=== PATIENT | male | born 1970 | race Caucasian/White ===

== ENCOUNTER 2019-03-04 00:25 | Inpatient (IN) | payer OTHER ==
[2019-03-04 00:57] LABS: Basophils % (Auto) 0.7 % (0.0-1.8); Eosinophils # (Auto) 0.1 K/mm3 (0.0-0.4); Eosinophils % (Auto) 2.4 % (0.0-4.3); Hematocrit 27.4 % (35.5-45.6); Hemoglobin 9.4 gm/dl (11.8-15.2); Lymphocytes # (Auto) 1.8 K/mm3 (1.2-5.4); Mean Corpuscular HGB Conc 34 % (32-34); Mean Corpuscular Volume 84 fl (84-94); Monocytes # (Auto) 0.5 K/mm3 (0.0-0.8); Red Blood Count 3.25 M/mm3 (3.65-5.03); Red Cell Distribution Width 15.3 % (13.2-15.2)
[2019-03-04 01:01] LABS: Platelet Count 83 K/mm3 (140-440)
[2019-03-04 01:18] LABS: Alanine Aminotransferase 34 units/L (7-56); Albumin 2.9 g/dL (3.9-5); BUN/Creatinine Ratio 58; Blood Urea Nitrogen 29 mg/dL (9-20); Calcium 8.4 mg/dL (8.4-10.2); Hemolysis Index 9
[2019-03-04] MEDS ORDERED: NACL 0.9% 1000 ML IV ONE (03:18)
[2019-03-04] MEDS ORDERED: LEVAQUIN 750MG/150ML 750 MG/150 ML BAG IV ONE (03:18)
[2019-03-04] MEDS ORDERED: TORADOL IV ONE (03:19)
[2019-03-04] MEDS ORDERED: ZOFRAN IV ONE (03:19)
[2019-03-04] MEDS ORDERED: BENTYL IM ONE (03:19)
--- NOTE | 2019-03-04 05:02 | Cat Scan Report ---
PROCEDURE: CT ABDOMEN PELVIS W CON TECHNIQUE: Computerized axial tomography of the abdomen and pelvis was performed in arterial and del ayed phases after the IV injection of iodinated nonionic contrast. HISTORY: left sided abd pain with hematochezia COMPARISONS: None . FINDINGS: Partially visualized intrathoracic contents are unremarkable. Cirrhotic morphology of the liver. Splenomegaly. Numerous varices including gastroesophageal varices. Cholelithiasis. Nondistended gallbladder. Trace ascites appears most closely associated with the sma ll bowel and colon. The pancreas and adrenal glands are unremarkable. Kidneys show no worrisome lesions, hydronephrosis, or calculi. Urinary bladder is unremarkable. Fluid-filled duodenum and jejunum with wall thickening and adjacent stranding and edema. Moderate sto ol burden. Colonic wall thickening is overall mild and most significant in the ascending colon. The a ppendix is predominantly air-filled and normal in caliber. No periappendiceal stranding. No pneumoper itoneum. No focal fluid collection to suggest abscess. Aorta is normal in course and caliber. Superficial soft tissues are unremarkable. No acute or aggressive appearing skeletal findings. IMPRESSION: Areas of wall thickening in the small bowel and colon with adjacent edema are suggestive of enterocol itis. No pneumoperitoneum or abscess formation. Cirrhotic morphology of the liver with sequela of portal hypertension including gastroesophageal vari kenny. This document is electronically signed by Daryl Roth MD., March 04 2019 05:00:13 AM ET
[2019-03-04] MEDS ORDERED: FLAGYL 500 MG/100 ML 500 MG/100 ML BAG IV ONE (05:06)
--- NOTE | 2019-03-04 05:16 | Emergency Department Report ---
ED Abdominal Pain HPI - General Chief Complaint: Dizziness Stated Complaint: DIZZINESS AND PAIN ABD PAIN LEFT SIDE Time Seen by Provider: 03/04/19 03:13 Source: police Mode of arrival: Wheelchair Limitations: No Limitations, Language Barrier - History of Present Illness Initial Comments: Patient is a 48-year-old male with past medical history of diabetes and liver cirrhosis who is presenting with nausea vomiting and abdominal pain. Patient states pain is left-sided predominantly started this morning. Pain is 10 out of 10 in severity. Patient has had several episodes of nausea vomiting. Patient alsoblood in his stool as well. Patient's dizziness when he stands and is having a difficult time walking secondary to dizziness. Patient has some throbbing sensation in his lower back as well. Patient denies any cough cold or congestion. Patient denies fever Severity scale (0 -10): 9 - Related Data Allergies Allergy/AdvReac Type Severity Reaction Status Date / Time No Known Allergies Allergy Unverified 03/04/19 00:39 ED Review of Systems ROS: Stated complaint: DIZZINESS AND PAIN ABD PAIN LEFT SIDE Other details as noted in HPI Comment: All other systems reviewed and negative ED Past Medical Hx - Past Medical History Previous Medical History?: Yes Hx Diabetes: Yes Hx Renal Disease: Yes Additional medical history: Cirrhosis of Liver, - Surgical History Past Surgical History?: Yes Additional Surgical History: stomach SX, - Social History Smoking Status: Current Every Day Smoker Substance Use Type: None ED Physical Exam - General Limitations: No Limitations, Language Barrier General appearance: alert, in no apparent distress - Head Head exam: Present: atraumatic, normocephalic - Eye Eye exam: Present: normal appearance, PERRL, EOMI - ENT ENT exam: Present: mucous membranes moist - Neck Neck exam: Present: normal inspection - Respiratory Respiratory exam: Present: normal lung sounds bilaterally. Absent: respiratory distress, wheezes, rales, rhonchi - Cardiovascular Cardiovascular Exam: Present: normal rhythm, tachycardia, normal heart sounds. Absent: systolic murmur, diastolic murmur, rubs, gallop - GI/Abdominal GI/Abdominal exam: Present: soft, tenderness (left sided), normal bowel sounds. Absent: distended, guarding, rebound, rigid - Rectal Rectal exam: Present: deferred - Extremities Exam Extremities exam: Present: normal inspection - Back Exam Back exam: Present: normal inspection - Neurological Exam Neurological exam: Present: alert, oriented X3 - Psychiatric Psychiatric exam: Present: normal affect, normal mood - Skin Skin exam: Present: warm, dry, intact, normal color. Absent: rash ED Course Vital Signs 03/04/19 03/04/19 03/04/19 00:30 00:36 03:10 Temperature 98.1 F 98.1 F Pulse Rate 112 H 113 H 102 H Respiratory 22 18 15 Rate Blood Pressure 97/60 97/60 O2 Sat by Pulse 100 100 100 Oximetry 03/04/19 03/04/19 03/04/19 03:15 03:31 03:40 Temperature Pulse Rate 100 H 100 H Respiratory 18 16 20 Rate Blood Pressure 115/63 115/63 O2 Sat by Pulse 100 100 Oximetry 03/04/19 03/04/19 03/04/19 04:21 04:30 04:43 Temperature Pulse Rate 102 H 92 H Respiratory 13 18 Rate Blood Pressure 115/63 106/42 O2 Sat by Pulse 98 Oximetry ED Medical Decision Making - Lab Data Result diagrams: 03/04/19 00:43 03/04/19 00:43 Lab Results 03/04/19 03/04/19 03/04/19 Range/Units 00:43 00:43 03:29 WBC 4.7 (4.5-11.0) K/mm3 RBC 3.25 L (3.65-5.03) M/mm3 Hgb 9.4 L (11.8-15.2) gm/dl Hct 27.4 L (35.5-45.6) % MCV 84 (84-94) fl MCH 29 (28-32) pg MCHC 34 (32-34) % RDW 15.3 H (13.2-15.2) % Plt Count 83 L (140-440) K/mm3 Lymph % (Auto) 38.0 H (13.4-35.0) % [place] % (Auto) 10.0 H (0.0-7.3) % Eos % (Auto) 2.4 (0.0-4.3) % Baso % (Auto) 0.7 (0.0-1.8) % Lymph # 1.8 (1.2-5.4) K/mm3 [place] # 0.5 (0.0-0.8) K/mm3 Eos # 0.1 (0.0-0.4) K/mm3 Baso # 0.0 (0.0-0.1) K/mm3 Seg Neutrophils % 48.9 (40.0-70.0) % Seg Neutrophils # 2.3 (1.8-7.7) K/mm3 APTT 30.9 (24.2-36.6) Sec. Sodium 138 (137-145) mmol/L Potassium 4.0 (3.6-5.0) mmol/L Chloride 103.5 (98-107) mmol/L Carbon Dioxide 26 (22-30) mmol/L Anion Gap 13 mmol/L BUN 29 H (9-20) mg/dL Creatinine 0.5 L (0.8-1.5) mg/dL Estimated GFR > 60 ml/min BUN/Creatinine Ratio 58 % Glucose 327 H (75-100) mg/dL Lactic Acid (0.7-2.0) mmol/L Calcium 8.4 (8.4-10.2) mg/dL Total Bilirubin 1.40 H (0.1-1.2) mg/dL AST 31 (5-40) units/L ALT 34 (7-56) units/L Alkaline Phosphatase 136 H (35-129) units/L Total Protein 5.3 L (6.3-8.2) g/dL Albumin 2.9 L (3.9-5) g/dL Albumin/Globulin Ratio 1.2 % Lipase 22 (13-60) units/L /14/19 Range/Units 03:29 WBC (4.5-11.0) K/mm3 RBC (3.65-5.03) M/mm3 Hgb (11.8-15.2) gm/dl Hct (35.5-45.6) % MCV (84-94) fl MCH (28-32) pg MCHC (32-34) % RDW (13.2-15.2) % Plt Count (140-440) K/mm3 Lymph % (Auto) (13.4-35.0) % [place] % (Auto) (0.0-7.3) % Eos % (Auto) (0.0-4.3) % Baso % (Auto) (0.0-1.8) % Lymph # (1.2-5.4) K/mm3 [place] # (0.0-0.8) K/mm3 Eos # (0.0-0.4) K/mm3 Baso # (0.0-0.1) K/mm3 Seg Neutrophils % (40.0-70.0) % Seg Neutrophils # (1.8-7.7) K/mm3 APTT (24.2-36.6) Sec. Sodium (137-145) mmol/L Potassium (3.6-5.0) mmol/L Chloride (98-107) mmol/L Carbon Dioxide (22-30) mmol/L Anion Gap mmol/L BUN (9-20) mg/dL Creatinine (0.8-1.5) mg/dL Estimated GFR ml/min BUN/Creatinine Ratio % Glucose (75-100) mg/dL Lactic Acid 2.50 H* (0.7-2.0) mmol/L Calcium (8.4-10.2) mg/dL Total Bilirubin (0.1-1.2) mg/dL AST (5-40) units/L ALT (7-56) units/L Alkaline Phosphatase (35-129) units/L Total Protein (6.3-8.2) g/dL Albumin (3.9-5) g/dL Albumin/Globulin Ratio % Lipase (13-60) units/L - Radiology Data Ordering Physician: RANJAN ADAN MD Date of Service: 03/04/19 Procedure(s): CT abdomen pelvis w con Accession Number(s): [id number] cc: RANJAN ADAN MD PROCEDURE: CT ABDOMEN PELVIS W CON TECHNIQUE: Computerized axial tomography of the abdomen and pelvis was performed in arterial and delayed phases after the IV injection of iodinated nonionic contrast. HISTORY: left sided abd pain with hematochezia COMPARISONS: None . FINDINGS: Partially visualized intrathoracic contents are unremarkable. Cirrhotic morphology of the liver. Splenomegaly. Numerous varices including gastroesophageal varices. Cholelithiasis. Nondistended gallbladder. Trace ascites appears most closely associated with the small bowel and colon. The pancreas and adrenal glands are unremarkable. Kidneys show no worrisome lesions, hydronephrosis, or calculi. Urinary bladder is unremarkable. Fluid-filled duodenum and jejunum with wall thickening and adjacent stranding and edema. Moderate stool burden. Colonic wall thickening is overall mild and most significant in the ascending colon. The appendix is predominantly air-filled and normal in caliber. No periappendiceal stranding. No pneumoperitoneum. No focal fluid collection to suggest abscess. Aorta is normal in course and caliber. Superficial soft tissues are unremarkable. No acute or aggressive appearing skeletal findings. IMPRESSION: Areas of wall thickening in the small bowel and colon with adjacent edema are suggestive of enterocolitis. No pneumoperitoneum or abscess formation. Cirrhotic morphology of the liver with sequela of portal hypertension including gastroesophageal varices. This document is electronically signed by Osiris Patel MD., March 04 2019 05:00:13 AM ET Transcribed By: KALYN Dictated By: OSIRIS PATEL MD Electronically Authenticated By: OSIRIS PATEL MD Signed Date/Time: 03/04/19501 DD/ 7 TD/TT: 03/04/19317 - Medical Decision Making Patient is a 48-year-old male presenting with left-sided abdominal discomfort. Patient's had nausea and vomiting as well as hematochezia. Patient is guaiac positive at this time. Patient's CT shows that he has acute enterocolitis. Patient started on Levaquin and Flagyl. Patient given IV hydration. His blood pressure responded well to fluid bolus. She is admitted to the hospitalist service at this time. Critical care attestation.: If time is entered above; I have spent that time in minutes in the direct care of this critically ill patient, excluding procedure time. ED Disposition Clinical Impression: Acute hemorrhagic colitis, Hyperglycemia Sepsis Qualifiers: Sepsis type: sepsis due to unspecified organism Qualified Code(s): A41.9 - Sepsis, unspecified organism Disposition: OP ADMIT IP TO THIS HOSP Is pt being admited?: Yes Does the pt Need Aspirin: No Condition: Stable Time of Disposition: 05:16
[2019-03-04] MEDS ORDERED: SODIUM CHLORIDE FLUSH SYRINGE 10 ML IV PRN (05:48)
[2019-03-04] MEDS ORDERED: ZOFRAN IV PRN (05:48)
[2019-03-04] MEDS ORDERED: PROTONIX IV NR (05:52)
--- NOTE | 2019-03-04 05:53 | History and Physical Report ---
History of Present Illness Date of examination: 03/04/19 History of present illness: 48-year-old man with a history of cirrhosis, diabetes comes emergency room with complaints of left lower quadrant that started 2 days ago. Pain is sharp, constant, intensity is 7/10, no radiation, cannot identify exacerbating factor. Complaining of diarrhea, 2-4 episodes a day, black stool small amounts for her here in the emergency room he had a large amount of melena. He has been feeling dizzy when changing position. From his description, he has a history of varices, status post banding. He is been taking Advil 2-41 month Review of systems Constitutional: no weight loss, chills, fever Ears, eyes, nose, mouth and throat: no nasal congestion, no nasal discharge, no sinus pressure, no vision change, no red eye. Neck: No neck pain or rigidity. Cardiovascular: no palpitations, chest pain Respiratory: no cough, shortness of breath Gastrointestinal: no hematochezia Genitourinary : no frequency , no hematuria Musculoskeletal: no joint swelling or muscle ache Integumentary: no rash, no pruritis Neurological: no parathesias, no focal weakness Endocrine: no cold or heat intolerance, no polyuria or polydipsia Hematologic/Lymphatic: no easy bruising, no easy bleeding, no gland swelling Allergic/Immunologic: no urticaria, no angioedema. PAST MEDICAL HISTORY:cirrhosis, diabetes PAST SURGICAL HISTORY: Surgery and stomach SOCIAL HISTORY: Denies alcohol, drugs, tobacco FAMILY HISTORY: Hypertension Medications and Allergies Allergies Allergy/AdvReac Type Severity Reaction Status Date / Time No Known Allergies Allergy Unverified 03/04/19 00:39 Active Meds: Active Medications Sodium Chloride (Nacl 0.9% 1000 Ml) 1,000 mls @ 150 mls/hr IV DIRECT HENRY Ondansetron HCl (Zofran) 4 mg IV Q8H PRN PRN Reason: Nausea And Vomiting Sodium Chloride (Sodium Chloride Flush Syringe 10 Ml) 10 ml IV BID HENRY Sodium Chloride (Sodium Chloride Flush Syringe 10 Ml) 10 ml IV PRN PRN PRN Reason: LINE FLUSH Exam - Physical Exam Narrative exam: General Apperance: The patient lying in bed, breathing comfortable HEENT: Normocephalic, atraumatic. Pupils equally round and reactive to light, EOMI, no sclericterus or JVD or thyromegaly or nodule. , no carotid bruit, mucous membranes moist, no exudate or erythema Heart: S1-S2, regular is rhythm Lungs: Clear to auscultation bilaterally, breathing comfortable Abdomen: Positive bowel sounds, soft, tender in left lower quadrant, nondistended, no organomegaly Extremities: No edema cyanosis clubbing Skin: no rash, nodule, warm and dry Neuro: cranial nerves 2-12 intact, speech is fluent, motor/sensory intact - Constitutional Vitals: Temp Pulse Resp BP Pulse Ox 98.1 F 92 H 18 106/42 98 03/04/19 00:36 03/04/19 04:30 03/04/19 04:43 03/04/19 04:30 03/04/19 04:43 Results - Labs CBC & Chem 7: 03/04/19 16:44 03/04/19 00:43 Labs: Abnormal lab results 03/04/19 03/04/19 03/04/19 Range/Units 00:43 00:43 03:29 RBC 3.25 L (3.65-5.03) M/mm3 Hgb 9.4 L (11.8-15.2) gm/dl Hct 27.4 L (35.5-45.6) % RDW 15.3 H (13.2-15.2) % Plt Count 83 L (140-440) K/mm3 Lymph % (Auto) 38.0 H (13.4-35.0) % [place] % (Auto) 10.0 H (0.0-7.3) % BUN 29 H (9-20) mg/dL Creatinine 0.5 L (0.8-1.5) mg/dL Glucose 327 H (75-100) mg/dL Lactic Acid 2.50 H* (0.7-2.0) mmol/L Total Bilirubin 1.40 H (0.1-1.2) mg/dL Alkaline Phosphatase 136 H (35-129) units/L Total Protein 5.3 L (6.3-8.2) g/dL Albumin 2.9 L (3.9-5) g/dL - Imaging and Cardiology CT scan - abdomen: report reviewed CT scan - pelvis: report reviewed Assessment and Plan Assessment GI bleed secondary to NSAID use Enterocolitis Cirrhosis Diabetes Plan Admit to medicine Start Protonix, octreotide drips, continue IV fluids Monitors serial hemoglobin, consult GI, critical care Case discussed with Dr. Lester Check stool studies, start Flagyl, Levaquin Check fingersticks and initiate insulin sliding scale DVT prophylaxis
[2019-03-04] MEDS ORDERED: D50W (25GM) Syringe IV PRN (05:54)
[2019-03-04] MEDS ORDERED: NACL 0.9% 1000 ML 1,000 ML IV SCH ×2 (06:00→13:00)
[2019-03-04 06:26] LABS: Hematocrit 22.3 % (35.5-45.6); Hemoglobin 7.7 gm/dl (11.8-15.2)
[2019-03-04] MEDS: PROTONIX 80 MG in NACL 0.9% 100 ML IV SCH ×2 (06:50→17:46)
[2019-03-04] MEDS ORDERED: PROTONIX IV ONE ×2 (06:52→07:31)
[2019-03-04] MEDS: SandoSTATIN 500 MCG in NACL 0.9% 100 ML IV SCH (07:00)
[2019-03-04] MEDS ORDERED: FLAGYL 500 MG/100 ML 500 MG/100 ML BAG IV SCH (07:00)
[2019-03-04] MEDS ORDERED: NACL 0.9% 1000 ML 1,000 ML ONE ×2 (07:41→14:46)
[2019-03-04] MEDS: HumuLIN R SUB-Q SCH ×4 (09:20→19:00)
[2019-03-04] MEDS ORDERED: NACL 0.9% 500 ML 500 ML IV ONE ×2 (10:08→21:03)
[2019-03-04 10:22] LABS: Hematocrit 21.5 % (35.5-45.6); Hemoglobin 7.2 gm/dl (11.8-15.2)
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
[2019-03-04] MEDS ORDERED: NACL 0.9% 1000 ML 2,000 ML ONE (11:07)
[2019-03-04] MEDS ORDERED: NACL 0.9% 1000 ML 2,000 ML IV ONE (11:09)
[2019-03-04 11:29] LABS: INR 1.37 (0.87-1.13)
[2019-03-04] MEDS ORDERED: HumuLIN R SUB-Q SCH (11:30)
[2019-03-04] MEDS ORDERED: NACL 0.9% 500 ML 500 ML ONE ×2 (11:33→14:35)
--- NOTE | 2019-03-04 11:55 | Consultation ---
History of Present Illness - Reason for Consult Consult date: 03/04/19 GI bleed - History of Present Illness Patient with a history of cirrhosis, portal hypertension and gastric and esophageal varices demonstrated on CT scan of the abdomen presents with bleeding and melena over the past 3 days. The patient is previously undergone variceal banding at [facility]. Past History Past Medical History: liver disease, other (as per HPI) Past Surgical History: Other (EGD with esophageal banding) Social history: no significant social history. denies: alcohol abuse (Quit drinking last year) Family history: hypertension Medications and Allergies Allergies Allergy/AdvReac Type Severity Reaction Status Date / Time No Known Allergies Allergy Unverified 03/04/19 00:39 Active Meds: Active Medications Dextrose (D50w (25gm) Syringe) 50 ml IV PRN PRN PRN Reason: Hypoglycemia Sodium Chloride (Nacl 0.9% 1000 Ml) 1,000 mls @ 150 mls/hr IV DIRECT HENRY Last Admin: 03/04/19 08:04 Dose: 150 mls/hr Documented by: Pantoprazole Sodium 80 mg/ (Sodium Chloride) 100 mls @ 10 mls/hr IV DIRECT S CH Last Admin: 03/04/19 06:50 Dose: 8 mg/hr, 10 mls/hr Documented by: Octreotide Acetate 500 mcg/ (Sodium Chloride) 101 mls @ 5.05 mls/hr IV TITR HENRY; Protocol Last Admin: 03/04/19 07:00 Dose: 25 mcg/hr, 5.05 mls/hr Documented by: Levofloxacin/Dextrose (Levaquin 750mg/150ml) 750 mg in 150 mls @ 100 mls/hr IV Q24HR HENRY; Protocol Metronidazole (Flagyl 500 Mg/100 Ml) 500 mg in 100 mls @ 100 mls/hr IV Q8HR HENRY; Protocol Sodium Chloride (Nacl 0.9% 1000 Ml) 2,000 mls @ 999 mls/hr IV BOLUS ONE Stop: 03/04/19 13:09 Insulin Human Regular (Humulin R) 0 units SUB-Q Q6HR HENRY; Protocol Last Admin: 03/04/19 09:20 Dose: 6 units Documented by: Ondansetron HCl (Zofran) 4 mg IV Q8H PRN PRN Reason: Nausea And Vomiting Sodium Chloride (Sodium Chloride Flush Syringe 10 Ml) 10 ml IV BID HENRY Sodium Chloride (Sodium Chloride Flush Syringe 10 Ml) 10 ml IV PRN PRN PRN Reason: LINE FLUSH Review of Systems All systems: negative Exam - Constitutional Vitals: Temp Pulse Resp BP Pulse Ox 98.2 F 89 16 99/54 96 03/04/19 08:05 03/04/19 10:48 03/04/19 10:48 03/04/19 10:48 03/04/19 10:48 General appearance: Present: no acute distress - EENT Eyes: Present: EOM intact ENT: hearing intact - Neck Neck: Present: supple - Respiratory Respiratory effort: normal - Cardiovascular Rhythm: regular - Abdominal General gastrointestinal: Present: soft Male genitourinary: Present: deferred - Rectal Rectal Exam: deferred - Psychiatric Psychiatric: appropriate mood/affect, cooperative Results - Labs CBC & Chem 7: 03/04/19 10:10 03/04/19 00:43 Labs: Abnormal lab results 03/04/19 03/04/19 03/04/19 Range/Units 00:43 00:43 03:29 RBC 3.25 L (3.65-5.03) M/mm3 Hgb 9.4 L (11.8-15.2) gm/dl Hct 27.4 L (35.5-45.6) % RDW 15.3 H (13.2-15.2) % Plt Count 83 L (140-440) K/mm3 Lymph % (Auto) 38.0 H (13.4-35.0) % [place] % (Auto) 10.0 H (0.0-7.3) % PT (12.2-14.9) Sec. INR (0.87-1.13) BUN 29 H (9-20) mg/dL Creatinine 0.5 L (0.8-1.5) mg/dL Glucose 327 H (75-100) mg/dL POC Glucose (70-105) Lactic Acid 2.50 H* (0.7-2.0) mmol/L Total Bilirubin 1.40 H (0.1-1.2) mg/dL Alkaline Phosphatase 136 H (35-129) units/L Total Protein 5.3 L (6.3-8.2) g/dL Albumin 2.9 L (3.9-5) g/dL Crossmatch 03/04/19 03/04/19 03/04/19 Range/Units 06:06 08:21 10:10 RBC (3.65-5.03) M/mm3 Hgb 7.7 L 7.2 L (11.8-15.2) gm/dl Hct 22.3 L 21.5 L (35.5-45.6) % RDW (13.2-15.2) % Plt Count (140-440) K/mm3 Lymph % (Auto) (13.4-35.0) % [place] % (Auto) (0.0-7.3) % PT (12.2-14.9) Sec. INR (0.87-1.13) BUN (9-20) mg/dL Creatinine (0.8-1.5) mg/dL Glucose (75-100) mg/dL POC Glucose 320 H (70-105) Lactic Acid (0.7-2.0) mmol/L Total Bilirubin (0.1-1.2) mg/dL Alkaline Phosphatase (35-129) units/L Total Protein (6.3-8.2) g/dL Albumin (3.9-5) g/dL Crossmatch 03/04/19 03/04/19 Range/Units 10:10 10:10 RBC (3.65-5.03) M/mm3 Hgb (11.8-15.2) gm/dl Hct (35.5-45.6) % RDW (13.2-15.2) % Plt Count (140-440) K/mm3 Lymph % (Auto) (13.4-35.0) % [place] % (Auto) (0.0-7.3) % PT 17.8 H (12.2-14.9) Sec. INR 1.37 H (0.87-1.13) BUN (9-20) mg/dL Creatinine (0.8-1.5) mg/dL Glucose (75-100) mg/dL POC Glucose (70-105) Lactic Acid (0.7-2.0) mmol/L Total Bilirubin (0.1-1.2) mg/dL Alkaline Phosphatase (35-129) units/L Total Protein (6.3-8.2) g/dL Albumin (3.9-5) g/dL Crossmatch See Detail - Imaging and Cardiology CT scan - abdomen: image reviewed Assessment and Plan Patient with recurrent bleeding with melena and a history of portal hypertension and gastric and esophageal varices. Patient will need to be op timized medically including transfusion of blood and blood products with correction of coagulopathy. Patient is scheduled to undergo endoscopy. Ultimately, the patient may require transjugular intrahepatic portosystemic shunt placement. If this need arises, would recommend the patient be transferred to either [place] or [facility] given a lack of resources.
[2019-03-04 12:57] LABS: Bacteria,Urine 1+ /HPF (Negative); Bilirubin,Urine NEG (Negative); Blood,Urine NEG (Negative); Color,Urine Yellow (Yellow); Protein,Urine <15 mg/dL mg/dL (Negative)
--- NOTE | 2019-03-04 13:10 | Anesthesia Consultation ---
Anesthesia Consult and Med Hx Date of service: 03/04/19 - Airway Anesthetic Teeth Evaluation: Poor ROM Head & Neck: Adequate Mental/Hyoid Distance: Adequate Mallampati Class: Class III Intubation Access Assessment: Possibly Difficult - Pulmonary Exam CTA: Yes - Cardiac Exam Cardiac Exam: RRR - Pre-Operative Health Status ASA Pre-Surgery Classification: ASA4 Proposed Anesthetic Plan: MAC - Pulmonary Hx Respiratory Symptoms: No - Cardiovascular System Hx Hypertension: No Hx Heart Attack/AMI: No Hx Percutaneous Transluminal Coronary Angioplasty (PTCA): No Hx Cardia Arrhythmia: No - Central Nervous System CVA: No Hx Psychiatric Problems: No - Gastrointestinal Hx Ulcer: Yes Hx Gastroesophageal Reflux Disease: Yes - Endocrine Hx Renal Disease: Yes Hx Cirrhosis: Yes (complicated by portal HTN, hx bleeding varices) Hx Insulin Dependent Diabetes: Yes Hx Thyroid Disease: No - Hematic Hx Anemia: Yes - Additional Comments Anesthesia Medical History Comments: PMH EtOH cirrhosis complicated by hx bleeding esophageal varices s/p banding, renal disease, DM, GERD presenting with bloody stools concerning for recurrent variceal bleed. Hyptoensive in ED with acute drop in Hb, now s/p 1 unit pRBCs. Glucose elevated. Plan EGD with possible banding.
--- NOTE | 2019-03-04 13:11 | Anesthesia Day of Surgery ---
Anesthesia Day of Surgery - Day of Surgery Patient Examined: Yes Patient H&P Reviewed: Yes Patient is NPO: Yes
[2019-03-04] MEDS ORDERED: HumuLIN R IV ONE (13:30)
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
[2019-03-04] MEDS ORDERED: XYLOCAINE 2% INFILTRATI ONE (13:56)
[2019-03-04] MEDS ORDERED: VERSED IV ONE (13:57)
[2019-03-04] MEDS ORDERED: DIPRIVAN 10 MG/ML IV ONE ×2 (13:57→15:14)
[2019-03-04] MEDS ORDERED: AMIDATE IV ONE (13:57)
--- NOTE | 2019-03-04 14:27 | Consultation ---
History of Present Illness Consult date: 03/04/19 Requesting physician: HAI SOSA Reason for consult: other (Acute G.I. Bleed) History of present illness: PULMONARY/CCM CONSULT NOTE (Full dictation # [id number]) Please see dictated notes for full details Past History Past Medical History: liver disease, other (as per HPI) Past Surgical History: Other (EGD with esophageal banding) Social history: no significant social history. denies: alcohol abuse (Quit drinking last year) Family history: hypertension Medications and Allergies Allergies Allergy/AdvReac Type Severity Reaction Status Date / Time No Known Allergies Allergy Unverified 03/04/19 00:39 Active Meds: Active Medications Dextrose (D50w (25gm) Syringe) 50 ml IV PRN PRN PRN Reason: Hypoglycemia Sodium Chloride (Nacl 0.9% 1000 Ml) 1,000 mls @ 150 mls/hr IV DIRECT HENRY Last Admin: 03/04/19 08:04 Dose: 150 mls/hr Documented by: Pantoprazole Sodium 80 mg/ (Sodium Chloride) 100 mls @ 10 mls/hr IV DIRECT HENRY Last Admin: 03/04/19 06:50 Dose: 8 mg/hr, 10 mls/hr Documented by: Octreotide Acetate 500 mcg/ (Sodium Chloride) 101 mls @ 5.05 mls/hr IV TITR HENRY; Protocol Last Admin: 03/04/19 07:00 Dose: 25 mcg/hr, 5.05 mls/hr Documented by: Levofloxacin/Dextrose (Levaquin 750mg/150ml) 750 mg in 150 mls @ 100 mls/hr IV Q24HR HENRY; Protocol Metronidazole (Flagyl 500 Mg/100 Ml) 500 mg in 100 mls @ 100 mls/hr IV Q8HR HENRY; Protocol Sodium Chloride (Nacl 0.9% 1000 Ml) 1,000 mls @ 50 mls/hr IV DIRECT HENRY Last Admin: 03/04/19 13:05 Dose: 50 mls/hr Documented by: Insulin Human Regular (Humulin R) 0 units SUB-Q Q6HR HENRY; Protocol Last Admin: 03/04/19 09:20 Dose: 6 units Documented by: Ondansetron HCl (Zofran) 4 mg IV Q8H PRN PRN Reason: Nausea And Vomiting Sodium Chloride (Sodium Chloride Flush Syringe 10 Ml) 10 ml IV BID HENRY Sodium Chloride (Sodium Chloride Flush Syringe 10 Ml) 10 ml IV PRN PRN PRN Reason: LINE FLUSH Physical Examination Vital signs: Vital Signs Temp Pulse Resp BP Pulse Ox 98.1 F 112 H 22 97/60 100 03/04/19 00:30 03/04/19 00:30 03/04/19 00:30 03/04/19 00:30 03/04/19 00:30 Results - Laboratory Findings CBC and BMP: 03/04/19 10:10 03/04/19 00:43 PT/INR, D-dimer PT 17.8 Sec. (12.2-14.9) H 03/04/19 10:10 INR 1.37 (0.87-1.13) H 03/04/19 10:10 Abnormal lab findings: Abnormal Labs 03/04/19 03/04/19 03/04/19 00:43 00:43 03:29 RBC 3.25 L Hgb 9.4 L Hct 27.4 L RDW 15.3 H Plt Count 83 L Lymph % (Auto) 38.0 H [place] % (Auto) 10.0 H PT INR BUN 29 H Creatinine 0.5 L Glucose 327 H POC Glucose Lactic Acid 2.50 H* Total Bilirubin 1.40 H Alkaline Phosphatase 136 H Total Protein 5.3 L Albumin 2.9 L Ur Specific [place] Urine WBC (Auto) Crossmatch 03/04/19 03/04/19 03/04/19 06:06 08:21 10:10 RBC Hgb 7.7 L 7.2 L Hct 22.3 L 21.5 L RDW Plt Count Lymph % (Auto) [place] % (Auto) PT INR BUN Creatinine Glucose POC Glucose 320 H Lactic Acid Total Bilirubin Alkaline Phosphatase Total Protein Albumin Ur Specific [place] Urine WBC (Auto) Crossmatch 03/04/19 03/04/19 03/04/19 10:10 10:10 12:44 RBC Hgb Hct RDW Plt Count Lymph % (Auto) [place] % (Auto) PT 17.8 H INR 1.37 H BUN Creatinine Glucose POC Glucose Lactic Acid Total Bilirubin Alkaline Phosphatase Total Protein Albumin Ur Specific [place] 1.043 H Urine WBC (Auto) 12.0 H Crossmatch See Detail 03/04/19 03/04/19 13:07 13:59 RBC Hgb Hct RDW Plt Count Lymph % (Auto) [place] % (Auto) PT INR BUN Creatinine Glucose POC Glucose 306 H 257 H Lactic Acid Total Bilirubin Alkaline Phosphatase Total Protein Albumin Ur Specific [place] Urine WBC (Auto) Crossmatch
[2019-03-04] MEDS ORDERED: NACL 0.9% 100 ML ONE (14:35)
--- NOTE | 2019-03-04 14:38 | Post Operative Note ---
Pre-op diagnosis: Melena Post-op diagnosis: other (Active esophageal variceal bleed, and gastric varices noted) Findings: 1. Distal esophageal varices, one with fibrin plug near Z-line, which subsequently actively bled. Total of 7 bands placed, 3 of which dislodged, possibly with retching. 2. Gastric varices. Procedure: EGD with variceal banding Anesthesia: GETA (After MAC, and decompensation due to bleeding), MAC Surgeon: MOI SCHMIDT Estimated blood loss: 50-100ml Pathology: none Condition: critical Disposition: ICU (Continue octreotide drip, IV bid PPI. Transfuse as needed.)
[2019-03-04] MEDS ORDERED: ZEMURON IV ONE (14:40)
[2019-03-04] MEDS ORDERED: VERSED ONE (14:42)
--- NOTE | 2019-03-04 15:06 | Operative Report ---
PROCEDURE: Upper endoscopy with variceal banding. HISTORY: The patient is a 48-year-old man with a known history of cirrhosis due to alcohol and type 1 diabetes. He has a history of a variceal bleed with banding last year. He presented with melena starting yesterday. No hematemesis. Procedure, Indications, risks, and benefits were explained and consent was obtained. The patient was placed in left lateral decubitus position and sedated. Video upper endoscope was passed through the mouth and oropharynx into the descending duodenum. Scope was then gradually withdrawn with close inspection of mucosa. FINDINGS: 1. Grade 2 distal esophageal varices noted initially. There was no active bleeding initially. After scope passage into the descending duodenum and coming back, decision was made that this was the likely source of bleeding. Inside [employer] Account Manager was attached to the scope and the scope was reintroduced. On reintroduction of the scope, fibrin plug was noted in the distal esophageal varix and this was suctioned in and a rubber band placed. Subsequently, 3 more rubber bands were placed and then the patient was noted to retch and then start actively bleeding. The distal esophageal varix variceal band was noted to have dislodged and 2 attempts were made to re-suction and replace it, which were unsuccessful. At this time, the patient started to decompensate and become hypoxic. Scope was therefore withdrawn, and the patient was intubated emergently. Afterwards, scope was reintroduced and 2 more bands were placed in good position with 1 capturing the area that had previously bled just near the Z-line. There was no active bleeding noted at the end of the procedure. A total of 7 bands had been deployed, though it appeared that 3 had dislodged. 2. Retroflex examination revealed grape cluster like gastric varices with no stigmata of bleeding. 3. Remainder stomach was normal except for patchy erythema consistent with portal hypertension. There was some fresh residual blood and clot noted in the proximal stomach. 4. Normal appearing duodenal bulb and duodenum. The patient tolerated the procedure, though he did become hypoxic requiring intubation during the procedure. At the end of it, he was hemodynamically stable. Pulse was 97. Systolic blood pressure was 115. IMPRESSION: 1. Esophageal varices -- with active bleeding noted during the procedure from a distal aspect. This was banded twice with the first band becoming dislodged probably during retching. Hemostasis was achieved. 2. Gastric varices noted in cardia. 3. Portal gastropathy. PLAN: 1. Monitor closely in ICU on octreotide drip. 2. Supportive care as needed with transfusions, etc. 3. Ultimately, may benefit from TIPS procedure, but this would need to be done at a transplant center. If he remains stable, we will try and determine whether he is appropriate to transfer to a liver transplant center for TIPS procedure. [facility]# [id number] HRC/NTS
[2019-03-04] MEDS ORDERED: DIPRIVAN 10 MG/ML 1,000 MG/100 ML BOTTLE IV ONE (15:19)
--- NOTE | 2019-03-04 15:20 | Event Note ---
Date: 03/04/19 Pt with Active esophageal variceal bleed, and gastric varices Gi completed EGD with findings 1. Distal esophageal varices, one with fibrin plug near Z-line, which subsequently actively bled. Total of 7 bands placed, 3 of which dislodged, possibly with retching. 2. Gastric varices. Pt with variceal banding but developed decompensation due to bleeding and had to be intubated and now needs sedation with Diprivan. PRBCs ordered and pressors as needed I d/w GI and Anesthesia The high probability of a clinically significant, sudden or life threatening deterioration of the [Hemodynamic and GI] system(s) required my full and direct attention, intervention and personal management. The aggregate critical care time was [31] minutes. This time is in addition to time spent performing reported procedures but includes the following: [x] Data Review and interpretation [x] Patient assessment and monitoring of vital signs [x] Documentation [x] Medication orders and management
[2019-03-04] MEDS: DIPRIVAN 10 MG/ML 1,000 MG/100 ML BOTTLE IV SCH ×2 (15:30→22:07)
--- NOTE | 2019-03-04 15:36 | Post Anesthesia Evaluation ---
- Post Anesthesia Evaluation Patient Participated: No Airway Patent: Yes Stable Respiratory Function: Yes Nausea/Vomiting: No Temp > 96.8F: Yes Pain Manageable: Yes Adequeate Hydration: Yes Anesthesia Complications: No Block Receding Appropriately: Not Applicable Patient on Ventilator: Yes (FiO2 100%, Peep 6) Other Comments: During procedure, patient experienced significant desaturation. Simultaneously, bleeding was noted from esophageal varices. Scope was withdrawn and patient was initially ventilated with BVM and then intubated (see anesthesia record for details). No significant aspiration noted during intubation. SpO2 improved quickly to 100% and procedure continued. 1 unit pRBCs was hung. At conclusion of procedure, patient transported to ICU with monitors, intubated, ventilated with AMBU, VSS throughout. On arrival to ICU, handoff given to RT and RN, patient placed on ventilator and sedation started per ICU orders.
[2019-03-04] MEDS ORDERED: ARTIFICIAL TEARS OPHTH OINT OU PRN (15:49)
[2019-03-04] MEDS ORDERED: SUBLIMAZE IV PRN (15:49)
[2019-03-04] MEDS ORDERED: VASELINE LIP THERAPY TP PRN (15:49)
[2019-03-04] MEDS: fentaNYL DRIP Premix 2,000 MCG/100 ML BAG IV SCH (16:30)
[2019-03-04] MEDS: SODIUM CHLORIDE FLUSH SYRINGE 10 ML IV SCH ×2 (17:05→22:13)
--- NOTE | 2019-03-04 17:35 | XRay Report ---
PROCEDURE: XR CHEST 1V AP TECHNIQUE: Chest radiograph single view. HISTORY: ETT placement COMPARISONS: None . FINDINGS: Heart: Normal. Mediastinum/Vessels: Normal. Lungs/Pleural space: Linear atelectasis noted at the left base Bony thorax: No acute osseous abnormality. Life support devices: ET tube present. Tip is between thoracic inlet and the linda IMPRESSION: Left basilar atelectasis ET in satisfactory position This document is electronically signed by Britton Resendiz MD., March 04 2019 05:33:06 PM ET
[2019-03-04 18:22] LABS: Hematocrit 23.7 % (35.5-45.6)
[2019-03-04] MEDS ORDERED: LEVOPHED DRIP 4 MG/NS 250 ML 4 MG/250 ML BAG IV SCH (19:00)
[2019-03-04] MEDS ORDERED: Vasostrict 20 UNIT in NACL 0.9% 100 ML IV SCH (19:00)
--- NOTE | 2019-03-04 22:02 | Consultation ---
CONSULTING PHYSICIAN: Dr. Parker. REASON FOR CONSULTATION: Acute GI bleed and now acute hypoxemic respiratory failure, on mechanical ventilator support. CHIEF COMPLAINT AND HISTORY OF PRESENT ILLNESS: The patient is a 48-year-old male with past medical history significant amongst other things for a diagnosis of liver cirrhosis, liver disease and a prior history of alcohol abuse, reportedly quit drinking about a year ago, came in complaining of left lower quadrant pain started 2 days before he came in, pain was sharp, constant 7/10 without radiation. He denied any relieving or exacerbating factors. He had complained of about diarrhea, melena type stools and on the day of presentation in the Emergency Room, he had a large amount of melena. He began feeling dizzy. His history suggested variceal disease and he had been banded in the past. He was evaluated in the Emergency Room, stabilized and he was taken to the endoscopy suite. It seems like while at the endoscopy suite, he required intubation for the EGD procedure. They reported that he had variceal banding done in the ED suite, brought into the ICU post-endoscopy, where I stopped by to see him. When I stopped by to see him, he was on the mechanical ventilator. He was on a propofol drip that had just been started. With regards to the patient's tobacco use/abuse history, the records indicate that he is not a smoker. The above is an unfortunately as much of the history of presentation as I have. PAST MEDICAL HISTORY: History of liver cirrhosis, history of diabetes. He is obese, history of alcohol abuse. PAST SURGICAL HISTORY: He has had stomach surgery. Nature of which I do not know. MEDICATIONS: He was on at the time I stopped by to see him were reviewed, pertinent medications include the following: Levaquin 750 mg IV daily, Flagyl 500 mg IV q. 8 hours. Octreotide drip was going at 25 mcg per hour, Zofran 4 mg IV q. 8 hours p.r.n. nausea and vomiting, Protonix drip was going at 8 mg per hour and the propofol drip had just been started. ALLERGIES: No known drug allergies. DIET: Obese gentleman, acute weight loss or gain history is unknown. FAMILY AND SOCIAL HISTORY: According to the records, lives in the community. He has a history of alcohol abuse, but none in the past year plus. They denied tobacco or illicit drug use or abuse. There is a family history of hypertension. REVIEW OF SYSTEMS: Unobtainable secondary to patient's medical and mental condition. Since he has been here, he had the melena in the ER. No witnessed seizures. No hematochezia, no hematemesis otherwise. Review of systems is otherwise unobtainable. PHYSICAL EXAMINATION: VITAL SIGNS: At presentation in the Emergency Room, review of the vital signs, he was afebrile, temperature 98.1 degrees Fahrenheit with a pulse of 112, respiratory rate of 22, blood pressure 97/60, oxygen sats 100%, inspired oxygen concentration at that time was not recorded. When I stopped by to see him, he was on the mechanical ventilator, actually PRVC AC rate of 14, tidal volume 500, PEEP of 6, 100% FiO2 and 99% sats. GENERAL: He is a middle-aged male: Normocephalic, atraumatic, riding the mechanical ventilator without significant patient ventilator dyssynchrony. HEAD, EYES, EARS, NOSE AND THROAT: He is anicteric. No conjunctival erythema. Oropharynx is moist. He has ET tube at 23-24 cm at the lips. Large neck circumference. No gross jugular venous distention, no thyromegaly. Grossly, no palpable lymph nodes in the supraclavicular or submandibular lymph node chains. LUNGS: Auscultation of both lung akins unremarkable, essentially lungs are clear bilaterally. HEART: Heart sounds 1 and 2 are heard, regular rate and rhythm at the time of my evaluation, without rubs or murmurs. ABDOMEN: Soft, full, bowel sounds are positive, but hypoactive. No palpable hepatosplenomegaly. Nontender. EXTREMITIES: Without overt digital clubbing or cyanosis. No pedal edema. Pedal pulses were palpable and strong bilaterally. NEUROLOGIC: Pupils were equal, round, about 3 cm reactive to light. Extraocular muscle movements could not be assessed. He had spontaneous movements to all extremities. No fasciculations. No spasticity. The skin was of normal turgor without overt cellulitis or rash. LABORATORY DATA: From my review are as follows: Admission white cell count 4700 with a hemoglobin of 9.4, hematocrit of 27.4 and platelet count of 83. No manual differential. INR was 1.37. Serum sodium 138, potassium 4.0, chloride 104, bicarbonate 26, BUN 29, creatinine 0.5, glucose was 327. Lactic acid level was 2.5 at presentation, is now down to 1.60. Total bilirubin was 1.4, albumin 2.9. Otherwise, liver function tests within normal limits. Lipase is within normal limits. Urinalysis was negative for nitrites. He did have trace leukocyte esterase. He had moderate leukocyte esterase, 12 white cells per high power field. Two sets of blood cultures, no growth to date. He had a CT scan of the abdomen and pelvis that reports areas of wall thickening in the small bowel and colon suggestive of enterocolitis, cirrhotic liver and gastroesophageal varices. Lung windows were essentially unremarkable. ASSESSMENT: 1. Acute gastrointestinal bleed secondary to esophageal varices. 2. Esophageal varices. 3. History of liver cirrhosis. 4. Acute blood loss anemia. 5. Abdominal pain. 6. Obesity. 7. Diabetes. 8. Thrombocytopenia. 9. Lactic acidosis. 10. Acute kidney injury. PLAN: Keep him on full mechanical ventilator support overnight. Continue to watch him hemodynamically. Serial H and H to evaluate for blood loss. Continue the octreotide drip. Continue the Protonix drip. He is now status post banding. Oxygen will be weaned to keep sats greater than or equal to over 90%. Aspiration precautions will be maintained. Ventilator-associated pneumonia bundle has been instituted. We will keep him intubated to protect his airway for now. He is getting a little hypotensive. We will back down on this propofol sedation, use fentanyl. Vasopressors will be started as necessary to keep mean arterial pressures greater than or equal to over 65 mmHg. A PICC line consult will be placed in case he does decompensate, stable at this point. We will continue empiric antibiotic therapy for the variceal bleed and the possible enterocolitis. Blood cultures will be followed. Anti-infectives will be deescalated based on results of clinical and microbiologic data. He may also have a urinary tract infection. A CRP level will be ordered and trended as necessary to treating engineer helper clinical decision making. I will defer to the GI team for further management of the variceal bleeds. Flu and pneumonia vaccination will be addressed per protocol. Thank you very much for the consult, Dr. Parker, Dr. Hart. We will follow along and make further recommendations as picture progresses/becomes clearer. He is critically ill on life-sustaining interventions including mechanical ventilatory support at high risk of from decompensation of the gastrointestinal, cardiac and pulmonary systems. At this point, I have spent about 35-40 minutes of critical care time without overlap and excluding any procedural time that may be necessary. JOB# [id number] KENDRA/COLEMAN DUNHAM
[2019-03-04] MEDS: FLAGYL 500 MG/100 ML 500 MG/100 ML BAG IV SCH ×2 (22:08→22:09)
[2019-03-05] MEDS ORDERED: LEVAQUIN 750MG/150ML 750 MG/150 ML BAG IV SCH (03:00)
--- NOTE | 2019-03-05 03:38 | XRay Report ---
PROCEDURE: XR CHEST 1V AP TECHNIQUE: Chest radiograph single view. HISTORY: follow up respiratory failure COMPARISONS: None . FINDINGS: Heart: Normal. Mediastinum/Vessels: Normal. Lungs/Pleural space: Lungs are expanded. There is atelectasis at the left lung base. There are no ac paola infiltrates, effusions or pneumothoraces.. Bony thorax: No acute osseous abnormality. Life support devices: The endotracheal tube is approximately 4 cm above the linda.. IMPRESSION: The heart size is normal.. Lungs are expanded. There is atelectasis at the left lung base. There are no acute infiltrates, effus ions or pneumothoraces.. The endotracheal tube is approximately 4 cm above the linda.. This document is electronically signed by Nikhil Mantilla MD., March 05 2019 03:36:16 AM ET
[2019-03-05] MEDS: PROTONIX 80 MG in NACL 0.9% 100 ML IV SCH (03:56)
[2019-03-05] MEDS: SandoSTATIN 500 MCG in NACL 0.9% 100 ML IV SCH (03:56)
[2019-03-05] MEDS: fentaNYL DRIP Premix 2,000 MCG/100 ML BAG IV SCH ×4 (03:57→22:30)
[2019-03-05] MEDS: DIPRIVAN 10 MG/ML 1,000 MG/100 ML BOTTLE IV SCH ×3 (04:49→16:52)
[2019-03-05 05:15] LABS: Basophils % (Auto) 0.6 % (0.0-1.8); Eosinophils # (Auto) 0.1 K/mm3 (0.0-0.4); Eosinophils % (Auto) 2.3 % (0.0-4.3); Hematocrit 27.5 % (35.5-45.6); Hemoglobin 9.6 gm/dl (11.8-15.2); Lymphocytes # (Auto) 1.2 K/mm3 (1.2-5.4); Lymphocytes % (Auto) 21.3 % (13.4-35.0); Mean Corpuscular HGB Conc 35 % (32-34); Mean Corpuscular Volume 87 fl (84-94); Monocytes # (Auto) 0.5 K/mm3 (0.0-0.8); Monocytes % (Auto) 9.4 % (0.0-7.3); Red Blood Count 3.15 M/mm3 (3.65-5.03); Red Cell Distribution Width 16.4 % (13.2-15.2)
[2019-03-05 05:38] LABS: BUN/Creatinine Ratio 40; Blood Urea Nitrogen 28 mg/dL (9-20); Calcium 7.3 mg/dL (8.4-10.2); Hemolysis Index 16
[2019-03-05] MEDS: HumuLIN R SUB-Q SCH ×2 (05:47)
[2019-03-05] MEDS: FLAGYL 500 MG/100 ML 500 MG/100 ML BAG IV SCH ×3 (05:48→22:47)
[2019-03-05 07:13] LABS: Platelet Count 47 K/mm3 (140-440)
--- NOTE | 2019-03-05 07:49 | Progress Note ---
Assessment and Plan -Acute hypoxemic respiratory failure on MVS -Hypovolemic shock. -GI bleed. -Enterocolitis. -Cirrhosis -Coagulopathy -Diabetes mellitus type II. -Active esophageal variceal bleed, and gastric varices GI completed EGD with findings 1. Distal esophageal varices, one with fibrin plug near Z-line, which subseque ntly actively bled. Total of 7 bands placed, 3 of which dislodged, possibly with retching. 2. Gastric varices. -Continue with MVS support -VAP bundle addressed -SATs and SBTs as tolerated, no further interventions planned by GI. If he bleeds, then plan is to transfer to tertiary center with capabilities for TIPS -Vasopressor support keep MAP>65 -Continue bronchodilators with pulmonary hygiene per RT - On Octreotide and pantoprazole -Supportive transfusions as indicated, keep Hgb>7g/dL -Aspiration precautions with HOB >40 -VTE prophylaxis( SCDs for now, in view of thrombocytopenia and GIB) - Supplemental oxygen as needed to keep O2 sat's > 90% -Lung protective strategies - CXR and ABG in am -Accuchecks with glycemic control per SSI for target blood glucose <180mg/dL - Titrate sedation to RASS 0 to -1 - Prevention of delirium, maintenance of sleep-wake cycle - Avoid nephrotoxic agents, adjust all antibiotics and medications for CrCL and GFR -Empiric antibiotics for enterocolitis, de-escalate and monitor clinically -Aspiration precautions -If no enteral feeding int eh next 72 hours will need to address alternate sources of nutrition _Substance abuse counselling once he is liberated from MVS and is able to actively participate in the discussions -Discussed with ICU team during ICU-IDT rounds CONDITION: CRITICAL PROGNOSIS: GUARDED CODE STATUS: FULL CODE The high probability of a clinically significant, sudden or life threatening deterioration of the [Respiratory, hemodynamic and GI] system(s) required my full and direct attention, intervention and personal management. The aggregate critical care time was [31] minutes. This time is in addition to time spent performing reported procedures but includes the following: [x] Data Review and interpretation [x] Patient assessment and monitoring of vital signs [x] Documentation [x] Medication orders and management Subjective Date of service: 03/05/19 Interval history: Patient is seen today for: Acute GI bleed; Esophageal varices s/p banding; Acute hypoxemic respiratory failure on MVS; Hemorrhagic Shock; liver cirrhosis; Acute blood loss anemia; Abdominal pain; Obesity; Diabetes; Thrombocytopenia; Lactic acidosis; Acute kidney injury. Seen and examined at bedside; 24hour events reviewed; vitals, labs, medications, chart reviewed; nursing and respiratory care staff consulted; no adverse overnight events reported to me; resting peacefully in bed; on mechanical ventilatory support, remains agitated on and off requiring fentanyl and propofol ;no fevers, no vomiting, no diarrhea, galicia in place Objective - Exam Narrative Exam: General appearance: Present: other (Intubated, sedated) - EENT Eyes: Present: PERRL, EOM intact ENT: Orally intubated, ETT at 23cm , size 7.5 No patient-ventilator dys-synchrony - Neck Neck: Present: supple, normal ROM - Respiratory Respiratory effort: normal Respiratory: bilateral: Decreased AE bilaterally with occasional rhonchi - Cardiovascular Rhythm: regular Heart Sounds: Present: S1 & S2. Absent: gallop, rub - Extremities Extremities: no ischemia, No edema, Full ROM - Abdominal General gastrointestinal: soft, non-tender, non-distended, hypoactive bowel sounds - Integumentary Integumentary: Present: clear, warm, dry - Neurologic Neurologic: Sedated Vital Signs - 12hr 03/04/19 03/04/19 03/04/19 19:49 19:51 20:00 Temperature 98.3 F 98.2 F Pulse Rate 82 82 82 Respiratory 18 18 18 Rate Respiratory Rate [Abdomen] Blood Pressure 82/53 82/53 83/54 O2 Sat by Pulse 100 100 Oximetry 03/04/19 03/04/19 03/04/19 20:04 20:11 20:21 Temperature 98.2 F Pulse Rate 86 83 83 Respiratory 18 18 18 Rate Respiratory Rate [Abdomen] Blood Pressure 83/54 82/53 84/55 O2 Sat by Pulse 100 100 100 Oximetry 03/04/19 03/04/19 03/04/19 20:30 20:34 20:41 Temperature 98.2 F Pulse Rate 82 86 84 Respiratory 18 18 18 Rate Respiratory Rate [Abdomen] Blood Pressure 83/55 83/55 83/54 O2 Sat by Pulse 100 100 100 Oximetry 03/04/19 03/04/19 03/04/19 20:51 21:00 21:04 Temperature 98.2 F Pulse Rate 84 84 86 Respiratory 18 19 18 Rate Respiratory Rate [Abdomen] Blood Pressure 89/55 88/56 89/55 O2 Sat by Pulse 100 100 100 Oximetry 03/04/19 03/04/19 03/04/19 21:05 21:11 21:21 Temperature Pulse Rate 83 85 86 Respiratory 18 18 Rate Respiratory Rate [Abdomen] Blood Pressure 88/56 83/55 86/61 O2 Sat by Pulse 100 100 100 Oximetry 03/04/19 03/04/19 03/04/19 21:30 21:31 21:41 Temperature 98.2 F 98.2 F Pulse Rate 86 83 87 Respiratory 18 18 18 Rate Respiratory Rate [Abdomen] Blood Pressure 89/57 86/54 88/56 O2 Sat by Pulse 100 99 99 Oximetry 03/04/19 03/04/19 03/04/19 21:51 22:00 22:11 Temperature Pulse Rate 87 88 89 Respiratory 18 18 18 Rate Respiratory 18 Rate [Abdomen] Blood Pressure 94/60 87/59 89/57 O2 Sat by Pulse 99 99 100 Oximetry 03/04/19 03/04/19 03/04/19 22:21 22:30 22:41 Temperature Pulse Rate 88 87 88 Respiratory 18 18 18 Rate Respiratory Rate [Abdomen] Blood Pressure 90/58 85/57 85/57 O2 Sat by Pulse 99 99 99 Oximetry 03/04/19 03/04/19 03/04/19 22:51 23:00 23:07 Temperature Pulse Rate 88 88 Respiratory 18 18 18 Rate Respiratory Rate [Abdomen] Blood Pressure 88/55 94/57 O2 Sat by Pulse 99 99 Oximetry 03/04/19 03/04/19 03/04/19 23:11 23:21 23:30 Temperature Pulse Rate 87 86 85 Respiratory 18 18 18 Rate Respiratory Rate [Abdomen] Blood Pressure 94/57 87/55 87/55 O2 Sat by Pulse 99 99 99 Oximetry 03/04/19 03/04/19 03/04/19 23:41 23:42 23:51 Temperature Pulse Rate 84 84 84 Respiratory 18 18 18 Rate Respiratory Rate [Abdomen] Blood Pressure 87/55 87/55 86/55 O2 Sat by Pulse 99 99 99 Oximetry 03/05/19 03/05/19 03/05/19 00:00 00:07 00:09 Temperature 98.6 F 98.6 F Pulse Rate 82 82 82 Respiratory 14 18 18 Rate Respiratory Rate [Abdomen] Blood Pressure 86/54 87/55 88/55 O2 Sat by Pulse 100 99 Oximetry 03/05/19 03/05/19 03/05/19 00:11 00:21 00:24 Temperature 98.6 F Pulse Rate 82 82 81 Respiratory 18 18 14 Rate Respiratory Rate [Abdomen] Blood Pressure 87/55 88/55 91/59 O2 Sat by Pulse 99 99 100 Oximetry 03/05/19 03/05/19 03/05/19 00:30 00:41 00:51 Temperature Pulse Rate 83 80 81 Respiratory 18 18 18 Rate Respiratory Rate [Abdomen] Blood Pressure 90/57 88/55 88/57 O2 Sat by Pulse 99 99 99 Oximetry 03/05/19 03/05/19 03/05/19 00:54 01:00 01:11 Temperature 98.6 F Pulse Rate 81 80 80 Respiratory 14 18 18 Rate Respiratory Rate [Abdomen] Blood Pressure 90/57 93/59 93/59 O2 Sat by Pulse 100 99 99 Oximetry 03/05/19 03/05/19 03/05/19 01:21 01:24 01:30 Temperature 98.6 F Pulse Rate 81 81 81 Respiratory 18 14 18 Rate Respiratory Rate [Abdomen] Blood Pressure 90/58 88/57 91/59 O2 Sat by Pulse 100 100 99 Oximetry 03/05/19 03/05/19 03/05/19 01:41 01:51 01:54 Temperature 98.6 F Pulse Rate 81 81 81 Respiratory 18 18 14 Rate Respiratory Rate [Abdomen] Blood Pressure 90/58 89/62 80/62 O2 Sat by Pulse 99 99 100 Oximetry 03/05/19 03/05/19 03/05/19 01:57 02:00 02:11 Temperature Pulse Rate 82 96 H Respiratory 14 16 14 Rate Respiratory 18 Rate [Abdomen] Blood Pressure 89/56 91/59 O2 Sat by Pulse 100 99 98 Oximetry 03/05/19 03/05/19 03/05/19 02:20 02:24 02:31 Temperature 98.6 F Pulse Rate 98 H 81 101 H Respiratory 20 14 13 Rate Respiratory Rate [Abdomen] Blood Pressure 83/62 85/48 87/54 O2 Sat by Pulse 98 100 99 Oximetry 03/05/19 03/05/19 03/05/19 02:37 02:38 02:41 Temperature 98.6 F 98.6 F Pulse Rate 81 97 H 106 H Respiratory 14 13 19 Rate Respiratory Rate [Abdomen] Blood Pressure 87/54 104/59 89/56 O2 Sat by Pulse 100 100 98 Oximetry 03/05/19 03/05/19 03/05/19 02:46 02:51 03:00 Temperature 98.6 F Pulse Rate 87 100 H 99 H Respiratory 18 13 11 L Rate Respiratory Rate [Abdomen] Blood Pressure 89/44 103/58 93/53 O2 Sat by Pulse 98 99 99 Oximetry 03/05/19 03/05/19 03/05/19 03:01 03:11 03:15 Temperature 98.6 F Pulse Rate 87 99 H 96 H Respiratory 18 13 Rate Respiratory Rate [Abdomen] Blood Pressure 89/44 93/53 104/59 O2 Sat by Pulse 98 100 100 Oximetry 03/05/19 03/05/19 03/05/19 03:21 03:30 03:31 Temperature 98.6 F Pulse Rate 97 H 96 H 87 Respiratory 13 17 18 Rate Respiratory Rate [Abdomen] Blood Pressure 104/59 108/52 89/44 O2 Sat by Pulse 100 99 98 Oximetry 03/05/19 03/05/19 03/05/19 03:41 03:51 03:57 Temperature Pulse Rate 107 H 97 H 97 H Respiratory 18 14 18 Rate Respiratory Rate [Abdomen] Blood Pressure 108/52 107/56 O2 Sat by Pulse 94 98 100 Oximetry 03/05/19 03/05/19 03/05/19 04:00 04:01 04:11 Temperature 99.2 F 98.6 F Pulse Rate 98 H 87 96 H Respiratory 14 18 17 Rate Respiratory Rate [Abdomen] Blood Pressure 105/56 89/44 105/56 O2 Sat by Pulse 98 98 96 Oximetry 03/05/19 03/05/19 03/05/19 04:21 04:30 04:41 Temperature Pulse Rate 96 H 95 H 99 H Respiratory 13 18 15 Rate Respiratory Rate [Abdomen] Blood Pressure 95/53 98/51 98/51 O2 Sat by Pulse 98 99 100 Oximetry 03/05/19 03/05/19 03/05/19 04:51 04:53 05:00 Temperature Pulse Rate 95 H 97 H 93 H Respiratory 12 18 18 Rate Respiratory Rate [Abdomen] Blood Pressure 98/51 96/51 O2 Sat by Pulse 97 100 98 Oximetry 03/05/19 03/05/19 03/05/19 05:11 05:21 05:30 Temperature Pulse Rate 93 H 93 H 91 H Respiratory 17 14 17 Rate Respiratory Rate [Abdomen] Blood Pressure 96/51 98/57 94/52 O2 Sat by Pulse 98 98 98 Oximetry 03/05/19 03/05/19 03/05/19 05:32 05:41 05:51 Temperature Pulse Rate 88 88 Respiratory 18 18 18 Rate Respiratory Rate [Abdomen] Blood Pressure 94/52 83/47 O2 Sat by Pulse 100 98 97 Oximetry 03/05/19 03/05/19 03/05/19 06:00 06:11 06:21 Temperature Pulse Rate 87 87 87 Respiratory 18 18 18 Rate Respiratory Rate [Abdomen] Blood Pressure 85/44 85/44 89/44 O2 Sat by Pulse 97 97 98 Oximetry CBC and BMP: 03/11/19 09:09 03/11/19 09:09 ABG, PT/INR, D-dimer: ABG POC ABG pH 7.340 (7.35-7.45) L 03/05/19 04:42 POC ABG pCO2 35.9 (35-45) 03/05/19 04:42 POC ABG pO2 86 (80-105) 03/05/19 04:42 POC ABG HCO3 19.4 (22-26 mml/L) 03/05/19 04:42 POC ABG Total CO2 20 (23-27mmol/L) 03/05/19 04:42 POC ABG O2 Sat 96 03/05/19 04:42 PT/INR, D-dimer PT 17.8 Sec. (12.2-14.9) H 03/04/19 10:10 INR 1.37 (0.87-1.13) H 03/04/19 10:10 Abnormal lab findings: Abnormal Labs 03/04/19 03/04/19 03/04/19 00:43 00:43 03:29 RBC 3.25 L Hgb 9.4 L Hct 27.4 L MCHC RDW 15.3 H Plt Count 83 L Lymph % (Auto) 38.0 H [place] % (Auto) 10.0 H PT INR POC ABG pH POC ABG pCO2 POC ABG pO2 Chloride Carbon Dioxide BUN 29 H Creatinine 0.5 L Glucose 327 H POC Glucose Lactic Acid 2.50 H* Calcium Total Bilirubin 1.40 H Alkaline Phosphatase 136 H Total Protein 5.3 L Albumin 2.9 L Ur Specific [place] Urine WBC (Auto) Crossmatch 03/04/19 03/04/19 03/04/19 06:06 08:21 10:10 RBC Hgb 7.7 L 7.2 L Hct 22.3 L 21.5 L MCHC RDW Plt Count Lymph % (Auto) [place] % (Auto) PT INR POC ABG pH POC ABG pCO2 POC ABG pO2 Chloride Carbon Dioxide BUN Creatinine Glucose POC Glucose 320 H Lactic Acid Calcium Total Bilirubin Alkaline Phosphatase Total Protein Albumin Ur Specific [place] Urine WBC (Auto) Crossmatch 03/04/19 03/04/19 03/04/19 10:10 10:10 12:44 RBC Hgb Hct MCHC RDW Plt Count Lymph % (Auto) [place] % (Auto) PT 17.8 H INR 1.37 H POC ABG pH POC ABG pCO2 POC ABG pO2 Chloride Carbon Dioxide BUN Creatinine Glucose POC Glucose Lactic Acid Calcium Total Bilirubin Alkaline Phosphatase Total Protein Albumin Ur Specific [place] 1.043 H Urine WBC (Auto) 12.0 H Crossmatch See Detail 03/04/19 03/04/19 03/04/19 13:07 13:59 16:44 RBC Hgb 8.0 L Hct 23.7 L MCHC RDW Plt Count Lymph % (Auto) [place] % (Auto) PT INR POC ABG pH POC ABG pCO2 POC ABG pO2 Chloride Carbon Dioxide BUN Creatinine Glucose POC Glucose 306 H 257 H Lactic Acid Calcium Total Bilirubin Alkaline Phosphatase Total Protein Albumin Ur Specific [place] Urine WBC (Auto) Crossmatch 03/04/19 03/04/19 03/04/19 16:46 18:51 21:22 RBC Hgb Hct MCHC RDW Plt Count Lymph % (Auto) [place] % (Auto) PT INR POC ABG pH 7.281 L POC ABG pCO2 47.1 H POC ABG pO2 367 H Chloride Carbon Dioxide BUN Creatinine Glucose POC Glucose 183 H 175 H Lactic Acid Calcium Total Bilirubin Alkaline Phosphatase Total Protein Albumin Ur Specific [place] Urine WBC (Auto) Crossmatch 03/05/19 03/05/19 03/05/19 02:15 04:42 04:49 RBC 3.15 L Hgb 9.6 L Hct 27.5 L MCHC 35 H RDW 16.4 H Plt Count 47 L Lymph % (Auto) [place] % (Auto) 9.4 H PT INR POC ABG pH 7.340 L POC ABG pCO2 POC ABG pO2 Chloride Carbon Dioxide BUN Creatinine Glucose POC Glucose 179 H Lactic Acid Calcium Total Bilirubin Alkaline Phosphatase Total Protein Albumin Ur Specific [place] Urine WBC (Auto) Crossmatch 03/05/19 03/05/19 04:49 05:41 RBC Hgb Hct MCHC RDW Plt Count Lymph % (Auto) [place] % (Auto) PT INR POC ABG pH POC ABG pCO2 POC ABG pO2 Chloride 113.7 H Carbon Dioxide 20 L BUN 28 H Creatinine 0.7 L Glucose 176 H POC Glucose 209 H Lactic Acid Calcium 7.3 L Total Bilirubin Alkaline Phosphatase Total Protein Albumin Ur Specific [place] Urine WBC (Auto) Crossmatch
[2019-03-05] MEDS: LEVAQUIN 750MG/150ML 750 MG/150 ML BAG IV SCH (10:58)
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
--- NOTE | 2019-03-05 13:22 | Progress Note ---
Assessment and Plan 1. Variceal bleed - s/p banding. Has esophageal and gastric varices, but bled from esophagus. On octreotide drip. - can stop PPI drip and do it q 12hrs - monitor H/H and support as needed. Monitor plt count to keep >50K - if rebleeds, will need to try and arrange for transfer for [facility] if possible 2. Cirrhosis - due to prior hx of EtOH, and possibly fatty liver, based on history. Subjective Date of service: 03/05/19 Interval history: Pt intubated and sedated. No further bleeding noted. Objective - Constitutional Vitals: Vital Signs - 12hr 03/05/19 03/05/19 03/05/19 01:21 01:24 01:30 Temperature 98.6 F Pulse Rate 81 81 81 Respiratory 18 14 18 Rate Respiratory Rate [Abdomen] Blood Pressure 90/58 88/57 91/59 O2 Sat by Pulse 100 100 99 Oximetry 03/05/19 03/05/19 03/05/19 01:41 01:51 01:54 Temperature 98.6 F Pulse Rate 81 81 81 Respiratory 18 18 14 Rate Respiratory Rate [Abdomen] Blood Pressure 90/58 89/62 80/62 O2 Sat by Pulse 99 99 100 Oximetry 03/05/19 03/05/19 03/05/19 01:57 02:00 02:11 Temperature Pulse Rate 82 96 H Respiratory 14 16 14 Rate Respiratory 18 Rate [Abdomen] Blood Pressure 89/56 91/59 O2 Sat by Pulse 100 99 98 Oximetry 03/05/19 03/05/19 03/05/19 02:20 02:24 02:31 Temperature 98.6 F Pulse Rate 98 H 81 101 H Respiratory 20 14 13 Rate Respiratory Rate [Abdomen] Blood Pressure 83/62 85/48 87/54 O2 Sat by Pulse 98 100 99 Oximetry 03/05/19 03/05/19 03/05/19 02:37 02:38 02:41 Temperature 98.6 F 98.6 F Pulse Rate 81 97 H 106 H Respiratory 14 13 19 Rate Respiratory Rate [Abdomen] Blood Pressure 87/54 104/59 89/56 O2 Sat by Pulse 100 100 98 Oximetry 03/05/19 03/05/19 03/05/19 02:46 02:51 03:00 Temperature 98.6 F Pulse Rate 87 100 H 99 H Respiratory 18 13 11 L Rate Respiratory Rate [Abdomen] Blood Pressure 89/44 103/58 93/53 O2 Sat by Pulse 98 99 99 Oximetry 03/05/19 03/05/19 03/05/19 03:01 03:11 03:15 Temperature 98.6 F Pulse Rate 87 99 H 96 H Respiratory 18 13 Rate Respiratory Rate [Abdomen] Blood Pressure 89/44 93/53 104/59 O2 Sat by Pulse 98 100 100 Oximetry 03/05/19 03/05/19 03/05/19 03:21 03:30 03:31 Temperature 98.6 F Pulse Rate 97 H 96 H 87 Respiratory 13 17 18 Rate Respiratory Rate [Abdomen] Blood Pressure 104/59 108/52 89/44 O2 Sat by Pulse 100 99 98 Oximetry 03/05/19 03/05/19 03/05/19 03:41 03:51 03:57 Temperature Pulse Rate 107 H 97 H 97 H Respiratory 18 14 18 Rate Respiratory Rate [Abdomen] Blood Pressure 108/52 107/56 O2 Sat by Pulse 94 98 100 Oximetry 03/05/19 03/05/19 03/05/19 04:00 04:01 04:11 Temperature 99.2 F 98.6 F Pulse Rate 98 H 87 96 H Respiratory 14 18 17 Rate Respiratory Rate [Abdomen] Blood Pressure 105/56 89/44 105/56 O2 Sat by Pulse 98 98 96 Oximetry 03/05/19 03/05/19 03/05/19 04:21 04:30 04:41 Temperature Pulse Rate 96 H 95 H 99 H Respiratory 13 18 15 Rate Respiratory Rate [Abdomen] Blood Pressure 95/53 98/51 98/51 O2 Sat by Pulse 98 99 100 Oximetry 03/05/19 03/05/19 03/05/19 04:51 04:53 05:00 Temperature Pulse Rate 95 H 97 H 93 H Respiratory 12 18 18 Rate Respiratory Rate [Abdomen] Blood Pressure 98/51 96/51 O2 Sat by Pulse 97 100 98 Oximetry 03/05/19 03/05/19 03/05/19 05:11 05:21 05:30 Temperature Pulse Rate 93 H 93 H 91 H Respiratory 17 14 17 Rate Respiratory Rate [Abdomen] Blood Pressure 96/51 98/57 94/52 O2 Sat by Pulse 98 98 98 Oximetry 03/05/19 03/05/19 03/05/19 05:32 05:41 05:51 Temperature Pulse Rate 88 88 Respiratory 18 18 18 Rate Respiratory Rate [Abdomen] Blood Pressure 94/52 83/47 O2 Sat by Pulse 100 98 97 Oximetry 03/05/19 03/05/19 03/05/19 06:00 06:11 06:21 Temperature Pulse Rate 87 87 87 Respiratory 18 18 18 Rate Respiratory Rate [Abdomen] Blood Pressure 85/44 85/44 89/44 O2 Sat by Pulse 97 97 98 Oximetry 03/05/19 03/05/19 03/05/19 06:30 06:41 06:51 Temperature Pulse Rate 86 86 85 Respiratory 18 18 18 Rate Respiratory Rate [Abdomen] Blood Pressure 89/44 89/44 88/45 O2 Sat by Pulse 98 98 98 Oximetry 03/05/19 03/05/19 03/05/19 07:00 07:11 07:21 Temperature Pulse Rate 85 85 85 Respiratory 18 18 17 Rate Respiratory Rate [Abdomen] Blood Pressure 89/48 89/48 93/49 O2 Sat by Pulse 99 99 99 Oximetry 03/05/19 03/05/19 03/05/19 07:30 07:41 07:51 Temperature Pulse Rate 85 85 85 Respiratory 18 18 17 Rate Respiratory Rate [Abdomen] Blood Pressure 92/49 92/49 95/47 O2 Sat by Pulse 98 98 98 Oximetry 03/05/19 03/05/19 08:00 08:50 Temperature 99.0 F Pulse Rate 86 84 Respiratory 18 Rate Respiratory Rate [Abdomen] Blood Pressure 97/49 91/46 O2 Sat by Pulse 98 99 Oximetry General appearance: Present: other (Intubated, sedated) - Respiratory Respiratory: bilateral: CTA (anteriorly) - Cardiovascular Rhythm: regular Heart Sounds: Present: S1 & S2 - Gastrointestinal General gastrointestinal: Present: soft, non-tender - Labs CBC & Chem 7: 03/05/19 04:49 03/05/19 04:49 Labs: Abnormal lab results 03/04/19 03/04/19 03/04/19 Range/Units 10:10 13:59 16:44 RBC (3.65-5.03) M/mm3 Hgb 8.0 L (11.8-15.2) gm/dl Hct 23.7 L (35.5-45.6) % MCHC (32-34) % RDW (13.2-15.2) % Plt Count (140-440) K/mm3 [place] % (Auto) (0.0-7.3) % POC ABG pH (7.35-7.45) POC ABG pCO2 (35-45) POC ABG pO2 (80-105) Chloride (98-107) mmol/L Carbon Dioxide (22-30) mmol/L BUN (9-20) mg/dL Creatinine (0.8-1.5) mg/dL Glucose (75-100) mg/dL POC Glucose 257 H (70-105) Calcium (8.4-10.2) mg/dL Crossmatch See Detail 03/04/19 03/04/19 03/04/19 Range/Units 16:46 18:51 21:22 RBC (3.65-5.03) M/mm3 Hgb (11.8-15.2) gm/dl Hct (35.5-45.6) % MCHC (32-34) % RDW (13.2-15.2) % Plt Count (140-440) K/mm3 [place] % (Auto) (0.0-7.3) % POC ABG pH 7.281 L (7.35-7.45) POC ABG pCO2 47.1 H (35-45) POC ABG pO2 367 H (80-105) Chloride (98-107) mmol/L Carbon Dioxide (22-30) mmol/L BUN (9-20) mg/dL Creatinine (0.8-1.5) mg/dL Glucose (75-100) mg/dL POC Glucose 183 H 175 H (70-105) Calcium (8.4-10.2) mg/dL Crossmatch 03/05/19 03/05/19 03/05/19 Range/Units 02:15 04:42 04:49 RBC 3.15 L (3.65-5.03) M/mm3 Hgb 9.6 L (11.8-15.2) gm/dl Hct 27.5 L (35.5-45.6) % MCHC 35 H (32-34) % RDW 16.4 H (13.2-15.2) % Plt Count 47 L (140-440) K/mm3 [place] % (Auto) 9.4 H (0.0-7.3) % POC ABG pH 7.340 L (7.35-7.45) POC ABG pCO2 (35-45) POC ABG pO2 (80-105) Chloride (98-107) mmol/L Carbon Dioxide (22-30) mmol/L BUN (9-20) mg/dL Creatinine (0.8-1.5) mg/dL Glucose (75-100) mg/dL POC Glucose 179 H (70-105) Calcium (8.4-10.2) mg/dL Crossmatch 03/05/19 03/05/19 03/05/19 Range/Units 04:49 05:41 11:57 RBC (3.65-5.03) M/mm3 Hgb (11.8-15.2) gm/dl Hct (35.5-45.6) % MCHC (32-34) % RDW (13.2-15.2) % Plt Count (140-440) K/mm3 [place] % (Auto) (0.0-7.3) % POC ABG pH (7.35-7.45) POC ABG pCO2 (35-45) POC ABG pO2 (80-105) Chloride 113.7 H (98-107) mmol/L Carbon Dioxide 20 L (22-30) mmol/L BUN 28 H (9-20) mg/dL Creatinine 0.7 L (0.8-1.5) mg/dL Glucose 176 H (75-100) mg/dL POC Glucose 209 H 193 H (70-105) Calcium 7.3 L (8.4-10.2) mg/dL Crossmatch Medications & Allergies - Medications Allergies/Adverse Reactions: Allergies No Known Allergies Allergy (Unverified 03/04/19 00:39) Active Medications: Generic Name Dose Route Start Last Admin Trade Name Freq PRN Reason Stop Dose Admin Dextrose 50 ml 03/04/19 05:54 D50w (25gm) Syringe IV PRN PRN Hypoglycemia Fentanyl 50 mcg 03/04/19 15:49 Sublimaze IV Q10MIN PRN ANALGESIA Hydrophilic Ointment 1 applic 03/04/19 15:49 Vaseline Lip Therapy TP Q2HR PRN Dry Lips Octreotide Acetate 500 mcg/ 101 mls @ 5.05 mls/hr 03/04/19 06:00 03/05/19 03:56 Sodium Chloride IV 25 mcg/hr TITR HENRY 5.05 mls/hr Administration Protocol 25 MCG/HR Levofloxacin/Dextrose 750 mg in 150 mls @ 100 mls/hr 03/05/19 10:00 03/05/19 10:58 Levaquin 750mg/150ml IV 100 mls/hr Q24HR HENRY Administration Protocol Metronidazole 500 mg in 100 mls @ 100 mls/hr 03/04/19 14:00 03/05/19 05:48 Flagyl 500 Mg/100 Ml IV 100 mls/hr Q8HR HENRY Administration Protocol Sodium Chloride 1,000 mls @ 50 mls/hr 03/04/19 13:00 03/04/19 13:05 Nacl 0.9% 1000 Ml IV 50 mls/hr DIRECT HENRY Administration Fentanyl Citrate 2,000 mcg in 100 mls @ 4.717 mls/hr 03/04/19 16:00 03/05/19 10:57 Fentanyl Drip Premix IV 3 mcg/kg/hr TITR HENRY 14.152 mls/hr Administration Protocol 1 MCG/KG/HR Propofol 1,000 mg in 100 mls @ 2.83 mls/hr 03/04/19 17:00 03/05/19 10:57 Diprivan 10 Mg/Ml IV 20 mcg/kg/min TITR HENRY 11.322 mls/hr Administration Protocol 5 MCG/KG/MIN Norepinephrine 4 mg in 250 mls @ 7.5 mls/hr 03/04/19 19:00 Levophed Drip 4 Mg/Ns 250 Ml IV TITR HENRY Protocol 2 MCG/MIN Vasopressin 20 unit/ Sodium 101 mls @ 12.12 mls/hr 03/04/19 19:00 Chloride IV TITR HENRY Protocol 0.04 UNITS/MIN Sodium Chloride 1,000 mls @ 150 mls/hr 03/04/19 22:00 Nacl 0.9% 1000 Ml IV DIRECT HENRY Insulin Human Regular 0 units 03/04/19 12:00 03/05/19 05:47 Humulin R SUB-Q 3 units Q6HR HENRY Administration Protocol Multi-Ingred Cream/Lotion/Oil/Oint 1 applic 03/04/19 15:49 Artificial Tears Ophth Oint OU Q4HR PRN Dry Eye(s) Ondansetron HCl 4 mg 03/04/19 05:48 Zofran IV Q8H PRN Nausea And Vomiting Pantoprazole Sodium 40 mg 03/05/19 16:00 Protonix IV BID HENRY Sodium Chloride 10 ml 03/04/19 10:00 03/04/19 22:13 Sodium Chloride Flush Syringe 10 Ml IV 10 ml BID HENRY Administration Sodium Chloride 10 ml 03/04/19 05:48 Sodium Chloride Flush Syringe 10 Ml IV PRN PRN LINE FLUSH
[2019-03-05 16:19] LABS: INR 1.37 (0.87-1.13)
[2019-03-05] MEDS: PROTONIX IV SCH ×2 (18:25→22:47)
[2019-03-05] MEDS: SODIUM CHLORIDE FLUSH SYRINGE 10 ML IV SCH (22:47)
[2019-03-06] MEDS: DIPRIVAN 10 MG/ML 1,000 MG/100 ML BOTTLE IV SCH ×4 (00:26→20:05)
[2019-03-06] MEDS: HumuLIN R SUB-Q SCH ×2 (00:28→06:27)
[2019-03-06] MEDS: SandoSTATIN 500 MCG in NACL 0.9% 100 ML IV SCH ×2 (01:59→23:06)
--- NOTE | 2019-03-06 03:32 | Progress Note ---
Assessment and Plan -Acute hypoxemic respiratory failure on MVS -Hypovolemic shock. -GI bleed. -Enterocolitis. -Cirrhosis -Coagulopathy -Diabetes mellitus type II. -Active esophageal variceal bleed, and gastric varices GI completed EGD with findings 1. Distal esophageal varices, one with fibrin plug near Z-line, which subseque ntly actively bled. Total of 7 bands placed, 3 of which dislodged, possibly with retching. 2. Gastric varices. -Continue with MVS support -VAP bundle addressed -Vasopressor support keep MAP>65 -Continue bronchodilators with pulmonary hygiene per RT - On Octreotide and pantoprazole -Supportive transfusions as indicated, keep Hgb>7g/dL -Aspiration precautions with HOB >40 -VTE prophylaxis( SCDs for now, in view of thrombocytopenia and GIB) - Supplemental oxygen as needed to keep O2 sat's > 90% -Lung protective strategies - CXR and ABG in am -Accuchecks with glycemic control per SSI for target blood glucose <180mg/dL - Titrate sedation to RASS 0 to -1 - Prevention of delirium, maintenance of sleep-wake cycle - Avoid nephrotoxic agents, adjust all antibiotics and medications for CrCL and GFR -Empiric antibiotics for enterocolitis, de-escalate and monitor clinically -Aspiration precautions -If no enteral feeding int eh next 72 hours will need to address alternate sources of nutrition _Substance abuse counselling once he is liberated from MVS and is able to actively participate in the discussions -Discussed with ICU team during ICU-IDT rounds CONDITION: CRITICAL PROGNOSIS: GUARDED CODE STATUS: FULL CODE The high probability of a clinically significant, sudden or life threatening deterioration of the [Respiratory, hemodynamic and GI] system(s) required my full and direct attention, intervention and personal management. The aggregate critical care time was [31] minutes. This time is in addition to time spent performing reported procedures but includes the following: [x] Data Review and interpretation [x] Patient assessment and monitoring of vital signs [x] Documentation [x] Medication orders and management Subjective Date of service: 03/06/19 Interval history: Patient is seen today for: Acute GI bleed; Esophageal varices s/p banding; Acute hypoxemic respiratory failure on MVS; Hemorrhagic Shock; liver cirrhosis; Acute blood loss anemia; Abdominal pain; Obesity; Diabetes; Thrombocytopenia; Lactic acidosis; Acute kidney injury. Seen and examined at bedside; 24hour events reviewed; vitals, labs, medications, chart reviewed; nursing and respiratory care staff consulted; no adverse overnight events reported to me; resting peacefully in bed; on mechanical ventilatory support, remains agitated requiring ; remains on CIWA protocol; no recurrent GI bleeding and H&H remains stable Objective Vital Signs - 12hr 03/05/19 03/05/19 03/05/19 15:40 15:50 16:00 Temperature 99.3 F Pulse Rate 87 88 88 Pulse Rate [ From Monitor] Pulse Rate [ Right Radial] Respiratory 17 18 18 Rate Blood Pressure 105/61 107/60 103/63 O2 Sat by Pulse 95 95 96 Oximetry 03/05/19 03/05/19 03/05/19 16:10 16:20 16:30 Temperature Pulse Rate 88 88 88 Pulse Rate [ From Monitor] Pulse Rate [ Right Radial] Respiratory 17 18 18 Rate Blood Pressure 107/60 101/61 108/63 O2 Sat by Pulse 95 95 96 Oximetry 03/05/19 03/05/19 03/05/19 16:38 16:40 16:50 Temperature Pulse Rate 80 88 89 Pulse Rate [ From Monitor] Pulse Rate [ Right Radial] Respiratory 17 18 Rate Blood Pressure 101/61 108/63 108/55 O2 Sat by Pulse 95 96 95 Oximetry 03/05/19 03/05/19 03/05/19 17:00 17:10 17:20 Temperature Pulse Rate 89 89 89 Pulse Rate [ From Monitor] Pulse Rate [ 89 Right Radial] Respiratory 18 18 19 Rate Blood Pressure 109/59 109/59 103/62 O2 Sat by Pulse 95 96 95 Oximetry 03/05/19 03/05/19 03/05/19 17:30 17:40 17:50 Temperature Pulse Rate 90 90 89 Pulse Rate [ From Monitor] Pulse Rate [ Right Radial] Respiratory 18 18 18 Rate Blood Pressure 102/65 102/65 106/61 O2 Sat by Pulse 95 95 95 Oximetry 03/05/19 03/05/19 03/05/19 18:00 18:10 18:20 Temperature Pulse Rate 90 91 H 91 H Pulse Rate [ From Monitor] Pulse Rate [ Right Radial] Respiratory 19 18 18 Rate Blood Pressure 105/60 105/60 97/63 O2 Sat by Pulse 95 96 95 Oximetry 03/05/19 03/05/19 03/05/19 18:30 18:40 19:00 Temperature Pulse Rate 91 H 92 H 92 H Pulse Rate [ From Monitor] Pulse Rate [ Right Radial] Respiratory 19 18 18 Rate Blood Pressure 107/58 107/58 108/56 O2 Sat by Pulse 95 95 95 Oximetry 03/05/19 03/05/19 03/05/19 19:49 20:00 20:10 Temperature 99.5 F Pulse Rate 94 H 94 H 94 H Pulse Rate [ 93 H From Monitor] Pulse Rate [ Right Radial] Respiratory 18 18 18 Rate Blood Pressure 102/59 109/60 109/60 O2 Sat by Pulse 92 95 93 Oximetry 03/05/19 03/05/19 03/05/19 21:00 21:32 22:00 Temperature Pulse Rate 97 H 98 H 95 H Pulse Rate [ From Monitor] Pulse Rate [ Right Radial] Respiratory 18 18 Rate Blood Pressure 106/67 112/65 109/56 O2 Sat by Pulse 95 95 95 Oximetry 03/05/19 03/06/19 03/06/19 23:00 00:00 00:25 Temperature 98.5 F Pulse Rate 93 H 97 H 93 H Pulse Rate [ 95 H From Monitor] Pulse Rate [ Right Radial] Respiratory 18 14 Rate Blood Pressure 100/58 99/50 97/54 O2 Sat by Pulse 96 92 95 Oximetry 03/06/19 03/06/19 03/06/19 01:00 02:00 03:00 Temperature Pulse Rate 94 H 93 H 88 Pulse Rate [ From Monitor] Pulse Rate [ Right Radial] Respiratory 18 18 18 Rate Blood Pressure 96/56 101/58 96/51 O2 Sat by Pulse 95 96 96 Oximetry General appearance: Present: other (Intubated, sedated) - EENT Eyes: Present: PERRL, EOM intact ENT: Orally intubated, ETT at 23cm , size 7.5 No patient-ventilator dys-synchrony - Neck Neck: Present: supple, normal ROM - Respiratory Respiratory effort: normal Respiratory: bilateral: Decreased AE bilaterally with occasional rhonchi - Cardiovascular Rhythm: regular Heart Sounds: Present: S1 & S2. Absent: gallop, rub - Extremities Extremities: no ischemia, No edema, Full ROM - Abdominal General gastrointestinal: soft, non-tender, non-distended, hypoactive bowel sounds - Integumentary Integumentary: Present: clear, warm, dry - Neurologic Neurologic: Sedated CBC and BMP: 03/11/19 09:09 03/11/19 09:09 ABG, PT/INR, D-dimer: ABG POC ABG pH 7.340 (7.35-7.45) L 03/05/19 04:42 POC ABG pCO2 35.9 (35-45) 03/05/19 04:42 POC ABG pO2 86 (80-105) 03/05/19 04:42 POC ABG HCO3 19.4 (22-26 mml/L) 03/05/19 04:42 POC ABG Total CO2 20 (23-27mmol/L) 03/05/19 04:42 POC ABG O2 Sat 96 03/05/19 04:42 PT/INR, D-dimer PT 16.5 Sec. (12.2-14.9) H 03/05/19 15:38 INR 1.37 (0.87-1.13) H 03/05/19 15:38 Abnormal lab findings: Abnormal Labs 03/04/19 03/04/19 03/04/19 00:43 00:43 03:29 RBC 3.25 L Hgb 9.4 L Hct 27.4 L MCHC RDW 15.3 H Plt Count 83 L Lymph % (Auto) 38.0 H [place] % (Auto) 10.0 H PT INR POC ABG pH POC ABG pCO2 POC ABG pO2 Chloride Carbon Dioxide BUN 29 H Creatinine 0.5 L Glucose 327 H POC Glucose Lactic Acid 2.50 H* Calcium Total Bilirubin 1.40 H Alkaline Phosphatase 136 H Total Protein 5.3 L Albumin 2.9 L Ur Specific [place] Urine WBC (Auto) Crossmatch 03/04/19 03/04/19 03/04/19 06:06 08:21 10:10 RBC Hgb 7.7 L 7.2 L Hct 22.3 L 21.5 L MCHC RDW Plt Count Lymph % (Auto) [place] % (Auto) PT INR POC ABG pH POC ABG pCO2 POC ABG pO2 Chloride Carbon Dioxide BUN Creatinine Glucose POC Glucose 320 H Lactic Acid Calcium Total Bilirubin Alkaline Phosphatase Total Protein Albumin Ur Specific [place] Urine WBC (Auto) Crossmatch 03/04/19 03/04/19 03/04/19 10:10 10:10 12:44 RBC Hgb Hct MCHC RDW Plt Count Lymph % (Auto) [place] % (Auto) PT 17.8 H INR 1.37 H POC ABG pH POC ABG pCO2 POC ABG pO2 Chloride Carbon Dioxide BUN Creatinine Glucose POC Glucose Lactic Acid Calcium Total Bilirubin Alkaline Phosphatase Total Protein Albumin Ur Specific [place] 1.043 H Urine WBC (Auto) 12.0 H Crossmatch See Detail 03/04/19 03/04/19 03/04/19 13:07 13:59 16:44 RBC Hgb 8.0 L Hct 23.7 L MCHC RDW Plt Count Lymph % (Auto) [place] % (Auto) PT INR POC ABG pH POC ABG pCO2 POC ABG pO2 Chloride Carbon Dioxide BUN Creatinine Glucose POC Glucose 306 H 257 H Lactic Acid Calcium Total Bilirubin Alkaline Phosphatase Total Protein Albumin Ur Specific [place] Urine WBC (Auto) Crossmatch 03/04/19 03/04/19 03/04/19 16:46 18:51 21:22 RBC Hgb Hct MCHC RDW Plt Count Lymph % (Auto) [place] % (Auto) PT INR POC ABG pH 7.281 L POC ABG pCO2 47.1 H POC ABG pO2 367 H Chloride Carbon Dioxide BUN Creatinine Glucose POC Glucose 183 H 175 H Lactic Acid Calcium Total Bilirubin Alkaline Phosphatase Total Protein Albumin Ur Specific [place] Urine WBC (Auto) Crossmatch 03/05/19 03/05/19 03/05/19 02:15 04:42 04:49 RBC 3.15 L Hgb 9.6 L Hct 27.5 L MCHC 35 H RDW 16.4 H Plt Count 47 L Lymph % (Auto) [place] % (Auto) 9.4 H PT INR POC ABG pH 7.340 L POC ABG pCO2 POC ABG pO2 Chloride Carbon Dioxide BUN Creatinine Glucose POC Glucose 179 H Lactic Acid Calcium Total Bilirubin Alkaline Phosphatase Total Protein Albumin Ur Specific [place] Urine WBC (Auto) Crossmatch 03/05/19 03/05/19 03/05/19 04:49 05:41 11:57 RBC Hgb Hct MCHC RDW Plt Count Lymph % (Auto) [place] % (Auto) PT INR POC ABG pH POC ABG pCO2 POC ABG pO2 Chloride 113.7 H Carbon Dioxide 20 L BUN 28 H Creatinine 0.7 L Glucose 176 H POC Glucose 209 H 193 H Lactic Acid Calcium 7.3 L Total Bilirubin Alkaline Phosphatase Total Protein Albumin Ur Specific [place] Urine WBC (Auto) Crossmatch 06/15/19 06/15/19 06/15/19 15:32 15:38 18:21 RBC Hgb Hct MCHC RDW Plt Count Lymph % (Auto) [place] % (Auto) PT 16.5 H INR 1.37 H POC ABG pH POC ABG pCO2 POC ABG pO2 Chloride Carbon Dioxide BUN Creatinine Glucose POC Glucose 175 H 184 H Lactic Acid Calcium Total Bilirubin Alkaline Phosphatase Total Protein Albumin Ur Specific [place] Urine WBC (Auto) Crossmatch 03/05/19 22:06 RBC Hgb Hct MCHC RDW Plt Count Lymph % (Auto) [place] % (Auto) PT INR POC ABG pH POC ABG pCO2 POC ABG pO2 Chloride Carbon Dioxide BUN Creatinine Glucose POC Glucose 186 H Lactic Acid Calcium Total Bilirubin Alkaline Phosphatase Total Protein Albumin Ur Specific [place] Urine WBC (Auto) Crossmatch Chest x-ray: image reviewed (Right upper lobe atelectasis)
[2019-03-06] MEDS: fentaNYL DRIP Premix 2,000 MCG/100 ML BAG IV SCH ×3 (04:33→21:05)
[2019-03-06] MEDS: FLAGYL 500 MG/100 ML 500 MG/100 ML BAG IV SCH ×3 (06:27→21:07)
[2019-03-06] MEDS: NACL 0.9% 1000 ML 1,000 ML IV SCH (06:28)
[2019-03-06 09:20] LABS: Basophils % (Auto) 0.6 % (0.0-1.8); Eosinophils # (Auto) 0.1 K/mm3 (0.0-0.4); Eosinophils % (Auto) 2.3 % (0.0-4.3); Hematocrit 29.4 % (35.5-45.6); Hemoglobin 9.9 gm/dl (11.8-15.2); Lymphocytes # (Auto) 1.3 K/mm3 (1.2-5.4); Lymphocytes % (Auto) 22.1 % (13.4-35.0); Mean Corpuscular HGB Conc 34 % (32-34); Mean Corpuscular Volume 89 fl (84-94); Monocytes # (Auto) 0.9 K/mm3 (0.0-0.8); Monocytes % (Auto) 15.6 % (0.0-7.3); Red Blood Count 3.33 M/mm3 (3.65-5.03); Red Cell Distribution Width 16.8 % (13.2-15.2)
[2019-03-06 09:29] LABS: INR 1.36 (0.87-1.13)
[2019-03-06 09:39] LABS: Alanine Aminotransferase 38 units/L (7-56); Albumin 2.5 g/dL (3.9-5); BUN/Creatinine Ratio 31; Bilirubin,Direct 0.4 mg/dL (0-0.2); Blood Urea Nitrogen 34 mg/dL (9-20); Calcium 7.7 mg/dL (8.4-10.2); Hemolysis Index 10
[2019-03-06] MEDS: MUCOMYST INHALATION INHALATION SCH ×2 (09:42→21:07)
[2019-03-06] MEDS: PROVENTIL IH SCH ×3 (09:42→21:07)
--- NOTE | 2019-03-06 10:05 | XRay Report ---
PROCEDURE: XR CHEST 1V AP TECHNIQUE: Chest radiograph single view. HISTORY: follow up respiratory failure FINDINGS: Single frontal view of the chest was acquired and compared to the prior examination of March 05. The endotracheal tube lies in appropriate position. There is a new right superior hilar infiltrate wh ich could represent pneumonia or atelectasis. There is left basilar consolidation, slightly worse, al so likely atelectasis. The endotracheal tube lies in appropriate position. IMPRESSION: New right upper lobe infiltrate This document is electronically signed by Willis Smith MD., March 06 2019 10:03:22 AM ET
[2019-03-06 10:20] LABS: Platelet Count 70 K/mm3 (140-440)
[2019-03-06] MEDS: LEVAQUIN 750MG/150ML 750 MG/150 ML BAG IV SCH (11:01)
[2019-03-06] MEDS: PROTONIX IV SCH ×2 (11:02→21:07)
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
--- NOTE | 2019-03-06 13:24 | Gastroenterology Progress Note ---
Assessment and Plan Variceal bleed s/p banding, complete 72 hours of octreotide drip then may stop; continue antibiotics for 7 days for SBP prophylaxis. Very reassuring that patient's hgb is stable Cirrhosis - due to prior hx of EtOH, and possibly fatty liver, based on history. Will continue to support as above, patient will need to follow up closely as an outpatient - Patient Problems (1) Hyperglycemia Current Visit: Yes Status: Acute (2) Sepsis Current Visit: Yes Status: Acute Qualifiers: Sepsis type: sepsis due to unspecified organism Qualified Code(s): A41.9 - Sepsis, unspecified organism (3) Esophageal varices with bleeding Current Visit: Yes Status: Acute (4) Gastric varices without bleeding Current Visit: Yes Status: Acute (5) Alcoholic cirrhosis of liver without ascites Current Visit: Yes Status: Acute Subjective Date of service: 03/06/19 Principal diagnosis: Cirrhosis, GI bleed Interval history: Patient remains intubated, no active bleeding currently Objective - Constitutional Vitals: Temp Pulse Resp BP Pulse Ox 99.7 F H 81 18 91/47 98 03/06/19 04:00 03/06/19 12:00 03/06/19 12:00 03/06/19 12:00 03/06/19 12:00 General appearance: other (intubated) - Gastrointestinal General gastrointestinal: Present: soft - Labs CBC & Chem 7: 03/06/19 09:08 03/06/19 09:08 Labs: Laboratory Results - last 24 hr 03/04/19 03/05/19 03/05/19 10:10 15:32 15:38 WBC RBC Hgb Hct MCV MCH MCHC RDW Plt Count Lymph % (Auto) [place] % (Auto) Eos % (Auto) Baso % (Auto) Lymph # [place] # Eos # Baso # Seg Neutrophils % Seg Neutrophils # PT 16.5 H INR 1.37 H POC ABG pH POC ABG pCO2 POC ABG pO2 POC ABG HCO3 POC ABG Total CO2 POC ABG O2 Sat POC ABG Base Excess FiO2 Sodium Potassium Chloride Carbon Dioxide Anion Gap BUN Creatinine Estimated GFR BUN/Creatinine Ratio Glucose POC Glucose 175 H Calcium Total Bilirubin Direct Bilirubin Indirect Bilirubin AST ALT Alkaline Phosphatase Total Protein Albumin Albumin/Globulin Ratio Blood Type A POSITIVE Antibody Screen Negative Crossmatch See Detail 03/05/19 03/05/19 03/06/19 18:21 22:06 02:18 WBC RBC Hgb Hct MCV MCH MCHC RDW Plt Count Lymph % (Auto) [place] % (Auto) Eos % (Auto) Baso % (Auto) Lymph # [place] # Eos # Baso # Seg Neutrophils % Seg Neutrophils # PT INR POC ABG pH POC ABG pCO2 POC ABG pO2 POC ABG HCO3 POC ABG Total CO2 POC ABG O2 Sat POC ABG Base Excess FiO2 Sodium Potassium Chloride Carbon Dioxide Anion Gap BUN Creatinine Estimated GFR BUN/Creatinine Ratio Glucose POC Glucose 184 H 186 H 184 H Calcium Total Bilirubin Direct Bilirubin Indirect Bilirubin AST ALT Alkaline Phosphatase Total Protein Albumin Albumin/Globulin Ratio Blood Type Antibody Screen Crossmatch 03/06/19 03/06/19 03/06/19 04:45 05:59 09:08 WBC 5.9 RBC 3.33 L Hgb 9.9 L Hct 29.4 L MCV 89 MCH 30 MCHC 34 RDW 16.8 H Plt Count 70 L Lymph % (Auto) 22.1 [place] % (Auto) 15.6 H Eos % (Auto) 2.3 Baso % (Auto) 0.6 Lymph # 1.3 [place] # 0.9 H Eos # 0.1 Baso # 0.0 Seg Neutrophils % 59.4 Seg Neutrophils # 3.5 PT INR POC ABG pH 7.285 L POC ABG pCO2 43.0 POC ABG pO2 74 L POC ABG HCO3 20.4 POC ABG Total CO2 22 POC ABG O2 Sat 93 POC ABG Base Excess -6 FiO2 40 Sodium Potassium Chloride Carbon Dioxide Anion Gap BUN Creatinine Estimated GFR BUN/Creatinine Ratio Glucose POC Glucose 173 H Calcium Total Bilirubin Direct Bilirubin Indirect Bilirubin AST ALT Alkaline Phosphatase Total Protein Albumin Albumin/Globulin Ratio Blood Type Antibody Screen Crossmatch 03/06/19 03/06/19 03/06/19 09:08 09:08 09:25 WBC RBC Hgb Hct MCV MCH MCHC RDW Plt Count Lymph % (Auto) [place] % (Auto) Eos % (Auto) Baso % (Auto) Lymph # [place] # Eos # Baso # Seg Neutrophils % Seg Neutrophils # PT 16.4 H INR 1.36 H POC ABG pH POC ABG pCO2 POC ABG pO2 POC ABG HCO3 POC ABG Total CO2 POC ABG O2 Sat POC ABG Base Excess FiO2 Sodium 143 Potassium 3.8 Chloride 112.2 H Carbon Dioxide 23 Anion Gap 12 BUN 34 H Creatinine 1.1 D Estimated GFR > 60 BUN/Creatinine Ratio 31 Glucose 156 H POC Glucose 177 H Calcium 7.7 L Total Bilirubin 0.90 Direct Bilirubin 0.4 H Indirect Bilirubin 0.5 AST 64 H ALT 38 Alkaline Phosphatase 107 Total Protein 5.0 L Albumin 2.5 L Albumin/Globulin Ratio 1.0 Blood Type Antibody Screen Crossmatch
[2019-03-06] MEDS: SODIUM CHLORIDE FLUSH SYRINGE 10 ML IV SCH (21:27)
[2019-03-07] MEDS: HumuLIN R SUB-Q SCH ×4 (00:23→19:32)
[2019-03-07] MEDS: NACL 0.9% 1000 ML 1,000 ML IV SCH (00:57)
[2019-03-07] MEDS: DIPRIVAN 10 MG/ML 1,000 MG/100 ML BOTTLE IV SCH (03:21)
--- NOTE | 2019-03-07 04:01 | XRay Report ---
PROCEDURE: XR CHEST 1V AP TECHNIQUE: Chest radiograph single view. HISTORY: follow up respiratory failure COMPARISONS: 03/06/2019 . FINDINGS: Endotracheal tube terminates approximately 4 cm from the linda. No mediastinal shift. Cardiac silhou ette is not enlarged. No pneumothorax. Linear perihilar opacities. Improved aeration of the right upp er lung. IMPRESSION: Satisfactory appearance of patient's endotracheal tube without pneumothorax. Aeration of the right up per lung is improved compared to 03/06/2019. This document is electronically signed by Daryl Roth MD., March 07 2019 03:59:14 AM ET
[2019-03-07] MEDS: FLAGYL 500 MG/100 ML 500 MG/100 ML BAG IV SCH ×3 (05:31→21:11)
[2019-03-07] MEDS: MUCOMYST INHALATION INHALATION SCH ×2 (08:00→22:34)
[2019-03-07] MEDS: PROVENTIL IH SCH ×3 (08:00→22:34)
[2019-03-07] MEDS: PROTONIX IV SCH ×2 (09:41→21:11)
[2019-03-07] MEDS: LEVAQUIN 750MG/150ML 750 MG/150 ML BAG IV SCH (09:41)
[2019-03-07] MEDS: SODIUM CHLORIDE FLUSH SYRINGE 10 ML IV SCH ×3 (09:42→21:13)
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
--- NOTE | 2019-03-07 14:40 | Gastroenterology Progress Note ---
<ARI VILLAR - Last Filed: 03/07/19 14:48> Assessment and Plan 1.GI bleed/melena 2.H/O cirrhosis and varices (s/p banding last year) -H/H 9.9/29.4-stable -continue to monitor H/H and transfuse as needed -s/p EGD with banding 2/2 variceal bleed (Has esophageal and gastric varices, but bled from esophagus) -complete 72 hours of octreotide drip then may stop -continue antibiotics for SBP prophylaxis x total of 7 days -continue PPI -cirrhosis-2/2 ETOH and possibly fatty liver -continue supportive care -will need to follow up closely as an outpatient -if rebleeds, will need to try and arrange for transfer for [facility] if possible Subjective Date of service: 03/07/19 Principal diagnosis: Cirrhosis, GI bleed Interval history: Patient remains in ICU on HFO2. No active signs of bleeding overnight or this am per nursing. Objective - Constitutional Vitals: Temp Pulse Resp BP Pulse Ox 99.6 F 85 11 L 164/68 97 03/07/19 04:00 03/07/19 14:00 03/07/19 14:00 03/07/19 14:00 03/07/19 12:00 General appearance: no acute distress - Respiratory Respiratory: bilateral: diminished - Cardiovascular Rhythm: regular - Gastrointestinal General gastrointestinal: Present: soft, non-distended, normal bowel sounds - Labs CBC & Chem 7: 03/06/19 09:08 03/06/19 09:08 Labs: Laboratory Results - last 24 hr 03/06/19 03/06/19 03/06/19 13:24 16:42 23:33 POC ABG pH POC ABG pCO2 POC ABG pO2 POC ABG HCO3 POC ABG Total CO2 POC ABG O2 Sat POC ABG Base Excess FiO2 POC Glucose 178 H 175 H 141 H 03/07/19 03/07/19 03/07/19 04:38 06:08 09:37 POC ABG pH 7.347 L 7.309 L POC ABG pCO2 39.6 42.4 POC ABG pO2 89 81 POC ABG HCO3 21.7 21.3 POC ABG Total CO2 23 23 POC ABG O2 Sat 96 95 POC ABG Base Excess -4 -5 FiO2 30 100 POC Glucose 150 H 03/07/19 11:45 POC ABG pH POC ABG pCO2 POC ABG pO2 POC ABG HCO3 POC ABG Total CO2 POC ABG O2 Sat POC ABG Base Excess FiO2 POC Glucose 177 H <JUAN NEWTON - Last Filed: 03/07/19 22:47> Assessment and Plan Patient seen and examined. I have reviewed the advanced practitioner's evaluation, assessment, and plan, and agree with them. I note the following additions: Hgb stable with no overt bleeding If rebleeds repeat EGD emergently as if from esophageal varices can attempt to reband; however if from gastric varices then would need to evaluate for TIPS - Patient Problems (1) Hyperglycemia Current Visit: Yes Status: Acute (2) Sepsis Current Visit: Yes Status: Acute Qualifiers: Sepsis type: sepsis due to unspecified organism Qualified Code(s): A41.9 - Sepsis, unspecified organism (3) Esophageal varices with bleeding Current Visit: Yes Status: Acute (4) Gastric varices without bleeding Current Visit: Yes Status: Acute (5) Alcoholic cirrhosis of liver without ascites Current Visit: Yes Status: Acute Objective - Constitutional Vitals: Temp Pulse Resp BP Pulse Ox 98.2 F 98 H 16 137/69 97 03/07/19 20:00 03/07/19 19:00 03/07/19 19:00 03/07/19 19:00 03/07/19 19:00 - Labs CBC & Chem 7: 03/06/19 09:08 03/06/19 09:08 Labs: Laboratory Results - last 24 hr 03/06/19 03/07/19 03/07/19 23:33 04:38 06:08 POC ABG pH 7.347 L POC ABG pCO2 39.6 POC ABG pO2 89 POC ABG HCO3 21.7 POC ABG Total CO2 23 POC ABG O2 Sat 96 POC ABG Base Excess -4 FiO2 30 POC Glucose 141 H 150 H 03/07/19 03/07/19 03/07/19 09:37 11:45 18:12 POC ABG pH 7.309 L 7.361 POC ABG pCO2 42.4 38.5 POC ABG pO2 81 75 L POC ABG HCO3 21.3 21.8 POC ABG Total CO2 23 23 POC ABG O2 Sat 95 94 POC ABG Base Excess -5 -4 FiO2 100 30 POC Glucose 177 H 06/17/19 19:15 POC ABG pH POC ABG pCO2 POC ABG pO2 POC ABG HCO3 POC ABG Total CO2 POC ABG O2 Sat POC ABG Base Excess FiO2 POC Glucose 219 H
--- NOTE | 2019-03-07 15:11 | Progress Note ---
Assessment and Plan Acute gastrointestinal bleed secondary to esophageal varices. Esophageal varices s/p banding Hemorrhagic Shock History of liver cirrhosis. Acute blood loss anemia. Abdominal pain. Obesity. Diabetes. Thrombocytopenia. Lactic acidosis. Acute kidney injury. - continue supplemental oxygen to keep O2 sat's > 90% - continue aspiration precautions - continue CIWA protocol (may need re-intubation if hypoventilation is progressive) - get prn ABG's and address - Advance diet per ST - prn BIPAP - follow H&H - continue PPI therapy - octreotide per G.I. team - conservative volume management at this point - follow stool studies, and continue IV antibiotics Flagyl, Levaquin - de-escalate AB's based on clinical and microbiologic data - Continue Accu-Cheks with glycemic control per sliding scale insulin for target BG < 180 mg/dl - watch in ICU overnight The high probability of a clinically significant, sudden or life threatening deterioration of the Cardiopulmonary and GI] system(s) required my full and direct attention, intervention and personal management. The aggregate critical care time was [36] minutes. This time is in addition to time spent performing reported procedures but includes the following: [x] Data Review and interpretation [x] Patient assessment and monitoring of vital signs [x] Documentation [x] Medication orders and management Subjective Date of service: 03/07/19 Principal diagnosis: Cirrhosis, GI bleed Interval history: Patient is seen today for: Acute GI bleed; Esophageal varices s/p banding; Hemorrhagic Shock; liver cirrhosis; Acute blood loss anemia; Abdominal pain; Obesity; Diabetes; Thrombocytopenia; Lactic acidosis; Acute kidney injury. Seen and examined at bedside; 24hour events reviewed; nursing and respiratory care staff consulted; no adverse overnight events reported to me; resting peacefully in bed; apparently self-extubated but doing well; remains on CIWA protocol; no recurrent GI bleeding and H&H holding Objective Vital Signs - 12hr 03/07/19 03/07/19 03/07/19 04:00 04:51 05:00 Temperature 99.6 F Pulse Rate 79 76 75 Pulse Rate [ Anterior Bilateral Throughout] Pulse Rate [ 79 From Monitor] Respiratory 16 18 Rate Respiratory Rate [Anterior Bilateral Throughout] Blood Pressure 90/40 87/43 88/49 O2 Sat by Pulse 98 98 99 Oximetry 03/07/19 03/07/19 03/07/19 06:00 07:00 08:00 Temperature Pulse Rate 76 73 73 Pulse Rate [ Anterior Bilateral Throughout] Pulse Rate [ 73 From Monitor] Respiratory 18 18 18 Rate Respiratory Rate [Anterior Bilateral Throughout] Blood Pressure 92/50 94/49 97/50 O2 Sat by Pulse 98 98 100 Oximetry 03/07/19 03/07/19 03/07/19 09:00 10:00 10:05 Temperature Pulse Rate 79 88 Pulse Rate [ Anterior Bilateral Throughout] Pulse Rate [ From Monitor] Respiratory 18 11 L Rate Respiratory Rate [Anterior Bilateral Throughout] Blood Pressure 104/53 135/70 O2 Sat by Pulse 97 100 98 Oximetry 03/07/19 03/07/19 03/07/19 11:00 12:00 13:00 Temperature Pulse Rate 87 85 Pulse Rate [ Anterior Bilateral Throughout] Pulse Rate [ 85 From Monitor] Respiratory 13 11 L Rate Respiratory Rate [Anterior Bilateral Throughout] Blood Pressure 136/69 170/75 115/67 O2 Sat by Pulse 97 97 Oximetry 03/07/19 03/07/19 03/07/19 13:14 14:00 14:43 Temperature Pulse Rate 100 H 85 Pulse Rate [ 82 Anterior Bilateral Throughout] Pulse Rate [ From Monitor] Respiratory 11 L Rate Respiratory 18 Rate [Anterior Bilateral Throughout] Blood Pressure 164/68 O2 Sat by Pulse Oximetry Constitutional: no acute distress, other (obese middle aged male with mildly increased resp effort at rest) Eyes: non-icteric ENT: oropharynx moist Neck: supple, no lymphadenopathy, no JVD, other (large neck circumference) Effort: mildly labored Ascultation: Bilateral: clear, diminished breath sounds Percussion: Bilateral: not dull Cardiovascular: regular rate and rhythm Gastrointestinal: hypoactive bowel sounds, soft, tender (mild epigastric), non- distended Integumentary: normal Extremities: no cyanosis, no edema, pink and warm, pulses normal, no ischemia or petechiae Neurologic: non-focal exam, pupils equal and round, CN II-XII normal, motor strength normal and Psychiatric: other (flat affect) CBC and BMP: 03/08/19 09:15 03/06/19 09:08 ABG, PT/INR, D-dimer: ABG POC ABG pH 7.309 (7.35-7.45) L 03/07/19 09:37 POC ABG pCO2 42.4 (35-45) 03/07/19 09:37 POC ABG pO2 81 (80-105) 03/07/19 09:37 POC ABG HCO3 21.3 (22-26 mml/L) 03/07/19 09:37 POC ABG Total CO2 23 (23-27mmol/L) 03/07/19 09:37 POC ABG O2 Sat 95 03/07/19 09:37 PT/INR, D-dimer PT 16.4 Sec. (12.2-14.9) H 03/06/19 09:08 INR 1.36 (0.87-1.13) H 03/06/19 09:08 Abnormal lab findings: Abnormal Labs 03/04/19 03/04/19 03/04/19 00:43 00:43 03:29 RBC 3.25 L Hgb 9.4 L Hct 27.4 L MCHC RDW 15.3 H Plt Count 83 L Lymph % (Auto) 38.0 H [place] % (Auto) 10.0 H [place] # PT INR POC ABG pH POC ABG pCO2 POC ABG pO2 Chloride Carbon Dioxide BUN 29 H Creatinine 0.5 L Glucose 327 H POC Glucose Lactic Acid 2.50 H* Calcium Total Bilirubin 1.40 H Direct Bilirubin AST Alkaline Phosphatase 136 H Total Protein 5.3 L Albumin 2.9 L Ur Specific [place] Urine WBC (Auto) Crossmatch 03/04/19 03/04/19 03/04/19 06:06 08:21 10:10 RBC Hgb 7.7 L 7.2 L Hct 22.3 L 21.5 L MCHC RDW Plt Count Lymph % (Auto) [place] % (Auto) [place] # PT INR POC ABG pH POC ABG pCO2 POC ABG pO2 Chloride Carbon Dioxide BUN Creatinine Glucose POC Glucose 320 H Lactic Acid Calcium Total Bilirubin Direct Bilirubin AST Alkaline Phosphatase Total Protein Albumin Ur Specific [place] Urine WBC (Auto) Crossmatch 03/04/19 03/04/19 03/04/19 10:10 10:10 12:44 RBC Hgb Hct MCHC RDW Plt Count Lymph % (Auto) [place] % (Auto) [place] # PT 17.8 H INR 1.37 H POC ABG pH POC ABG pCO2 POC ABG pO2 Chloride Carbon Dioxide BUN Creatinine Glucose POC Glucose Lactic Acid Calcium Total Bilirubin Direct Bilirubin AST Alkaline Phosphatase Total Protein Albumin Ur Specific [place] 1.043 H Urine WBC (Auto) 12.0 H Crossmatch See Detail 03/04/19 03/04/19 03/04/19 13:07 13:59 16:44 RBC Hgb 8.0 L Hct 23.7 L MCHC RDW Plt Count Lymph % (Auto) [place] % (Auto) [place] # PT INR POC ABG pH POC ABG pCO2 POC ABG pO2 Chloride Carbon Dioxide BUN Creatinine Glucose POC Glucose 306 H 257 H Lactic Acid Calcium Total Bilirubin Direct Bilirubin AST Alkaline Phosphatase Total Protein Albumin Ur Specific [place] Urine WBC (Auto) Crossmatch 03/04/19 03/04/19 03/04/19 16:46 18:51 21:22 RBC Hgb Hct MCHC RDW Plt Count Lymph % (Auto) [place] % (Auto) [place] # PT INR POC ABG pH 7.281 L POC ABG pCO2 47.1 H POC ABG pO2 367 H Chloride Carbon Dioxide BUN Creatinine Glucose POC Glucose 183 H 175 H Lactic Acid Calcium Total Bilirubin Direct Bilirubin AST Alkaline Phosphatase Total Protein Albumin Ur Specific [place] Urine WBC (Auto) Crossmatch 03/05/19 03/05/19 03/05/19 02:15 04:42 04:49 RBC 3.15 L Hgb 9.6 L Hct 27.5 L MCHC 35 H RDW 16.4 H Plt Count 47 L Lymph % (Auto) [place] % (Auto) 9.4 H [place] # PT INR POC ABG pH 7.340 L POC ABG pCO2 POC ABG pO2 Chloride Carbon Dioxide BUN Creatinine Glucose POC Glucose 179 H Lactic Acid Calcium Total Bilirubin Direct Bilirubin AST Alkaline Phosphatase Total Protein Albumin Ur Specific [place] Urine WBC (Auto) Crossmatch 03/05/19 03/05/19 03/05/19 04:49 05:41 11:57 RBC Hgb Hct MCHC RDW Plt Count Lymph % (Auto) [place] % (Auto) [place] # PT INR POC ABG pH POC ABG pCO2 POC ABG pO2 Chloride 113.7 H Carbon Dioxide 20 L BUN 28 H Creatinine 0.7 L Glucose 176 H POC Glucose 209 H 193 H Lactic Acid Calcium 7.3 L Total Bilirubin Direct Bilirubin AST Alkaline Phosphatase Total Protein Albumin Ur Specific [place] Urine WBC (Auto) Crossmatch 03/05/19 03/05/19 03/05/19 15:32 15:38 18:21 RBC Hgb Hct MCHC RDW Plt Count Lymph % (Auto) [place] % (Auto) [place] # PT 16.5 H INR 1.37 H POC ABG pH POC ABG pCO2 POC ABG pO2 Chloride Carbon Dioxide BUN Creatinine Glucose POC Glucose 175 H 184 H Lactic Acid Calcium Total Bilirubin Direct Bilirubin AST Alkaline Phosphatase Total Protein Albumin Ur Specific [place] Urine WBC (Auto) Crossmatch 03/05/19 03/06/19 03/06/19 22:06 02:18 04:45 RBC Hgb Hct MCHC RDW Plt Count Lymph % (Auto) [place] % (Auto) [place] # PT INR POC ABG pH 7.285 L POC ABG pCO2 POC ABG pO2 74 L Chloride Carbon Dioxide BUN Creatinine Glucose POC Glucose 186 H 184 H Lactic Acid Calcium Total Bilirubin Direct Bilirubin AST Alkaline Phosphatase Total Protein Albumin Ur Specific [place] Urine WBC (Auto) Crossmatch 03/06/19 03/06/19 03/06/19 05:59 09:08 09:08 RBC 3.33 L Hgb 9.9 L Hct 29.4 L MCHC RDW 16.8 H Plt Count 70 L Lymph % (Auto) [place] % (Auto) 15.6 H [place] # 0.9 H PT 16.4 H INR 1.36 H POC ABG pH POC ABG pCO2 POC ABG pO2 Chloride Carbon Dioxide BUN Creatinine Glucose POC Glucose 173 H Lactic Acid Calcium Total Bilirubin Direct Bilirubin AST Alkaline Phosphatase Total Protein Albumin Ur Specific [place] Urine WBC (Auto) Crossmatch 03/06/19 03/06/19 03/06/19 09:08 09:25 13:24 RBC Hgb Hct MCHC RDW Plt Count Lymph % (Auto) [place] % (Auto) [place] # PT INR POC ABG pH POC ABG pCO2 POC ABG pO2 Chloride 112.2 H Carbon Dioxide BUN 34 H Creatinine Glucose 156 H POC Glucose 177 H 178 H Lactic Acid Calcium 7.7 L Total Bilirubin Direct Bilirubin 0.4 H AST 64 H Alkaline Phosphatase Total Protein 5.0 L Albumin 2.5 L Ur Specific [place] Urine WBC (Auto) Crossmatch 03/06/19 03/06/19 03/07/19 16:42 23:33 04:38 RBC Hgb Hct MCHC RDW Plt Count Lymph % (Auto) [place] % (Auto) [place] # PT INR POC ABG pH 7.347 L POC ABG pCO2 POC ABG pO2 Chloride Carbon Dioxide BUN Creatinine Glucose POC Glucose 175 H 141 H Lactic Acid Calcium Total Bilirubin Direct Bilirubin AST Alkaline Phosphatase Total Protein Albumin Ur Specific [place] Urine WBC (Auto) Crossmatch 03/07/19 03/07/19 03/07/19 06:08 09:37 11:45 RBC Hgb Hct MCHC RDW Plt Count Lymph % (Auto) [place] % (Auto) [place] # PT INR POC ABG pH 7.309 L POC ABG pCO2 POC ABG pO2 Chloride Carbon Dioxide BUN Creatinine Glucose POC Glucose 150 H 177 H Lactic Acid Calcium Total Bilirubin Direct Bilirubin AST Alkaline Phosphatase Total Protein Albumin Ur Specific [place] Urine WBC (Auto) Crossmatch Chest x-ray: image reviewed (no focal infiltrate) Allied health notes reviewed: nursing
[2019-03-08] MEDS ORDERED: ATIVAN IV ONE (01:32)
[2019-03-08] MEDS: HumuLIN R SUB-Q SCH ×7 (01:32→17:48)
[2019-03-08] MEDS ORDERED: ATIVAN IV PRN (03:41)
[2019-03-08] MEDS: ATIVAN IV PRN (04:29)
[2019-03-08] MEDS: FLAGYL 500 MG/100 ML 500 MG/100 ML BAG IV SCH ×3 (06:15→22:45)
--- NOTE | 2019-03-08 07:57 | XRay Report ---
AP CHEST: HISTORY: Followup respiratory failure The endotracheal tube has been removed since 03/07/19 at 0207 hrs. There is poor inspiration. The lungs are generally clear. Subtle lingular opacity has nearly resolved. No pleural effusion or pneumothorax. Normal heart and mediastinal structures. IMPRESSION: Unremarkable AP chest.
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
[2019-03-08] MEDS: MUCOMYST INHALATION INHALATION SCH ×2 (09:22→21:16)
[2019-03-08] MEDS: PROVENTIL IH SCH ×3 (09:22→21:15)
[2019-03-08] MEDS: PROTONIX IV SCH ×2 (09:56→22:46)
[2019-03-08] MEDS: LEVAQUIN 750MG/150ML 750 MG/150 ML BAG IV SCH (09:56)
[2019-03-08] MEDS: SODIUM CHLORIDE FLUSH SYRINGE 10 ML IV SCH ×2 (09:56→22:45)
[2019-03-08 10:18] LABS: Hematocrit 31.6 % (35.5-45.6); Hemoglobin 10.2 gm/dl (11.8-15.2); Mean Corpuscular HGB Conc 32 % (32-34); Mean Corpuscular Volume 92 fl (84-94); Red Blood Count 3.45 M/mm3 (3.65-5.03); Red Cell Distribution Width 16.6 % (13.2-15.2)
[2019-03-08 10:27] LABS: Platelet Count 87 K/mm3 (140-440)
--- NOTE | 2019-03-08 12:55 | Gastroenterology Progress Note ---
<ARI VILLAR - Last Filed: 03/08/19 12:56> Assessment and Plan 1.GI bleed/melena 2.H/O cirrhosis and varices (s/p banding last year) -H/H 10.2/31.6-trending up -continue to monitor H/H and transfuse as needed -s/p EGD with banding 2/2 variceal bleed (Has esophageal and gastric varices, but bled from esophagus) -okay to d/c octreotide and start on nadolol as tolerated -continue antibiotics for SBP prophylaxis x total of 7 days -continue PPI -cirrhosis-2/2 ETOH and possibly fatty liver -ammonia level in am -limit opiates and sedatives -okay to start on clear liquids if pt able to tolerate -continue supportive care -will need to follow up closely as an outpatient -if rebleeds, repeat emergent EGD with attemp to reband, however may need to try and arrange for transfer for TIPS if possible Subjective Date of service: 03/08/19 Principal diagnosis: Cirrhosis, GI bleed Interval history: Patient remains in ICU on HFO2, noted to be somnolent upon exam (2/2 Ativan?). No active signs of bleeding overnight or this am per nursing. Denies abd pain. Objective - Constitutional Vitals: Temp Pulse Resp BP Pulse Ox 98.3 F 81 18 106/52 98 03/08/19 12:00 03/08/19 09:45 03/08/19 09:45 03/08/19 09:00 03/08/19 09:25 General appearance: no acute distress, other (somnolent) - Respiratory Respiratory: bilateral: diminished - Cardiovascular Rhythm: regular - Gastrointestinal General gastrointestinal: Present: soft, non-distended, normal bowel sounds - Labs CBC & Chem 7: 03/08/19 09:15 03/06/19 09:08 Labs: Laboratory Results - last 24 hr 03/04/19 03/04/19 03/07/19 10:10 15:49 18:12 WBC RBC Hgb Hct MCV MCH MCHC RDW Plt Count POC ABG pH 7.361 POC ABG pCO2 38.5 POC ABG pO2 75 L POC ABG HCO3 21.8 POC ABG Total CO2 23 POC ABG O2 Sat 94 POC ABG Base Excess -4 FiO2 30 POC Glucose 232 H Crossmatch See Detail 03/07/19 03/07/19 03/08/19 19:15 23:12 05:20 WBC RBC Hgb Hct MCV MCH MCHC RDW Plt Count POC ABG pH POC ABG pCO2 POC ABG pO2 POC ABG HCO3 POC ABG Total CO2 POC ABG O2 Sat POC ABG Base Excess FiO2 POC Glucose 219 H 200 H 192 H Crossmatch 03/08/19 09:15 WBC 3.8 L RBC 3.45 L Hgb 10.2 L Hct 31.6 L MCV 92 MCH 30 MCHC 32 RDW 16.6 H Plt Count 87 L POC ABG pH POC ABG pCO2 POC ABG pO2 POC ABG HCO3 POC ABG Total CO2 POC ABG O2 Sat POC ABG Base Excess FiO2 POC Glucose Crossmatch <JUAN NEWTON - Last Filed: 03/08/19 23:52> Assessment and Plan Patient seen and examined. Advanced practitioner's assessment and plan evaluated and I agree with the plan with the following additions: Patient now responding to questions, asking if can have something to drink; ok to start on clear liquid diet and advance as tolerated Complete 7 days abx for SBP prophylaxis - Patient Problems (1) Hyperglycemia Current Visit: Yes Status: Acute (2) Sepsis Current Visit: Yes Status: Acute Qualifiers: Sepsis type: sepsis due to unspecified organism Qualified Code(s): A41.9 - Sepsis, unspecified organism (3) Esophageal varices with bleeding Current Visit: Yes Status: Acute (4) Gastric varices without bleeding Current Visit: Yes Status: Acute (5) Alcoholic cirrhosis of liver without ascites Current Visit: Yes Status: Acute Objective - Constitutional Vitals: Temp Pulse Resp BP Pulse Ox 98.2 F 93 H 22 124/68 98 03/08/19 22:40 03/08/19 22:00 03/08/19 22:40 03/08/19 22:40 03/08/19 22:40 - Labs CBC & Chem 7: 03/08/19 09:15 03/06/19 09:08 Labs: Laboratory Results - last 24 hr 03/04/19 03/04/19 03/08/19 10:10 15:49 05:20 WBC RBC Hgb Hct MCV MCH MCHC RDW Plt Count POC Glucose 232 H 192 H Crossmatch See Detail 03/08/19 03/08/19 03/08/19 09:15 12:06 17:24 WBC 3.8 L RBC 3.45 L Hgb 10.2 L Hct 31.6 L MCV 92 MCH 30 MCHC 32 RDW 16.6 H Plt Count 87 L POC Glucose 171 H 172 H Crossmatch 03/08/19 23:16 WBC RBC Hgb Hct MCV MCH MCHC RDW Plt Count POC Glucose 171 H Crossmatch
--- NOTE | 2019-03-08 15:02 | Progress Note ---
Assessment and Plan Acute gastrointestinal bleed secondary to esophageal varices. Esophageal varices s/p banding Hemorrhagic Shock History of liver cirrhosis. Acute blood loss anemia. Abdominal pain. Obesity. Diabetes. Thrombocytopenia. Lactic acidosis. Acute kidney injury. - continue supplemental oxygen to keep O2 sat's > 90% - continue aspiration precautions - continue CIWA protocol (may need re-intubation if hypoventilation is progressive) - get prn ABG's and address - Advance diet per ST - prn BIPAP - follow H&H - continue PPI therapy - octreotide per G.I. team - conservative volume management at this point - follow stool studies, and continue IV antibiotics Flagyl, Levaquin - de-escalate AB's based on clinical and microbiologic data - Continue Accu-Cheks with glycemic control per sliding scale insulin for target BG < 180 mg/dl ... OK to transfer to Medical Floor Subjective Date of service: 03/08/19 Principal diagnosis: Acute GI bleed; Esophageal varices s/p banding; Hemorrhagic Shock; ABLA Interval history: Patient is seen today for: Acute GI bleed; Esophageal varices s/p banding; Hemorrhagic Shock; liver cirrhosis; Acute blood loss anemia; Abdominal pain; Obesity; Diabetes; Thrombocytopenia; Lactic acidosis; Acute kidney injury. Seen and examined at bedside; 24hour events reviewed; nursing and respiratory care staff consulted; no adverse overnight events reported to me; resting peacefully in bed; doing well; no rebleeding; less delirium; denies N/V/F/C Objective Vital Signs - 12hr 03/08/19 03/08/19 03/08/19 04:00 05:00 06:00 Temperature Pulse Rate 87 83 84 Pulse Rate [ Anterior Bilateral Throughout] Pulse Rate [ 96 H From Monitor] Respiratory 14 18 21 Rate Respiratory Rate [Anterior Bilateral Throughout] Blood Pressure 106/57 101/56 110/57 O2 Sat by Pulse 96 95 95 Oximetry 03/08/19 03/08/19 03/08/19 07:00 08:00 09:00 Temperature 97.3 F L Pulse Rate 88 80 83 Pulse Rate [ Anterior Bilateral Throughout] Pulse Rate [ 80 From Monitor] Respiratory 22 17 17 Rate Respiratory Rate [Anterior Bilateral Throughout] Blood Pressure 110/57 106/52 106/52 O2 Sat by Pulse 100 100 97 Oximetry 03/08/19 03/08/19 03/08/19 09:25 09:45 12:00 Temperature 98.3 F Pulse Rate Pulse Rate [ 80 81 Anterior Bilateral Throughout] Pulse Rate [ From Monitor] Respiratory Rate Respiratory 21 18 Rate [Anterior Bilateral Throughout] Blood Pressure O2 Sat by Pulse 98 Oximetry 03/08/19 13:08 Temperature Pulse Rate Pulse Rate [ Anterior Bilateral Throughout] Pulse Rate [ From Monitor] Respiratory Rate Respiratory Rate [Anterior Bilateral Throughout] Blood Pressure O2 Sat by Pulse 97 Oximetry Constitutional: no acute distress, other (obese middle aged male with mildly increased resp effort at rest) Eyes: non-icteric ENT: oropharynx moist Neck: supple, no lymphadenopathy, no JVD, other (large neck circumference) Effort: mildly labored Ascultation: Bilateral: clear, diminished breath sounds Percussion: Bilateral: not dull Cardiovascular: regular rate and rhythm Gastrointestinal: hypoactive bowel sounds, soft, tender (mild epigastric), non- distended Integumentary: normal Extremities: no cyanosis, no edema, pink and warm, pulses normal, no ischemia or petechiae Neurologic: non-focal exam, pupils equal and round, CN II-XII normal, motor strength normal and Psychiatric: other (flat affect) CBC and BMP: 03/10/19 05:27 03/10/19 05:27 ABG, PT/INR, D-dimer: ABG POC ABG pH 7.361 (7.35-7.45) 03/07/19 18:12 POC ABG pCO2 38.5 (35-45) 03/07/19 18:12 POC ABG pO2 75 (80-105) L 03/07/19 18:12 POC ABG HCO3 21.8 (22-26 mml/L) 03/07/19 18:12 POC ABG Total CO2 23 (23-27mmol/L) 03/07/19 18:12 POC ABG O2 Sat 94 03/07/19 18:12 PT/INR, D-dimer PT 16.4 Sec. (12.2-14.9) H 03/06/19 09:08 INR 1.36 (0.87-1.13) H 03/06/19 09:08 Abnormal lab findings: Abnormal Labs 03/04/19 03/04/19 03/04/19 00:43 00:43 03:29 WBC RBC 3.25 L Hgb 9.4 L Hct 27.4 L MCHC RDW 15.3 H Plt Count 83 L Lymph % (Auto) 38.0 H [place] % (Auto) 10.0 H [place] # PT INR POC ABG pH POC ABG pCO2 POC ABG pO2 Chloride Carbon Dioxide BUN 29 H Creatinine 0.5 L Glucose 327 H POC Glucose Lactic Acid 2.50 H* Calcium Total Bilirubin 1.40 H Direct Bilirubin AST Alkaline Phosphatase 136 H Total Protein 5.3 L Albumin 2.9 L Ur Specific [place] Urine WBC (Auto) Crossmatch 03/04/19 03/04/19 03/04/19 06:06 08:21 10:10 WBC RBC Hgb 7.7 L 7.2 L Hct 22.3 L 21.5 L MCHC RDW Plt Count Lymph % (Auto) [place] % (Auto) [place] # PT INR POC ABG pH POC ABG pCO2 POC ABG pO2 Chloride Carbon Dioxide BUN Creatinine Glucose POC Glucose 320 H Lactic Acid Calcium Total Bilirubin Direct Bilirubin AST Alkaline Phosphatase Total Protein Albumin Ur Specific [place] Urine WBC (Auto) Crossmatch 03/04/19 03/04/19 03/04/19 10:10 10:10 12:44 WBC RBC Hgb Hct MCHC RDW Plt Count Lymph % (Auto) [place] % (Auto) [place] # PT 17.8 H INR 1.37 H POC ABG pH POC ABG pCO2 POC ABG pO2 Chloride Carbon Dioxide BUN Creatinine Glucose POC Glucose Lactic Acid Calcium Total Bilirubin Direct Bilirubin AST Alkaline Phosphatase Total Protein Albumin Ur Specific [place] 1.043 H Urine WBC (Auto) 12.0 H Crossmatch See Detail 03/04/19 03/04/19 03/04/19 13:07 13:59 15:49 WBC RBC Hgb Hct MCHC RDW Plt Count Lymph % (Auto) [place] % (Auto) [place] # PT INR POC ABG pH POC ABG pCO2 POC ABG pO2 Chloride Carbon Dioxide BUN Creatinine Glucose POC Glucose 306 H 257 H 232 H Lactic Acid Calcium Total Bilirubin Direct Bilirubin AST Alkaline Phosphatase Total Protein Albumin Ur Specific [place] Urine WBC (Auto) Crossmatch 03/04/19 03/04/19 03/04/19 16:44 16:46 18:51 WBC RBC Hgb 8.0 L Hct 23.7 L MCHC RDW Plt Count Lymph % (Auto) [place] % (Auto) [place] # PT INR POC ABG pH 7.281 L POC ABG pCO2 47.1 H POC ABG pO2 367 H Chloride Carbon Dioxide BUN Creatinine Glucose POC Glucose 183 H Lactic Acid Calcium Total Bilirubin Direct Bilirubin AST Alkaline Phosphatase Total Protein Albumin Ur Specific [place] Urine WBC (Auto) Crossmatch 03/04/19 03/05/19 03/05/19 21:22 02:15 04:42 WBC RBC Hgb Hct MCHC RDW Plt Count Lymph % (Auto) [place] % (Auto) [place] # PT INR POC ABG pH 7.340 L POC ABG pCO2 POC ABG pO2 Chloride Carbon Dioxide BUN Creatinine Glucose POC Glucose 175 H 179 H Lactic Acid Calcium Total Bilirubin Direct Bilirubin AST Alkaline Phosphatase Total Protein Albumin Ur Specific [place] Urine WBC (Auto) Crossmatch 03/05/19 03/05/19 03/05/19 04:49 04:49 05:41 WBC RBC 3.15 L Hgb 9.6 L Hct 27.5 L MCHC 35 H RDW 16.4 H Plt Count 47 L Lymph % (Auto) [place] % (Auto) 9.4 H [place] # PT INR POC ABG pH POC ABG pCO2 POC ABG pO2 Chloride 113.7 H Carbon Dioxide 20 L BUN 28 H Creatinine 0.7 L Glucose 176 H POC Glucose 209 H Lactic Acid Calcium 7.3 L Total Bilirubin Direct Bilirubin AST Alkaline Phosphatase Total Protein Albumin Ur Specific [place] Urine WBC (Auto) Crossmatch 03/05/19 03/05/19 03/05/19 11:57 15:32 15:38 WBC RBC Hgb Hct MCHC RDW Plt Count Lymph % (Auto) [place] % (Auto) [place] # PT 16.5 H INR 1.37 H POC ABG pH POC ABG pCO2 POC ABG pO2 Chloride Carbon Dioxide BUN Creatinine Glucose POC Glucose 193 H 175 H Lactic Acid Calcium Total Bilirubin Direct Bilirubin AST Alkaline Phosphatase Total Protein Albumin Ur Specific [place] Urine WBC (Auto) Crossmatch 03/05/19 03/05/19 03/06/19 18:21 22:06 02:18 WBC RBC Hgb Hct MCHC RDW Plt Count Lymph % (Auto) [place] % (Auto) [place] # PT INR POC ABG pH POC ABG pCO2 POC ABG pO2 Chloride Carbon Dioxide BUN Creatinine Glucose POC Glucose 184 H 186 H 184 H Lactic Acid Calcium Total Bilirubin Direct Bilirubin AST Alkaline Phosphatase Total Protein Albumin Ur Specific [place] Urine WBC (Auto) Crossmatch 03/06/19 03/06/19 03/06/19 04:45 05:59 09:08 WBC RBC 3.33 L Hgb 9.9 L Hct 29.4 L MCHC RDW 16.8 H Plt Count 70 L Lymph % (Auto) [place] % (Auto) 15.6 H [place] # 0.9 H PT INR POC ABG pH 7.285 L POC ABG pCO2 POC ABG pO2 74 L Chloride Carbon Dioxide BUN Creatinine Glucose POC Glucose 173 H Lactic Acid Calcium Total Bilirubin Direct Bilirubin AST Alkaline Phosphatase Total Protein Albumin Ur Specific [place] Urine WBC (Auto) Crossmatch 03/06/19 03/06/19 03/06/19 09:08 09:08 09:25 WBC RBC Hgb Hct MCHC RDW Plt Count Lymph % (Auto) [place] % (Auto) [place] # PT 16.4 H INR 1.36 H POC ABG pH POC ABG pCO2 POC ABG pO2 Chloride 112.2 H Carbon Dioxide BUN 34 H Creatinine Glucose 156 H POC Glucose 177 H Lactic Acid Calcium 7.7 L Total Bilirubin Direct Bilirubin 0.4 H AST 64 H Alkaline Phosphatase Total Protein 5.0 L Albumin 2.5 L Ur Specific [place] Urine WBC (Auto) Crossmatch 03/06/19 03/06/19 03/06/19 13:24 16:42 23:33 WBC RBC Hgb Hct MCHC RDW Plt Count Lymph % (Auto) [place] % (Auto) [place] # PT INR POC ABG pH POC ABG pCO2 POC ABG pO2 Chloride Carbon Dioxide BUN Creatinine Glucose POC Glucose 178 H 175 H 141 H Lactic Acid Calcium Total Bilirubin Direct Bilirubin AST Alkaline Phosphatase Total Protein Albumin Ur Specific [place] Urine WBC (Auto) Crossmatch 03/07/19 03/07/19 03/07/19 04:38 06:08 09:37 WBC RBC Hgb Hct MCHC RDW Plt Count Lymph % (Auto) [place] % (Auto) [place] # PT INR POC ABG pH 7.347 L 7.309 L POC ABG pCO2 POC ABG pO2 Chloride Carbon Dioxide BUN Creatinine Glucose POC Glucose 150 H Lactic Acid Calcium Total Bilirubin Direct Bilirubin AST Alkaline Phosphatase Total Protein Albumin Ur Specific [place] Urine WBC (Auto) Crossmatch 03/07/19 03/07/19 03/07/19 11:45 18:12 19:15 WBC RBC Hgb Hct MCHC RDW Plt Count Lymph % (Auto) [place] % (Auto) [place] # PT INR POC ABG pH POC ABG pCO2 POC ABG pO2 75 L Chloride Carbon Dioxide BUN Creatinine Glucose POC Glucose 177 H 219 H Lactic Acid Calcium Total Bilirubin Direct Bilirubin AST Alkaline Phosphatase Total Protein Albumin Ur Specific [place] Urine WBC (Auto) Crossmatch 03/07/19 03/08/19 03/08/19 23:12 05:20 09:15 WBC 3.8 L RBC 3.45 L Hgb 10.2 L Hct 31.6 L MCHC RDW 16.6 H Plt Count 87 L Lymph % (Auto) [place] % (Auto) [place] # PT INR POC ABG pH POC ABG pCO2 POC ABG pO2 Chloride Carbon Dioxide BUN Creatinine Glucose POC Glucose 200 H 192 H Lactic Acid Calcium Total Bilirubin Direct Bilirubin AST Alkaline Phosphatase Total Protein Albumin Ur Specific [place] Urine WBC (Auto) Crossmatch 03/08/19 12:06 WBC RBC Hgb Hct MCHC RDW Plt Count Lymph % (Auto) [place] % (Auto) [place] # PT INR POC ABG pH POC ABG pCO2 POC ABG pO2 Chloride Carbon Dioxide BUN Creatinine Glucose POC Glucose 171 H Lactic Acid Calcium Total Bilirubin Direct Bilirubin AST Alkaline Phosphatase Total Protein Albumin Ur Specific [place] Urine WBC (Auto) Crossmatch Allied health notes reviewed: nursing
[2019-03-09] MEDS: SODIUM CHLORIDE FLUSH SYRINGE 10 ML IV SCH ×3 (00:05→22:10)
[2019-03-09] MEDS: HumuLIN R SUB-Q SCH ×4 (00:09→18:17)
[2019-03-09] MEDS: ATIVAN IV PRN ×5 (01:28→08:10)
[2019-03-09] MEDS: FLAGYL 500 MG/100 ML 500 MG/100 ML BAG IV SCH ×3 (05:31→22:08)
[2019-03-09] MEDS ORDERED: TYLENOL PO PRN (08:24)
[2019-03-09] MEDS: PROVENTIL IH SCH ×3 (09:41→20:51)
[2019-03-09] MEDS: PROTONIX IV SCH ×2 (10:23→22:08)
[2019-03-09] MEDS: LEVAQUIN 750MG/150ML 750 MG/150 ML BAG IV SCH (10:25)
[2019-03-09] MEDS ORDERED: CORGARD PO ONE (10:30)
[2019-03-09 11:05] LABS: Hematocrit 26.4 % (35.5-45.6); Hemoglobin 9.2 gm/dl (11.8-15.2); Mean Corpuscular HGB Conc 35 % (32-34); Mean Corpuscular Volume 87 fl (84-94); Platelet Count 101 K/mm3 (140-440); Red Blood Count 3.03 M/mm3 (3.65-5.03); Red Cell Distribution Width 15.9 % (13.2-15.2)
[2019-03-09 11:16] LABS: INR 1.54 (0.87-1.13)
[2019-03-09 11:39] LABS: BUN/Creatinine Ratio 17; Blood Urea Nitrogen 10 mg/dL (9-20); Calcium 7.5 mg/dL (8.4-10.2); Hemolysis Index 11
[2019-03-09] MEDS: D5/0.45NS 1,000 ML IV SCH (12:22)
--- NOTE | 2019-03-09 13:59 | Gastroenterology Progress Note ---
<ARI VILLAR - Last Filed: 03/09/19 13:59> Assessment and Plan 1.GI bleed/melena 2.H/O cirrhosis and varices (s/p banding last year) -H/H 9.2/26.4 -continue to monitor H/H and transfuse as needed -BM x 1 this am with black stool per nursing (possibly sequela?) -clinically, patient is HD stable but lethargic upon exam after recent dose of Ativan. No evidence of abd pain, N/V, hematemesis or hematochezia. -ammonia WNL -s/p EGD with banding 2/2 variceal bleed (Has esophageal and gastric varices, but bled from esophagus) -continue nadolol as tolerated -continue antibiotics for SBP prophylaxis x total of 7 days -continue PPI -cirrhosis-2/2 ETOH and possibly fatty liver -limit opiates and sedatives -okay to start on soft diet (would not advance past soft diet for now) -continue supportive care -will need to follow up closely as an outpatient -if rebleeds, recommend repeat emergent EGD with attempt to reband, however may need to try and arrange for transfer for TIPS if possible Subjective Date of service: 03/09/19 Principal diagnosis: GI bleed Interval history: Patient w/o acute distress but lethargic upon exam, however had recently received a dose of Ativan. BM x 1 this am per nursing with black stool. No hematemeis or hematochezia. Objective - Constitutional Vitals: Temp Pulse Resp BP Pulse Ox 98.8 F 90 24 101/60 94 03/09/19 11:32 03/09/19 11:32 03/09/19 11:32 03/09/19 11:32 03/09/19 11:32 General appearance: no acute distress, other (lethargic) - Respiratory Respiratory effort: normal - Cardiovascular Rhythm: regular - Gastrointestinal General gastrointestinal: Present: soft, non-distended, normal bowel sounds - Labs CBC & Chem 7: 03/09/19 10:24 03/09/19 10:24 Labs: Laboratory Results - last 24 hr 03/08/19 03/08/19 03/09/19 17:24 23:16 06:10 WBC RBC Hgb Hct MCV MCH MCHC RDW Plt Count PT INR Sodium Potassium Chloride Carbon Dioxide Anion Gap BUN Creatinine Estimated GFR BUN/Creatinine Ratio Glucose POC Glucose 172 H 171 H 168 H Calcium Ammonia 03/09/19 03/09/19 03/09/19 07:53 10:24 10:24 WBC 3.9 L RBC 3.03 L Hgb 9.2 L Hct 26.4 L MCV 87 MCH 30 MCHC 35 H RDW 15.9 H Plt Count 101 L PT INR Sodium Potassium Chloride Carbon Dioxide Anion Gap BUN Creatinine Estimated GFR BUN/Creatinine Ratio Glucose POC Glucose 135 H Calcium Ammonia 53.0 03/09/19 03/09/19 03/09/19 10:24 10:24 11:15 WBC RBC Hgb Hct MCV MCH MCHC RDW Plt Count PT 18.1 H INR 1.54 H Sodium 145 Potassium 3.1 L Chloride 109.0 H Carbon Dioxide 24 Anion Gap 15 BUN 10 Creatinine 0.6 L Estimated GFR > 60 BUN/Creatinine Ratio 17 Glucose 135 H POC Glucose 152 H Calcium 7.5 L Ammonia <JUAN NEWTON - Last Filed: 03/09/19 23:06> Assessment and Plan Patient seen and examined. I agree with the advanced practitioner's assessment and plan, with the following additions: patient is clinically improving, no more bleeding, from GI standpoint can be discharged with close outpatient follow up; needs to complete 7 days of abx (january DC on PO cipro 500mg PO BID) for infection prophylaxis - Patient Problems (1) Hyperglycemia Current Visit: Yes Status: Acute (2) Sepsis Current Visit: Yes Status: Acute Qualifiers: Sepsis type: sepsis due to unspecified organism Qualified Code(s): A41.9 - Sepsis, unspecified organism (3) Esophageal varices with bleeding Current Visit: Yes Status: Acute (4) Gastric varices without bleeding Current Visit: Yes Status: Acute (5) Alcoholic cirrhosis of liver without ascites Current Visit: Yes Status: Acute Objective - Constitutional Vitals: Temp Pulse Resp BP Pulse Ox 99.0 F 95 H 20 119/65 98 03/09/19 17:19 03/09/19 21:37 03/09/19 21:37 03/09/19 17:19 03/09/19 21:37 - Labs CBC & Chem 7: 03/09/19 10:24 03/09/19 10:24 Labs: Laboratory Results - last 24 hr 06/03/09/19 03/09/19 23:16 06:10 07:53 WBC RBC Hgb Hct MCV MCH MCHC RDW Plt Count PT INR Sodium Potassium Chloride Carbon Dioxide Anion Gap BUN Creatinine Estimated GFR BUN/Creatinine Ratio Glucose POC Glucose 171 H 168 H 135 H Calcium Ammonia 03/09/19 03/09/19 03/09/19 10:24 10:24 10:24 WBC 3.9 L RBC 3.03 L Hgb 9.2 L Hct 26.4 L MCV 87 MCH 30 MCHC 35 H RDW 15.9 H Plt Count 101 L PT INR Sodium 145 Potassium 3.1 L Chloride 109.0 H Carbon Dioxide 24 Anion Gap 15 BUN 10 Creatinine 0.6 L Estimated GFR > 60 BUN/Creatinine Ratio 17 Glucose 135 H POC Glucose Calcium 7.5 L Ammonia 53.0 03/09/19 03/09/19 03/09/19 10:24 11:15 16:46 WBC RBC Hgb Hct MCV MCH MCHC RDW Plt Count PT 18.1 H INR 1.54 H Sodium Potassium Chloride Carbon Dioxide Anion Gap BUN Creatinine Estimated GFR BUN/Creatinine Ratio Glucose POC Glucose 152 H 145 H Calcium Ammonia 03/09/19 22:11 WBC RBC Hgb Hct MCV MCH MCHC RDW Plt Count PT INR Sodium Potassium Chloride Carbon Dioxide Anion Gap BUN Creatinine Estimated GFR BUN/Creatinine Ratio Glucose POC Glucose 150 H Calcium Ammonia
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
--- NOTE | 2019-03-09 18:09 | Progress Note ---
Assessment and Plan Patient sleeping. Not responding to verbal stimuli. On room air.O2 saturation 93%.No acute respiratory distress. - Patient Problems (1) Alcoholic cirrhosis of liver without ascites Current Visit: Yes Status: Acute Plan to address problem: Management as per primary care and gastroenterology. (2) Esophageal varices with bleeding Current Visit: Yes Status: Acute Plan to address problem: Management as per gastroenterology. (3) Gastric varices without bleeding Current Visit: Yes Status: Acute Plan to address problem: Management as per gastroenterology. (4) Hyperglycemia Current Visit: Yes Status: Acute Plan to address problem: Recent blood sugur 145. (5) Sepsis Current Visit: Yes Status: Acute Qualifiers: Sepsis type: sepsis due to unspecified organism Qualified Code(s): A41.9 - Sepsis, unspecified organism Plan to address problem: Patient is on I/V Levaquin. Subjective Date of service: 03/09/19 Principal diagnosis: GI bleed Interval history: Patient sleeping. Not responding to verbal stimuli. On room air.O2 saturation 93%.No acute respiratory distress. Objective Vital Signs - 12hr 03/09/19 03/09/19 03/09/19 06:30 09:40 09:55 Temperature 101.2 F H Pulse Rate Pulse Rate [ 92 H 86 Anterior Bilateral Throughout] Pulse Rate [ 115 H Radial] Respiratory 24 Rate Respiratory 16 18 Rate [Anterior Bilateral Throughout] Blood Pressure 115/55 O2 Sat by Pulse 96 95 Oximetry 03/09/19 03/09/19 03/09/19 10:43 11:32 15:35 Temperature 98.8 F Pulse Rate 115 H 90 Pulse Rate [ 80 Anterior Bilateral Throughout] Pulse Rate [ Radial] Respiratory 24 Rate Respiratory 16 Rate [Anterior Bilateral Throughout] Blood Pressure 115/55 101/60 O2 Sat by Pulse 94 Oximetry 03/09/19 15:55 Temperature Pulse Rate Pulse Rate [ 82 Anterior Bilateral Throughout] Pulse Rate [ Radial] Respiratory Rate Respiratory 18 Rate [Anterior Bilateral Throughout] Blood Pressure O2 Sat by Pulse Oximetry Constitutional: no acute distress, asleep Eyes: non-icteric ENT: oropharynx moist Neck: supple, no lymphadenopathy, no JVD, other (large neck circumference) Effort: mildly labored Ascultation: Bilateral: diminished breath sounds Percussion: Bilateral: not dull Cardiovascular: regular rate and rhythm Gastrointestinal: hypoactive bowel sounds, soft, tender (mild epigastric), non- distended Integumentary: normal Extremities: no cyanosis, no edema, pink and warm, pulses normal, no ischemia or petechiae Neurologic: non-focal exam, pupils equal and round, CN II-XII normal, motor strength normal and Psychiatric: other (flat affect) CBC and BMP: 03/09/19 10:24 03/09/19 10:24 ABG, PT/INR, D-dimer: ABG POC ABG pH 7.361 (7.35-7.45) 03/07/19 18:12 POC ABG pCO2 38.5 (35-45) 03/07/19 18:12 POC ABG pO2 75 (80-105) L 03/07/19 18:12 POC ABG HCO3 21.8 (22-26 mml/L) 03/07/19 18:12 POC ABG Total CO2 23 (23-27mmol/L) 03/07/19 18:12 POC ABG O2 Sat 94 03/07/19 18:12 PT/INR, D-dimer PT 18.1 Sec. (12.2-14.9) H 03/09/19 10:24 INR 1.54 (0.87-1.13) H 03/09/19 10:24 Abnormal lab findings: Abnormal Labs 03/04/19 03/04/19 03/04/19 00:43 00:43 03:29 WBC RBC 3.25 L Hgb 9.4 L Hct 27.4 L MCHC RDW 15.3 H Plt Count 83 L Lymph % (Auto) 38.0 H [place] % (Auto) 10.0 H [place] # PT INR POC ABG pH POC ABG pCO2 POC ABG pO2 Potassium Chloride Carbon Dioxide BUN 29 H Creatinine 0.5 L Glucose 327 H POC Glucose Lactic Acid 2.50 H* Calcium Total Bilirubin 1.40 H Direct Bilirubin AST Alkaline Phosphatase 136 H Total Protein 5.3 L Albumin 2.9 L Ur Specific [place] Urine WBC (Auto) Crossmatch 03/04/19 03/04/19 03/04/19 06:06 08:21 10:10 WBC RBC Hgb 7.7 L 7.2 L Hct 22.3 L 21.5 L MCHC RDW Plt Count Lymph % (Auto) [place] % (Auto) [place] # PT INR POC ABG pH POC ABG pCO2 POC ABG pO2 Potassium Chloride Carbon Dioxide BUN Creatinine Glucose POC Glucose 320 H Lactic Acid Calcium Total Bilirubin Direct Bilirubin AST Alkaline Phosphatase Total Protein Albumin Ur Specific [place] Urine WBC (Auto) Crossmatch 03/04/19 03/04/19 03/04/19 10:10 10:10 12:44 WBC RBC Hgb Hct MCHC RDW Plt Count Lymph % (Auto) [place] % (Auto) [place] # PT 17.8 H INR 1.37 H POC ABG pH POC ABG pCO2 POC ABG pO2 Potassium Chloride Carbon Dioxide BUN Creatinine Glucose POC Glucose Lactic Acid Calcium Total Bilirubin Direct Bilirubin AST Alkaline Phosphatase Total Protein Albumin Ur Specific [place] 1.043 H Urine WBC (Auto) 12.0 H Crossmatch See Detail 03/04/19 03/04/19 03/04/19 13:07 13:59 15:49 WBC RBC Hgb Hct MCHC RDW Plt Count Lymph % (Auto) [place] % (Auto) [place] # PT INR POC ABG pH POC ABG pCO2 POC ABG pO2 Potassium Chloride Carbon Dioxide BUN Creatinine Glucose POC Glucose 306 H 257 H 232 H Lactic Acid Calcium Total Bilirubin Direct Bilirubin AST Alkaline Phosphatase Total Protein Albumin Ur Specific [place] Urine WBC (Auto) Crossmatch 03/04/19 03/04/19 03/04/19 16:44 16:46 18:51 WBC RBC Hgb 8.0 L Hct 23.7 L MCHC RDW Plt Count Lymph % (Auto) [place] % (Auto) [place] # PT INR POC ABG pH 7.281 L POC ABG pCO2 47.1 H POC ABG pO2 367 H Potassium Chloride Carbon Dioxide BUN Creatinine Glucose POC Glucose 183 H Lactic Acid Calcium Total Bilirubin Direct Bilirubin AST Alkaline Phosphatase Total Protein Albumin Ur Specific [place] Urine WBC (Auto) Crossmatch 03/04/19 03/05/19 03/05/19 21:22 02:15 04:42 WBC RBC Hgb Hct MCHC RDW Plt Count Lymph % (Auto) [place] % (Auto) [place] # PT INR POC ABG pH 7.340 L POC ABG pCO2 POC ABG pO2 Potassium Chloride Carbon Dioxide BUN Creatinine Glucose POC Glucose 175 H 179 H Lactic Acid Calcium Total Bilirubin Direct Bilirubin AST Alkaline Phosphatase Total Protein Albumin Ur Specific [place] Urine WBC (Auto) Crossmatch 03/05/19 03/05/19 03/05/19 04:49 04:49 05:41 WBC RBC 3.15 L Hgb 9.6 L Hct 27.5 L MCHC 35 H RDW 16.4 H Plt Count 47 L Lymph % (Auto) [place] % (Auto) 9.4 H [place] # PT INR POC ABG pH POC ABG pCO2 POC ABG pO2 Potassium Chloride 113.7 H Carbon Dioxide 20 L BUN 28 H Creatinine 0.7 L Glucose 176 H POC Glucose 209 H Lactic Acid Calcium 7.3 L Total Bilirubin Direct Bilirubin AST Alkaline Phosphatase Total Protein Albumin Ur Specific [place] Urine WBC (Auto) Crossmatch 03/05/19 03/05/19 03/05/19 11:57 15:32 15:38 WBC RBC Hgb Hct MCHC RDW Plt Count Lymph % (Auto) [place] % (Auto) [place] # PT 16.5 H INR 1.37 H POC ABG pH POC ABG pCO2 POC ABG pO2 Potassium Chloride Carbon Dioxide BUN Creatinine Glucose POC Glucose 193 H 175 H Lactic Acid Calcium Total Bilirubin Direct Bilirubin AST Alkaline Phosphatase Total Protein Albumin Ur Specific [place] Urine WBC (Auto) Crossmatch 03/05/19 03/05/19 03/06/19 18:21 22:06 02:18 WBC RBC Hgb Hct MCHC RDW Plt Count Lymph % (Auto) [place] % (Auto) [place] # PT INR POC ABG pH POC ABG pCO2 POC ABG pO2 Potassium Chloride Carbon Dioxide BUN Creatinine Glucose POC Glucose 184 H 186 H 184 H Lactic Acid Calcium Total Bilirubin Direct Bilirubin AST Alkaline Phosphatase Total Protein Albumin Ur Specific [place] Urine WBC (Auto) Crossmatch 03/06/19 03/06/19 03/06/19 04:45 05:59 09:08 WBC RBC 3.33 L Hgb 9.9 L Hct 29.4 L MCHC RDW 16.8 H Plt Count 70 L Lymph % (Auto) [place] % (Auto) 15.6 H [place] # 0.9 H PT INR POC ABG pH 7.285 L POC ABG pCO2 POC ABG pO2 74 L Potassium Chloride Carbon Dioxide BUN Creatinine Glucose POC Glucose 173 H Lactic Acid Calcium Total Bilirubin Direct Bilirubin AST Alkaline Phosphatase Total Protein Albumin Ur Specific [place] Urine WBC (Auto) Crossmatch 03/06/19 03/06/19 03/06/19 09:08 09:08 09:25 WBC RBC Hgb Hct MCHC RDW Plt Count Lymph % (Auto) [place] % (Auto) [place] # PT 16.4 H INR 1.36 H POC ABG pH POC ABG pCO2 POC ABG pO2 Potassium Chloride 112.2 H Carbon Dioxide BUN 34 H Creatinine Glucose 156 H POC Glucose 177 H Lactic Acid Calcium 7.7 L Total Bilirubin Direct Bilirubin 0.4 H AST 64 H Alkaline Phosphatase Total Protein 5.0 L Albumin 2.5 L Ur Specific [place] Urine WBC (Auto) Crossmatch 03/06/19 03/06/19 03/06/19 13:24 16:42 23:33 WBC RBC Hgb Hct MCHC RDW Plt Count Lymph % (Auto) [place] % (Auto) [place] # PT INR POC ABG pH POC ABG pCO2 POC ABG pO2 Potassium Chloride Carbon Dioxide BUN Creatinine Glucose POC Glucose 178 H 175 H 141 H Lactic Acid Calcium Total Bilirubin Direct Bilirubin AST Alkaline Phosphatase Total Protein Albumin Ur Specific [place] Urine WBC (Auto) Crossmatch 03/07/19 03/07/19 03/07/19 04:38 06:08 09:37 WBC RBC Hgb Hct MCHC RDW Plt Count Lymph % (Auto) [place] % (Auto) [place] # PT INR POC ABG pH 7.347 L 7.309 L POC ABG pCO2 POC ABG pO2 Potassium Chloride Carbon Dioxide BUN Creatinine Glucose POC Glucose 150 H Lactic Acid Calcium Total Bilirubin Direct Bilirubin AST Alkaline Phosphatase Total Protein Albumin Ur Specific [place] Urine WBC (Auto) Crossmatch 03/07/19 03/07/19 03/07/19 11:45 18:12 19:15 WBC RBC Hgb Hct MCHC RDW Plt Count Lymph % (Auto) [place] % (Auto) [place] # PT INR POC ABG pH POC ABG pCO2 POC ABG pO2 75 L Potassium Chloride Carbon Dioxide BUN Creatinine Glucose POC Glucose 177 H 219 H Lactic Acid Calcium Total Bilirubin Direct Bilirubin AST Alkaline Phosphatase Total Protein Albumin Ur Specific [place] Urine WBC (Auto) Crossmatch 03/07/19 03/08/19 03/08/19 23:12 05:20 09:15 WBC 3.8 L RBC 3.45 L Hgb 10.2 L Hct 31.6 L MCHC RDW 16.6 H Plt Count 87 L Lymph % (Auto) [place] % (Auto) [place] # PT INR POC ABG pH POC ABG pCO2 POC ABG pO2 Potassium Chloride Carbon Dioxide BUN Creatinine Glucose POC Glucose 200 H 192 H Lactic Acid Calcium Total Bilirubin Direct Bilirubin AST Alkaline Phosphatase Total Protein Albumin Ur Specific [place] Urine WBC (Auto) Crossmatch 06/03/08/19 03/08/19 12:06 17:24 23:16 WBC RBC Hgb Hct MCHC RDW Plt Count Lymph % (Auto) [place] % (Auto) [place] # PT INR POC ABG pH POC ABG pCO2 POC ABG pO2 Potassium Chloride Carbon Dioxide BUN Creatinine Glucose POC Glucose 171 H 172 H 171 H Lactic Acid Calcium Total Bilirubin Direct Bilirubin AST Alkaline Phosphatase Total Protein Albumin Ur Specific [place] Urine WBC (Auto) Crossmatch 03/09/19 03/09/19 03/09/19 06:10 07:53 10:24 WBC 3.9 L RBC 3.03 L Hgb 9.2 L Hct 26.4 L MCHC 35 H RDW 15.9 H Plt Count 101 L Lymph % (Auto) [place] % (Auto) [place] # PT INR POC ABG pH POC ABG pCO2 POC ABG pO2 Potassium Chloride Carbon Dioxide BUN Creatinine Glucose POC Glucose 168 H 135 H Lactic Acid Calcium Total Bilirubin Direct Bilirubin AST Alkaline Phosphatase Total Protein Albumin Ur Specific [place] Urine WBC (Auto) Crossmatch 03/09/19 03/09/19 03/09/19 10:24 10:24 11:15 WBC RBC Hgb Hct MCHC RDW Plt Count Lymph % (Auto) [place] % (Auto) [place] # PT 18.1 H INR 1.54 H POC ABG pH POC ABG pCO2 POC ABG pO2 Potassium 3.1 L Chloride 109.0 H Carbon Dioxide BUN Creatinine 0.6 L Glucose 135 H POC Glucose 152 H Lactic Acid Calcium 7.5 L Total Bilirubin Direct Bilirubin AST Alkaline Phosphatase Total Protein Albumin Ur Specific [place] Urine WBC (Auto) Crossmatch 03/09/19 16:46 WBC RBC Hgb Hct MCHC RDW Plt Count Lymph % (Auto) [place] % (Auto) [place] # PT INR POC ABG pH POC ABG pCO2 POC ABG pO2 Potassium Chloride Carbon Dioxide BUN Creatinine Glucose POC Glucose 145 H Lactic Acid Calcium Total Bilirubin Direct Bilirubin AST Alkaline Phosphatase Total Protein Albumin Ur Specific [place] Urine WBC (Auto) Crossmatch Chest x-ray: report reviewed (Reported unremarkable chest.), image reviewed Allied health notes reviewed: nursing
[2019-03-10] MEDS: D5/0.45NS 1,000 ML IV SCH ×2 (01:13→18:54)
[2019-03-10] MEDS: HumuLIN R SUB-Q SCH ×4 (02:05→18:07)
[2019-03-10] MEDS: FLAGYL 500 MG/100 ML 500 MG/100 ML BAG IV SCH (05:33)
[2019-03-10 05:47] LABS: Basophils % (Auto) 0.9 % (0.0-1.8); Eosinophils # (Auto) 0.2 K/mm3 (0.0-0.4); Eosinophils % (Auto) 5.1 % (0.0-4.3); Hematocrit 26.1 % (35.5-45.6); Hemoglobin 9.2 gm/dl (11.8-15.2); Lymphocytes # (Auto) 0.7 K/mm3 (1.2-5.4); Lymphocytes % (Auto) 23.1 % (13.4-35.0); Mean Corpuscular HGB Conc 35 % (32-34); Mean Corpuscular Volume 88 fl (84-94); Monocytes # (Auto) 0.5 K/mm3 (0.0-0.8); Monocytes % (Auto) 15.1 % (0.0-7.3); Platelet Count 103 K/mm3 (140-440); Red Blood Count 2.96 M/mm3 (3.65-5.03); Red Cell Distribution Width 16.4 % (13.2-15.2)
[2019-03-10 06:14] LABS: BUN/Creatinine Ratio 15; Blood Urea Nitrogen 9 mg/dL (9-20); Calcium 7.8 mg/dL (8.4-10.2); Hemolysis Index 4
[2019-03-10] MEDS: PROVENTIL IH SCH ×3 (09:00→21:04)
[2019-03-10] MEDS: KCL 10MEQ/100ML 10 MEQ/100 ML BAG IV SCH ×2 (10:21→11:18)
--- NOTE | 2019-03-10 10:41 | Gastroenterology Progress Note ---
<ARI VILLAR - Last Filed: 03/10/19 10:43> Assessment and Plan 1.GI bleed/melena 2.H/O cirrhosis and varices (s/p banding last year) -H/H 9.2/26.1-stable -continue to monitor H/H and transfuse as needed -no active signs of bleeding -ammonia WNL -s/p EGD with banding 2/2 variceal bleed (Has esophageal and gastric varices, but bled from esophagus) -continue nadolol as tolerated -continue antibiotics for SBP prophylaxis x total of 7 days (may DC on PO cipro 500mg PO BID) -continue PPI -cirrhosis-2/2 ETOH and possibly fatty liver -limit opiates and sedatives -okay to start on soft diet as tolerated (would not advance past soft diet) -continue supportive care -will need to follow up closely as an outpatient -if rebleeds, recommend repeat emergent EGD with attempt to reband, however may need to try and arrange for transfer for [facility] if possible Subjective Date of service: 03/10/19 Principal diagnosis: GI bleed Interval history: Patient remains lethargic upon exam but no acute distress noted. No active signs of bleeding. Objective - Constitutional Vitals: Temp Pulse Resp BP Pulse Ox 99.2 F 88 18 128/75 99 03/10/19 05:08 03/10/19 09:10 03/10/19 09:10 03/10/19 05:08 03/10/19 09:28 General appearance: no acute distress, other (lethargic) - Respiratory Respiratory effort: normal - Cardiovascular Rhythm: regular - Gastrointestinal General gastrointestinal: Present: soft, non-distended, normal bowel sounds - Labs CBC & Chem 7: 03/10/19 05:27 03/10/19 05:27 Labs: Laboratory Results - last 24 hr 03/09/19 03/09/19 03/09/19 10:24 10:24 10:24 WBC 3.9 L RBC 3.03 L Hgb 9.2 L Hct 26.4 L MCV 87 MCH 30 MCHC 35 H RDW 15.9 H Plt Count 101 L Lymph % (Auto) [place] % (Auto) Eos % (Auto) Baso % (Auto) Lymph # [place] # Eos # Baso # Seg Neutrophils % Seg Neutrophils # PT INR Sodium 145 Potassium 3.1 L Chloride 109.0 H Carbon Dioxide 24 Anion Gap 15 BUN 10 Creatinine 0.6 L Estimated GFR > 60 BUN/Creatinine Ratio 17 Glucose 135 H POC Glucose Calcium 7.5 L Ammonia 53.0 03/09/19 03/09/19 03/09/19 10:24 11:15 16:46 WBC RBC Hgb Hct MCV MCH MCHC RDW Plt Count Lymph % (Auto) [place] % (Auto) Eos % (Auto) Baso % (Auto) Lymph # [place] # Eos # Baso # Seg Neutrophils % Seg Neutrophils # PT 18.1 H INR 1.54 H Sodium Potassium Chloride Carbon Dioxide Anion Gap BUN Creatinine Estimated GFR BUN/Creatinine Ratio Glucose POC Glucose 152 H 145 H Calcium Ammonia 03/09/19 03/10/19 03/10/19 22:11 02:07 05:27 WBC 3.2 L RBC 2.96 L Hgb 9.2 L Hct 26.1 L MCV 88 MCH 31 MCHC 35 H RDW 16.4 H Plt Count 103 L Lymph % (Auto) 23.1 [place] % (Auto) 15.1 H Eos % (Auto) 5.1 H Baso % (Auto) 0.9 Lymph # 0.7 L [place] # 0.5 Eos # 0.2 Baso # 0.0 Seg Neutrophils % 55.8 Seg Neutrophils # 1.8 PT INR Sodium Potassium Chloride Carbon Dioxide Anion Gap BUN Creatinine Estimated GFR BUN/Creatinine Ratio Glucose POC Glucose 150 H 155 H Calcium Ammonia 03/10/19 03/10/19 05:27 08:24 WBC RBC Hgb Hct MCV MCH MCHC RDW Plt Count Lymph % (Auto) [place] % (Auto) Eos % (Auto) Baso % (Auto) Lymph # [place] # Eos # Baso # Seg Neutrophils % Seg Neutrophils # PT INR Sodium 146 H Potassium 3.2 L Chloride 109.7 H Carbon Dioxide 25 Anion Gap 15 BUN 9 Creatinine 0.6 L Estimated GFR > 60 BUN/Creatinine Ratio 15 Glucose 128 H POC Glucose 150 H Calcium 7.8 L Ammonia <JUAN NEWTON - Last Filed: 03/10/19 23:22> Assessment and Plan Patient seen and examined. I agree with the advanced practitioner's assessment and plan with the following additions: Stable Hgb and no bleeding may start soft diet Regarding mental status, please avoid all opiates and all benzo's and I will start on lactulose though more likely his lethargy is related to the medications he has gotten and his decreased clearance of said meds due to his impaired liver function - Patient Problems (1) Hyperglycemia Current Visit: Yes Status: Acute (2) Sepsis Current Visit: Yes Status: Acute Qualifiers: Sepsis type: sepsis due to unspecified organism Qualified Code(s): A41.9 - Sepsis, unspecified organism (3) Esophageal varices with bleeding Current Visit: Yes Status: Acute (4) Gastric varices without bleeding Current Visit: Yes Status: Acute (5) Alcoholic cirrhosis of liver without ascites Current Visit: Yes Status: Acute Objective - Constitutional Vitals: Temp Pulse Resp BP Pulse Ox 99.1 F 90 20 120/69 92 03/10/19 17:55 03/10/19 21:25 03/10/19 21:25 03/10/19 17:55 03/10/19 21:06 - Labs CBC & Chem 7: 03/10/19 05:27 03/10/19 05:27 Labs: Laboratory Results - last 24 hr 03/10/19 03/10/19 03/10/19 02:07 05:27 05:27 WBC 3.2 L RBC 2.96 L Hgb 9.2 L Hct 26.1 L MCV 88 MCH 31 MCHC 35 H RDW 16.4 H Plt Count 103 L Lymph % (Auto) 23.1 [place] % (Auto) 15.1 H Eos % (Auto) 5.1 H Baso % (Auto) 0.9 Lymph # 0.7 L [place] # 0.5 Eos # 0.2 Baso # 0.0 Seg Neutrophils % 55.8 Seg Neutrophils # 1.8 Sodium 146 H Potassium 3.2 L Chloride 109.7 H Carbon Dioxide 25 Anion Gap 15 BUN 9 Creatinine 0.6 L Estimated GFR > 60 BUN/Creatinine Ratio 15 Glucose 128 H POC Glucose 155 H Calcium 7.8 L 03/10/19 03/10/19 03/10/19 08:24 11:48 16:32 WBC RBC Hgb Hct MCV MCH MCHC RDW Plt Count Lymph % (Auto) [place] % (Auto) Eos % (Auto) Baso % (Auto) Lymph # [place] # Eos # Baso # Seg Neutrophils % Seg Neutrophils # Sodium Potassium Chloride Carbon Dioxide Anion Gap BUN Creatinine Estimated GFR BUN/Creatinine Ratio Glucose POC Glucose 150 H 199 H 162 H Calcium
[2019-03-10] MEDS: LEVAQUIN 750MG/150ML 750 MG/150 ML BAG IV SCH (11:17)
[2019-03-10] MEDS: PROTONIX IV SCH ×2 (11:17→22:11)
[2019-03-10] MEDS: SODIUM CHLORIDE FLUSH SYRINGE 10 ML IV SCH ×2 (11:18→23:30)
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
[2019-03-10] MEDS ORDERED: VITAMIN K (ADULT ONLY) SUB-Q ONE (12:45)
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
[2019-03-11] MEDS: HumuLIN R SUB-Q SCH (00:24)
[2019-03-11] MEDS: CEPHULAC PO SCH ×3 (00:25→13:33)
[2019-03-11] MEDS: PROVENTIL IH SCH ×2 (08:36→14:35)
[2019-03-11 10:27] LABS: Hematocrit 29.6 % (35.5-45.6); Mean Corpuscular HGB Conc 34 % (32-34); Mean Corpuscular Volume 89 fl (84-94); Platelet Count 105 K/mm3 (140-440); Red Blood Count 3.34 M/mm3 (3.65-5.03); Red Cell Distribution Width 16.3 % (13.2-15.2)
[2019-03-11 10:30] LABS: BUN/Creatinine Ratio 14; Blood Urea Nitrogen 7 mg/dL (9-20); Calcium 7.4 mg/dL (8.4-10.2); Hemolysis Index 5
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
[2019-03-11] MEDS: PROTONIX IV SCH (11:29)
--- NOTE | 2019-03-11 12:01 | Gastroenterology Progress Note ---
<ARI VILLAR - Last Filed: 03/11/19 12:01> Assessment and Plan 1.GI bleed/melena 2.H/O cirrhosis and varices (s/p banding last year) -H/H 10.0/29.6-trending up -continue to monitor H/H and transfuse as needed -no active signs of bleeding -ammonia WNL -s/p EGD with banding 2/2 variceal bleed (Has esophageal and gastric varices, but bled from esophagus) -continue nadolol as tolerated -continue antibiotics for SBP prophylaxis x total of 7 days (may DC on PO cipro 500mg PO BID) -continue PPI -cirrhosis-2/2 ETOH and possibly fatty liver -mental status improving- (likely 2/2 medications such as Ativan and decreased clearance of said meds due to his impaired liver function)-avoid opiates and sedatives/continue lactulose -continue soft diet (would not advance past soft diet) -continue supportive care -alcohol cessation discussed/encouraged with patient -patient will need to follow up closely in clinic as an outpatient upon discharge -if rebleeds, recommend repeat emergent EGD with attempt to reband, however may need to try and arrange for transfer for TIPS if possible -no further recommendations per GI standpoint at this time. Will sign off, please call if needed. Subjective Date of service: 03/11/19 Principal diagnosis: GI bleed Interval history: Patient more alert today. No acute distress or active signs of bleeding o vernight or this am per nursing. Objective - Constitutional Vitals: Temp Pulse Resp BP Pulse Ox 98.7 F 95 H 18 127/72 95 03/11/19 05:19 03/11/19 08:56 03/11/19 08:56 03/11/19 05:19 03/11/19 08:40 General appearance: no acute distress - Respiratory Respiratory effort: normal - Cardiovascular Rhythm: regular - Gastrointestinal General gastrointestinal: Present: soft, non-tender, non-distended, normal bowel sounds - Labs CBC & Chem 7: 03/11/19 09:09 03/11/19 09:09 Labs: Laboratory Results - last 24 hr 03/10/19 03/10/19 03/11/19 16:32 23:43 06:33 WBC RBC Hgb Hct MCV MCH MCHC RDW Plt Count Sodium Potassium Chloride Carbon Dioxide Anion Gap BUN Creatinine Estimated GFR BUN/Creatinine Ratio Glucose POC Glucose 162 H 176 H 120 H Calcium 03/11/19 03/11/19 03/11/19 09:09 09:09 11:40 WBC 3.1 L RBC 3.34 L Hgb 10.0 L Hct 29.6 L MCV 89 MCH 30 MCHC 34 RDW 16.3 H Plt Count 105 L Sodium 143 Potassium 3.1 L Chloride 107.8 H Carbon Dioxide 25 Anion Gap 13 BUN 7 L Creatinine 0.5 L Estimated GFR > 60 BUN/Creatinine Ratio 14 Glucose 126 H POC Glucose 133 H Calcium 7.4 L <JUAN NEWTON - Last Filed: 03/11/19 18:14> Assessment and Plan Patient seen and examined. I have reviewed the advanced practitioners assessme nt and plan and agree with it with the following additions: Patient still with no clinical bleeding, will sign off - Patient Problems (1) Hyperglycemia Current Visit: Yes Status: Acute (2) Sepsis Current Visit: Yes Status: Acute Qualifiers: Sepsis type: sepsis due to unspecified organism Qualified Code(s): A41.9 - Sepsis, unspecified organism (3) Esophageal varices with bleeding Current Visit: Yes Status: Acute (4) Gastric varices without bleeding Current Visit: Yes Status: Acute (5) Alcoholic cirrhosis of liver without ascites Current Visit: Yes Status: Acute Objective - Constitutional Vitals: Temp Pulse Resp BP Pulse Ox 98.8 F 88 22 123/76 96 03/11/19 16:53 03/11/19 16:53 03/11/19 16:53 03/11/19 16:53 03/11/19 16:53 - Labs CBC & Chem 7: 03/11/19 09:09 03/11/19 09:09 Labs: Laboratory Results - last 24 hr 03/10/19 03/11/19 03/11/19 23:43 06:33 09:09 WBC 3.1 L RBC 3.34 L Hgb 10.0 L Hct 29.6 L MCV 89 MCH 30 MCHC 34 RDW 16.3 H Plt Count 105 L Sodium Potassium Chloride Carbon Dioxide Anion Gap BUN Creatinine Estimated GFR BUN/Creatinine Ratio Glucose POC Glucose 176 H 120 H Calcium 03/11/19 03/11/19 03/11/19 09:09 11:40 17:02 WBC RBC Hgb Hct MCV MCH MCHC RDW Plt Count Sodium 143 Potassium 3.1 L Chloride 107.8 H Carbon Dioxide 25 Anion Gap 13 BUN 7 L Creatinine 0.5 L Estimated GFR > 60 BUN/Creatinine Ratio 14 Glucose 126 H POC Glucose 133 H 295 H Calcium 7.4 L
[2019-03-11] MEDS: SODIUM CHLORIDE FLUSH SYRINGE 10 ML IV SCH (13:31)
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
[2019-03-11 17:47] VITALS: BP 123/76
== END 2019-03-11 19:25 | disposition home or self-care (01) | DRG 871 ==
LOC: ED 00:25 → SUATTDRO 00:25 → EEVIPCON 07:07 → 3A 07:07 → CC1 08:59 → 3A 03-08 21:55
PROVIDERS: ADMIT Internal Medicine; ATTEND Internal Medicine
PROC: 5A1945Z Respiratory Ventilation, 24-96 Consecutive Hours (ICD-10-PCS; principal; 2019-03-04)
PROC: 0BH17EZ Insertion of Endotracheal Airway into Trachea, Via Natural or Artificial Opening (ICD-10-PCS; 2019-03-04)
PROC: 06L38CZ Occlusion of Esophageal Vein with Extraluminal Device, Via Natural or Artificial Opening Endoscopic (ICD-10-PCS; 2019-03-04)
PROC: 30233N1 Transfusion of Nonautologous Red Blood Cells into Peripheral Vein, Percutaneous Approach (ICD-10-PCS; 2019-03-04)
PROC: 0DC58ZZ Extirpation of Matter from Esophagus, Via Natural or Artificial Opening Endoscopic (ICD-10-PCS; 2019-03-04)
PROC: 30233K1 Transfusion of Nonautologous Frozen Plasma into Peripheral Vein, Percutaneous Approach (ICD-10-PCS; 2019-03-05)
PROC: 4A033R1 Measurement of Arterial Saturation, Peripheral, Percutaneous Approach (ICD-10-PCS; 2019-03-05)
PROC: 5A09357 Assistance with Respiratory Ventilation, Less than 24 Consecutive Hours, Continuous Positive Airway Pressure (ICD-10-PCS; 2019-03-09)
DX: A41.9 Sepsis, unspecified organism (principal); J96.01 Acute respiratory failure with hypoxia; R57.1 Hypovolemic shock; I85.11 Secondary esophageal varices with bleeding; D62 Acute posthemorrhagic anemia; N17.9 Acute kidney failure, unspecified; D68.9 Coagulation defect, unspecified; K76.6 Portal hypertension; K52.9 Noninfective gastroenteritis and colitis, unspecified; K31.89 Other diseases of stomach and duodenum; E11.9 Type 2 diabetes mellitus without complications; T39.395A Adverse effect of other nonsteroidal anti-inflammatory drugs [NSAID], initial encounter; E66.9 Obesity, unspecified; D69.6 Thrombocytopenia, unspecified; K21.9 Gastro-esophageal reflux disease without esophagitis; I86.4 Gastric varices; K70.30 Alcoholic cirrhosis of liver without ascites; E87.6 Hypokalemia; Y92.89 Other specified places as the place of occurrence of the external cause; Z82.49 Family history of ischemic heart disease and other diseases of the circulatory system; Z68.34 Body mass index [BMI] 34.0-34.9, adult; Z79.84 Long term (current) use of oral hypoglycemic drugs
CPT/HCPCS: 36415; 36430; 36600; 71045; 74177; 80048; 80053; 80076; 81001; 82140; 82803; 82962; 83690; 85014; 85018; 85025; 85027; 85610; 85730; 86140; 86850; 86900; 86901; 86920; 87040; 87086; 93005; 93010; 94002; 94003; 94640; 94660; 94760; 96365; 96366; 96367; 96372; 96375; G0378; C9113; J0500; J1815; J1885; J1956; J2060; J2250; J2354; J2405; J2704; J3010; J3430; J3480; J7030; J7040; P9016; P9017; Q9967

== ENCOUNTER 2019-03-14 02:19 | Emergency (ER) | payer OTHER ==
[2019-03-14] MEDS ORDERED: MORPHINE IV ONE ×2 (02:46→05:18)
[2019-03-14] MEDS ORDERED: ZOFRAN IV ONE (02:46)
[2019-03-14 02:47] LABS: Basophils # (Auto) 0.1 K/mm3 (0.0-0.1); Basophils % (Auto) 0.8 % (0.0-1.8); Eosinophils # (Auto) 0.3 K/mm3 (0.0-0.4); Eosinophils % (Auto) 4.4 % (0.0-4.3); Hematocrit 32.5 % (35.5-45.6); Hemoglobin 10.8 gm/dl (11.8-15.2); Lymphocytes # (Auto) 1.6 K/mm3 (1.2-5.4); Lymphocytes % (Auto) 22.7 % (13.4-35.0); Mean Corpuscular HGB Conc 33 % (32-34); Mean Corpuscular Volume 88 fl (84-94); Monocytes # (Auto) 0.8 K/mm3 (0.0-0.8); Monocytes % (Auto) 12.3 % (0.0-7.3); Platelet Count 165 K/mm3 (140-440); Red Blood Count 3.69 M/mm3 (3.65-5.03); Red Cell Distribution Width 16.6 % (13.2-15.2)
--- NOTE | 2019-03-14 02:50 | Emergency Department Report ---
ED Abdominal Pain HPI - General Chief Complaint: Nausea/Vomiting/Diarrhea Stated Complaint: STOMACH PAIN/ EMESIS/POST SURGERY Time Seen by Provider: 03/14/19 02:44 Source: patient Mode of arrival: Wheelchair Limitations: No Limitations - History of Present Illness Initial Comments: 48-year-old male with history of liver cirrhosis, ascites is a CD with complaint of abdominal pain, nausea and vomiting. Patient states he underwent esophageal variceal banding 2 days ago. Patient states yesterday he began having right upper quadrant pain. Reports previous LUQ pain, but never right-sided. Also reports difficulty urinating, and have a bowel movement. Patient states that he urinates only a small amount at a time. Patient reports having a bowel movement this morning, but states it was also only a small amount. Patient reports she is currently on a liquid diet. MD Complaint: abdominal pain -: days(s) (1) Location: RUQ Migration to: no migration Severity: moderate Quality: aching Consistency: constant Improves With: nothing Worsens With: nothing Associated Symptoms: nausea, vomiting, constipation - Related Data Previous Rx's Medication Instructions Recorded Last Taken Type Lactulose [Cephulac] 20 gm PO BID 14 Days oral.liqd 03/11/19 Unknown Rx Multivitamin Tab [Multiple Vitamin 1 each PO QDAY #30 tablet 03/11/19 Unknown Rx TAB (Theragran)] Nadolol [Corgard] 20 mg PO QDAY #30 tablet 03/11/19 Unknown Rx Pantoprazole [Protonix] 40 mg PO BID #60 tablet 03/11/19 Unknown Rx Ondansetron [Zofran Odt] 4 mg PO Q8HR PRN #20 tab.rapdis 03/14/19 Unknown Rx traMADol [Ultram] 50 mg PO Q6HR PRN #7 tablet 03/14/19 Unknown Rx Allergies Allergy/AdvReac Type Severity Reaction Status Date / Time No Known Allergies Allergy Verified 03/14/19 02:28 ED Review of Systems ROS: Stated complaint: STOMACH PAIN/ EMESIS/POST SURGERY Other details as noted in HPI Comment: All other systems reviewed and negative Constitutional: denies: fever Gastrointestinal: abdominal pain, nausea, vomiting, constipation Genitourinary: other (reports difficulty urinating) ED Past Medical Hx - Past Medical History Previous Medical History?: Yes Hx Hypertension: No Hx Heart Attack/AMI: No Hx Congestive Heart Failure: No Hx Diabetes: Yes Hx Renal Disease: Yes Hx Asthma: No Hx COPD: No Additional medical history: Cirrhosis of Liver, - Surgical History Past Surgical History?: Yes Additional Surgical History: stomach SX, - Social History Smoking Status: Current Some Day Smoker Substance Use Type: None - Medications Home Medications: Home Medications Medication Instructions Recorded Confirmed Last Taken Type Lactulose [Cephulac] 20 gm PO BID 14 Days oral.liqd 03/11/19 Unknown Rx Multivitamin Tab [Multiple Vitamin 1 each PO QDAY #30 tablet 03/11/19 Unknown Rx TAB (Theragran)] Nadolol [Corgard] 20 mg PO QDAY #30 tablet 03/11/19 Unknown Rx Pantoprazole [Protonix] 40 mg PO BID #60 tablet 03/11/19 Unknown Rx Ondansetron [Zofran Odt] 4 mg PO Q8HR PRN #20 tab.rapdis 03/14/19 Unknown Rx traMADol [Ultram] 50 mg PO Q6HR PRN #7 tablet 03/14/19 Unknown Rx ED Physical Exam - General Limitations: No Limitations General appearance: alert, in no apparent distress - Head Head exam: Present: atraumatic, normocephalic - Eye Eye exam: Present: normal appearance, PERRL, EOMI - ENT ENT exam: Present: mucous membranes moist - Neck Neck exam: Present: normal inspection - Respiratory Respiratory exam: Present: normal lung sounds bilaterally. Absent: respiratory distress - Cardiovascular Cardiovascular Exam: Present: regular rate, normal rhythm - GI/Abdominal GI/Abdominal exam: Present: soft, distended (mild), tenderness (RUQ and suprapubic tenderness present) - Extremities Exam Extremities exam: Present: other (2+ pitting edema present) - Neurological Exam Neurological exam: Present: alert, oriented X3 - Psychiatric Psychiatric exam: Present: normal affect, normal mood - Skin Skin exam: Present: warm, dry, intact ED Course Vital Signs 03/14/19 03/14/19 03/14/19 02:30 02:45 03:12 Temperature 98.2 F Pulse Rate 72 Respiratory 18 16 Rate Blood Pressure 120/62 Blood Pressure 130/76 [Right] O2 Sat by Pulse 98 98 Oximetry 03/14/19 03/14/19 03/14/19 03:15 03:31 03:45 Temperature Pulse Rate 73 77 71 Respiratory 17 14 14 Rate Blood Pressure 130/73 130/76 Blood Pressure [Right] O2 Sat by Pulse 99 99 98 Oximetry 03/14/19 03/14/19 03/14/19 03:52 04:00 04:15 Temperature Pulse Rate 71 69 Respiratory 18 18 18 Rate Blood Pressure 130/80 130/76 Blood Pressure [Right] O2 Sat by Pulse 97 97 Oximetry 03/14/19 03/14/19 04:31 04:45 Temperature Pulse Rate 73 68 Respiratory 18 13 Rate Blood Pressure 130/76 130/76 Blood Pressure [Right] O2 Sat by Pulse 99 97 Oximetry - Reevaluation(s) Reevaluation #1: 03/14/19 03:51 Pt refusing Kim. Bladder scan shows only 190 mL of urine. ED Medical Decision Making - Lab Data Result diagrams: 03/14/19 02:33 03/14/19 02:33 - Radiology Data Radiology results: report reviewed, image reviewed - Medical Decision Making - reports variceal banding 2 days ago, however, it was actually performed 03/04, 10 days ago - complains of nausea and RUQ pain, which is new - reported difficulty urinating, however, able to give urine sample after refusing Kim - labs unremarkable - abd series normal, no free air or obstruction - abdominal US also unremarkable - vitals normal Critical care attestation.: If time is entered above; I have spent that time in minutes in the direct care of this critically ill patient, excluding procedure time. ED Disposition Clinical Impression: Abdominal pain, RUQ, Nausea & vomiting Disposition: - TO HOME OR SELFCARE Is pt being admited?: No Condition: Stable Instructions: Acute Nausea and Vomiting (ED), Abdominal Pain (ED) Referrals: [facility] [Provider Group] - 3-5 Days
[2019-03-14 03:09] LABS: Alanine Aminotransferase 43 units/L (7-56); Albumin 2.7 g/dL (3.9-5); BUN/Creatinine Ratio 13; Blood Urea Nitrogen 8 mg/dL (9-20); Calcium 7.8 mg/dL (8.4-10.2); Hemolysis Index 2
--- NOTE | 2019-03-14 03:38 | XRay Report ---
PROCEDURE: XR ABD SERIES W CXR 1V TECHNIQUE: Abdominal series complete, including supine and upright AP views of the abdomen and front al chest. HISTORY: pain COMPARISONS: None . FINDINGS: Heart: Normal. Mediastinum/Vessels: Normal. Lungs/Pleural space: Normal. Bowel gas pattern: Nonobstructive . Masses or calcifications: None . Bony structures: No acute osseous abnormality . Other: No free intraperitoneal air . IMPRESSION: No acute abnormality. This document is electronically signed by Erma Irene DO., March 14 2019 03:36:17 AM ET
--- NOTE | 2019-03-14 05:01 | Ultrasound Report ---
PROCEDURE: US ABDOMEN COMPLETE TECHNIQUE: Real-time sonography in multiple planes of the abdomen was performed with image documenta tion. HISTORY: RUQ, suprapubic pain COMPARISONS: None . FINDINGS: Liver: Normal size and echotexture with no evidence of cystic or solid mass lesions. Gallbladder: Fluid filled. No gallstones, wall thickening, pericholecystic fluid, or sonographic Mur phy's sign. Intrahepatic bile ducts: Normal caliber . Extrahepatic bile ducts: Normal caliber. Pancreas: Normal as visualized with suboptimal depiction of the pancreatic tail. Aorta: Visualized portions appear normal. IVC: Visualized portions appear normal. RIGHT kidney: Normal echotexture. No focal renal mass, calculus, or hydronephrosis. Length: 12.8 c m. LEFT kidney: Normal echotexture. No focal renal mass, calculus, or hydronephrosis. Length: 13.7 cm . Spleen: Normal size and echotexture. No focal lesions. Intraperitoneal fluid: None . Other: None . IMPRESSION: There is no evidence of intestinal or urinary tract obstruction. This document is electronically signed by Erma Irene DO., March 14 2019 04:59:06 AM ET
[2019-03-14 05:33] LABS: Bacteria,Urine 1+ /HPF (Negative); Bilirubin,Urine NEG (Negative); Blood,Urine NEG (Negative); Color,Urine Yellow (Yellow); Mucus,Urine 1+ /HPF; Protein,Urine <15 mg/dL mg/dL (Negative); Urobilinogen,Urine < 2.0 mg/dL (<2.0)
[2019-03-14 06:10] VITALS: BP 119/75
== END 2019-03-14 06:27 | disposition home or self-care (01) ==
LOC: ED 02:19
DX: R10.11 Right upper quadrant pain (principal); R11.2 Nausea with vomiting, unspecified; K59.00 Constipation, unspecified; E11.9 Type 2 diabetes mellitus without complications; F17.200 Nicotine dependence, unspecified, uncomplicated
CPT/HCPCS: 36415; 74022; 76700; 80053; 81001; 83690; 85025; 96374; 96375; 96376; 99284; J2270; J2405

== ENCOUNTER 2019-10-30 11:42 | Inpatient (IN) | payer OTHER ==
--- NOTE | 2019-10-30 11:59 | Event Note ---
ED Screening Note ED Screening Note: abdominal distension, bilateral LE edema for two days hx of cirrhosis states he was told he needs a liver transplant states he was admitted in the hospital at [facility] for 5 days for "an infection" had a paracentesis three years ago +SOB no hematochezia no melena This initial assessment/diagnostic orders/clinical plan/treatment(s) is/are subject to change based on patients health status, clinical progression and re- assessment by fellow clinical providers in the ED. Further treatment and workup at subsequent clinical providers discretion. Patient/guardian urged not to elope from the ED as their condition may be serious if not clinically assessed and managed. Initial orders include: labs, CXR
--- NOTE | 2019-10-30 12:28 | XRay Report ---
CHEST 2 VIEWS INDICATION / CLINICAL INFORMATION: MAIN: SOB FOR 2 DAYS. COMPARISON: 03/08/2019 FINDINGS: SUPPORT DEVICES: None. HEART / MEDIASTINUM: No significant abnormality. LUNGS / PLEURA: Obliquely oriented linear densities in both lower lungs are new and represent subsegm ental atelectasis. No acute interstitial or airspace lung disease. No pneumothorax. ADDITIONAL FINDINGS: No significant additional findings. IMPRESSION: 1. Bibasilar subsegmental atelectasis. Signer Name: Dexter Davis MD Signed: 10/30/2019 12:24 PM Workstation Name: [id number]
[2019-10-30 13:16] LABS: Basophils % (Auto) 0.8 % (0.0-1.8); Eosinophils # (Auto) 0.1 K/mm3 (0.0-0.4); Eosinophils % (Auto) 2.9 % (0.0-4.3); Hematocrit 32.1 % (35.5-45.6); Hemoglobin 10.8 gm/dl (11.8-15.2); Lymphocytes # (Auto) 1.4 K/mm3 (1.2-5.4); Lymphocytes % (Auto) 30.8 % (13.4-35.0); Mean Corpuscular HGB Conc 34 % (32-34); Mean Corpuscular Volume 87 fl (84-94); Monocytes # (Auto) 0.4 K/mm3 (0.0-0.8); Monocytes % (Auto) 10.1 % (0.0-7.3); Red Blood Count 3.71 M/mm3 (3.65-5.03); Red Cell Distribution Width 18.9 % (13.2-15.2)
[2019-10-30 13:32] LABS: Platelet Count 88 K/mm3 (140-440)
[2019-10-30 13:38] LABS: Alanine Aminotransferase 29 units/L (7-56); Albumin 2.6 g/dL (3.9-5); BUN/Creatinine Ratio 16; Blood Urea Nitrogen 8 mg/dL (9-20); Calcium 8.4 mg/dL (8.4-10.2); Hemolysis Index 6
--- NOTE | 2019-10-30 13:44 | Emergency Department Report ---
ED General Adult HPI - General Chief complaint: Dyspnea/Respdistress Stated complaint: SOB/STOMACH PAIN/SWELLING Time Seen by Provider: 10/30/19 11:55 Source: patient Mode of arrival: Wheelchair Limitations: No Limitations - History of Present Illness Initial comments: 49-year-old male with history of alcoholic liver cirrhosis, gastric varices, esophageal varices status post banding, presents to ED with complaint of worsening abdominal distention over the last 2 weeks. The patient states over the last 2 days he has had shortness of breath and worsening of his bilateral lower extremity edema. Patient states he is unable to afford his water pill and therefore has not been taking it. Patient reports he has had paracentesis before, approximately 3 years ago. Patient denies fever, nausea or vomiting, bloody stool. -: week(s) (2) Location: abdomen Quality: other (distended) Consistency: constant Improves with: medication Associated Symptoms: shortness of breath. denies: chest pain, fever/chills, nausea/vomiting Treatments Prior to Arrival: none - Related Data Previous Rx's Medication Instructions Recorded Last Taken Type Lactulose [Cephulac] 20 gm PO BID 14 Days oral.liqd 03/11/19 Unknown Rx Multivitamin Tab [Multiple Vitamin 1 each PO QDAY #30 tablet 03/11/19 Unknown Rx TAB (Theragran)] Nadolol [Corgard] 20 mg PO QDAY #30 tablet 03/11/19 Unknown Rx Pantoprazole [Protonix] 40 mg PO BID #60 tablet 03/11/19 Unknown Rx Ondansetron [Zofran Odt] 4 mg PO Q8HR PRN #20 tab.rapdis 03/14/19 Unknown Rx traMADoL [Ultram] 50 mg PO Q6HR PRN #7 tablet 03/14/19 Unknown Rx Allergies Allergy/AdvReac Type Severity Reaction Status Date / Time No Known Allergies Allergy Verified 03/14/19 02:28 ED Review of Systems ROS: Stated complaint: SOB/STOMACH PAIN/SWELLING Other details as noted in HPI Comment: All other systems reviewed and negative Constitutional: denies: chills, fever Respiratory: shortness of breath Cardiovascular: denies: chest pain Gastrointestinal: abdominal pain. denies: vomiting, hematemesis, melena, hematochezia Musculoskeletal: other (reports BLE swelling) ED Past Medical Hx - Past Medical History Previous Medical History?: Yes Hx Hypertension: No Hx Heart Attack/AMI: No Hx Congestive Heart Failure: No Hx Diabetes: Yes Hx Renal Disease: Yes Hx Asthma: No Hx COPD: No Additional medical history: Cirrhosis of Liver, - Surgical History Past Surgical History?: Yes Additional Surgical History: stomach SX, - Social History Smoking Status: Never Smoker Substance Use Type: None - Medications Home Medications: Home Medications Medication Instructions Recorded Confirmed Last Taken Type Lactulose [Cephulac] 20 gm PO BID 14 Days oral.liqd 03/11/19 Unknown Rx Multivitamin Tab [Multiple Vitamin 1 each PO QDAY #30 tablet 03/11/19 Unknown Rx TAB (Theragran)] Nadolol [Corgard] 20 mg PO QDAY #30 tablet 03/11/19 Unknown Rx Pantoprazole [Protonix] 40 mg PO BID #60 tablet 03/11/19 Unknown Rx Ondansetron [Zofran Odt] 4 mg PO Q8HR PRN #20 tab.rapdis 03/14/19 Unknown Rx traMADoL [Ultram] 50 mg PO Q6HR PRN #7 tablet 03/14/19 Unknown Rx ED Physical Exam - General Limitations: No Limitations General appearance: alert, in no apparent distress - Head Head exam: Present: atraumatic, normocephalic - Eye Eye exam: Present: normal appearance, EOMI, other (slightly icteric sclera) - ENT ENT exam: Present: mucous membranes moist - Neck Neck exam: Present: normal inspection - Respiratory Respiratory exam: Present: normal lung sounds bilaterally. Absent: respiratory distress - Cardiovascular Cardiovascular Exam: Present: regular rate, normal rhythm - GI/Abdominal GI/Abdominal exam: Present: distended. Absent: tenderness - Extremities Exam Extremities exam: Present: other (2+ pitting edema BLE) - Neurological Exam Neurological exam: Present: alert, oriented X3 - Psychiatric Psychiatric exam: Present: normal affect, normal mood - Skin Skin exam: Present: warm, dry, intact, normal color ED Course Vital Signs 10/30/19 11:55 Temperature 98.8 F Pulse Rate 102 H Respiratory 20 Rate Blood Pressure 107/69 O2 Sat by Pulse 98 Oximetry ED Medical Decision Making - Lab Data Result diagrams: 10/30/19 12:49 10/30/19 12:49 Critical care attestation.: If time is entered above; I have spent that time in minutes in the direct care of this critically ill patient, excluding procedure time. ED Disposition Clinical Impression: Liver cirrhosis, Abdominal distension, Edema, lower extremity, Shortness of breath Disposition: DC-09 OP ADMIT IP TO THIS HOSP Is pt being admited?: Yes Condition: Stable Time of Disposition: 14:31
[2019-10-30] MEDS ORDERED: PANTOPRAZOLE 40 MG INJ IV ONE ×2 (14:19→14:23)
[2019-10-30] MEDS ORDERED: ONDANSETRON 4 MG ODT TAB PO PRN (20:20)
[2019-10-30] MEDS ORDERED: MORPHINE 2 MG/1 ML INJ IV PRN (20:24)
[2019-10-30] MEDS ORDERED: HYDROmorphone 1 MG/1 ML INJ IV PRN (20:24)
[2019-10-30] MEDS ORDERED: ONDANSETRON 4 MG/2 ML INJ IV PRN (20:24)
[2019-10-30] MEDS ORDERED: ACETAMINOPHEN 325 MG TAB PO PRN (20:24)
[2019-10-30] MEDS: traMADol 50 MG TAB PO PRN (20:39)
[2019-10-30] MEDS: LACTULOSE 20 GM/30 ML ORAL LIQD PO SCH (21:18)
[2019-10-30] MEDS: PANTOPRAZOLE 40 MG TAB PO SCH (21:18)
[2019-10-30] MEDS: NADOLOL 20 MG TAB PO SCH ×2 (22:40→23:20)
--- NOTE | 2019-10-31 07:41 | History and Physical Report ---
History of Present Illness Date of examination: 10/30/19 Date of admission: 10/30/19 14:32 Chief complaint: Increasing abdominal distension History of present illness: 49-year-old male with history of alcoholic liver cirrhosis, gastric varices, esophageal varices status post banding, presents to ED with complaint of worsening abdominal distention over the last 2 weeks. The patient states over the last 2 days he has had shortness of breath and worsening of his bilateral lower extremity edema. Patient states he is unable to afford his water pill and therefore has not been taking it. Patient reports he has had paracentesis before, approximately 3 years ago. Patient denies fever, nausea or vomiting, bloody stool. Past Medical History Previous Medical History?: Yes Diabetes: Yes Renal Disease: Yes Additional medical history: Cirrhosis of Liver, Surgical History Past Surgical History?: Yes Additional Surgical History: stomach SX, Social History Smoking Status: Never Smoker Substance Use Type: None Family History Htn Medications Home Medications: Home Medications Medication Instructions Recorded Confirmed Last Taken Type Lactulose [Cephulac] 20 gm PO BID 14 Days oral.liqd 03/11/19 Unknown Rx Multivitamin Tab [Multiple Vitamin 1 each PO QDAY #30 tablet 03/11/19 Unknown Rx TAB (Theragran)] Nadolol [Corgard] 20 mg PO QDAY #30 tablet 03/11/19 Unknown Rx Pantoprazole [Protonix] 40 mg PO BID #60 tablet 03/11/19 Unknown Rx Ondansetron [Zofran Odt] 4 mg PO Q8HR PRN #20 tab.rapdis 03/14/19 Unknown Rx traMADoL [Ultram] 50 mg PO Q6HR PRN #7 tablet 03/14/19 Unknown Rx Review of Systems ROS: Stated complaint: SOB/STOMACH PAIN/SWELLING Other details as noted in HPI Comment: All other systems reviewed and negative Constitutional: denies: chills, fever Respiratory: shortness of breath Cardiovascular: denies: chest pain Gastrointestinal: abdominal pain. denies: vomiting, hematemesis, melena, hematochezia Musculoskeletal: other (reports BLE swelling) Medications and Allergies Allergies Allergy/AdvReac Type Severity Reaction Status Date / Time No Known Allergies Allergy Verified 03/14/19 02:28 Home Medications Medication Instructions Recorded Confirmed Last Taken Type Lactulose [Cephulac] 20 gm PO BID 14 Days oral.liqd 03/11/19 10/31/19 Unknown Rx Multivitamin Tab [Multiple Vitamin 1 each PO QDAY #30 tablet 03/11/19 10/31/19 Unknown Rx TAB (Theragran)] Nadolol [Corgard] 20 mg PO QDAY #30 tablet 03/11/19 10/31/19 Unknown Rx Pantoprazole [Protonix] 40 mg PO BID #60 tablet 03/11/19 10/31/19 Unknown Rx Ondansetron [Zofran Odt] 4 mg PO Q8HR PRN #20 tab.rapdis 03/14/19 10/31/19 Unknown Rx traMADoL [Ultram] 50 mg PO Q6HR PRN #7 tablet 03/14/19 10/31/19 Unknown Rx Ciprofloxacin [Ciprofloxacin ORAL 500 mg PO BID 10/31/19 10/31/19 Unknown History LIQ] Lantus VIAL 35 units SQ HS 10/31/19 10/31/19 Unknown History Active Meds: Active Medications Acetaminophen (Tylenol) 650 mg PO Q4H PRN PRN Reason: Pain MILD(1-3)/Fever >100.5/[place] Hydromorphone HCl (Dilaudid) 0.5 mg IV Q3H PRN PRN Reason: Pain , Severe (7-10) Lactulose (Cephulac) 20 gm PO BID [facility] Last Admin: 10/30/19 21:18 Dose: 20 gm Documented by: Morphine Sulfate (Morphine) 2 mg IV Q4H PRN PRN Reason: Pain, Moderate (4-6) Multivitamins (Theragran Tab) 1 each PO QDAY [facility] Nadolol (Corgard) 20 mg PO QDAY [facility] Last Admin: 10/30/19 23:20 Dose: 20 mg Documented by: Ondansetron HCl (Zofran Odt) 4 mg PO Q8HR PRN PRN Reason: Vomiting Ondansetron HCl (Zofran) 4 mg IV Q3H PRN PRN Reason: Nausea And Vomiting Pantoprazole Sodium (Protonix) 40 mg PO BID [facility] Last Admin: 10/30/19 21:18 Dose: 40 mg Documented by: Sodium Chloride (Sodium Chloride Flush Syringe 10 Ml) 10 ml IV BID [facility] Last Admin: 10/30/19 21:19 Dose: 10 ml Documented by: Sodium Chloride (Sodium Chloride Flush Syringe 10 Ml) 10 ml IV PRN PRN PRN Reason: LINE FLUSH Tramadol HCl (Ultram) 50 mg PO Q6HR PRN PRN Reason: PAIN Last Admin: 10/30/19 20:39 Dose: 50 mg Documented by: Exam - Constitutional Vitals: Temp Pulse Resp BP Pulse Ox 98.1 F 74 17 88/60 95 10/31/19 04:21 10/31/19 04:21 10/31/19 04:21 10/31/19 04:21 10/31/19 04:21 General appearance: Present: mild distress, well-nourished - EENT Eyes: Present: PERRL ENT: hearing intact, clear oral mucosa - Neck Neck: Present: supple, normal ROM - Respiratory Respiratory effort: normal Respiratory: bilateral: CTA - Cardiovascular Heart rate: 88 Rhythm: regular Heart Sounds: Present: S1 & S2. Absent: rub, click - Extremities Extremities: no ischemia, pulses symmetrical, No edema Extremity abnormal: edema (3 plus edema) Peripheral Pulses: within normal limits - Abdominal General gastrointestinal: Present: distended (Tense ascites), normal bowel sounds Male genitourinary: Present: normal - Integumentary Integumentary: Present: clear, warm, dry - Musculoskeletal Musculoskeletal: gait normal, strength equal bilaterally - Psychiatric Psychiatric: appropriate mood/affect, intact judgment & insight - Neurologic Neurologic: CNII-XII intact, moves all extremities Results - Labs CBC & Chem 7: 10/30/19 12:49 10/30/19 12:49 Labs: Laboratory Last Values WBC 4.4 K/mm3 (4.5-11.0) L 10/30/19 12:49 RBC 3.71 M/mm3 (3.65-5.03) 10/30/19 12:49 Hgb 10.8 gm/dl (11.8-15.2) L 10/30/19 12:49 Hct 32.1 % (35.5-45.6) L 10/30/19 12:49 MCV 87 fl (84-94) 10/30/19 12:49 MCH 29 pg (28-32) 10/30/19 12:49 MCHC 34 % (32-34) 10/30/19 12:49 RDW 18.9 % (13.2-15.2) H 10/30/19 12:49 Plt Count 88 K/mm3 (140-440) L 10/30/19 12:49 Lymph % (Auto) 30.8 % (13.4-35.0) 10/30/19 12:49 Imperial % (Auto) 10.1 % (0.0-7.3) H 10/30/19 12:49 Eos % (Auto) 2.9 % (0.0-4.3) 10/30/19 12:49 Baso % (Auto) 0.8 % (0.0-1.8) 10/30/19 12:49 Lymph # 1.4 K/mm3 (1.2-5.4) 10/30/19 12:49 Imperial # 0.4 K/mm3 (0.0-0.8) 10/30/19 12:49 Eos # 0.1 K/mm3 (0.0-0.4) 10/30/19 12:49 Baso # 0.0 K/mm3 (0.0-0.1) 10/30/19 12:49 Seg Neutrophils % 55.4 % (40.0-70.0) 10/30/19 12:49 Seg Neutrophils # 2.4 K/mm3 (1.8-7.7) 10/30/19 12:49 Sodium 136 mmol/L (137-145) L 10/30/19 12:49 Potassium 4.7 mmol/L (3.6-5.0) 10/30/19 12:49 Chloride 101.4 mmol/L (98-107) 10/30/19 12:49 Carbon Dioxide 23 mmol/L (22-30) 10/30/19 12:49 Anion Gap 16 mmol/L 10/30/19 12:49 BUN 8 mg/dL (9-20) L 10/30/19 12:49 Creatinine 0.5 mg/dL (0.8-1.5) L 10/30/19 12:49 Estimated GFR > 60 ml/min 10/30/19 12:49 BUN/Creatinine Ratio 16 % 10/30/19 12:49 Glucose 376 mg/dL (75-100) H 10/30/19 12:49 POC Glucose 278 (70-105) H 10/30/19 21:31 Calcium 8.4 mg/dL (8.4-10.2) 10/30/19 12:49 Phosphorus 2.60 mg/dL (2.5-4.5) 10/30/19 12:49 Magnesium 1.80 mg/dL (1.7-2.3) 10/30/19 12:49 Total Bilirubin 2.10 mg/dL (0.1-1.2) H 10/30/19 12:49 AST 46 units/L (5-40) H 10/30/19 12:49 ALT 29 units/L (7-56) 10/30/19 12:49 Alkaline Phosphatase 224 units/L (35-129) H 10/30/19 12:49 Ammonia 39.0 umol/L (25-60) 10/30/19 12:49 Total Protein 7.3 g/dL (6.3-8.2) 10/30/19 12:49 Albumin 2.6 g/dL (3.9-5) L 10/30/19 12:49 Albumin/Globulin Ratio 0.6 % 10/30/19 12:49 Short CBC 10/30/19 Range/Units 12:49 WBC 4.4 L (4.5-11.0) K/mm3 Hgb 10.8 L (11.8-15.2) gm/dl Hct 32.1 L (35.5-45.6) % Plt Count 88 L (140-440) K/mm3 BMP 10/30/19 12:49 Sodium 136 L Potassium 4.7 Chloride 101.4 Carbon Dioxide 23 BUN 8 L Creatinine 0.5 L Glucose 376 H Calcium 8.4 Liver Function 10/30/19 Range/Units 12:49 Total Bilirubin 2.10 H (0.1-1.2) mg/dL AST 46 H (5-40) units/L ALT 29 (7-56) units/L Alkaline Phosphatase 224 H (35-129) units/L Albumin 2.6 L (3.9-5) g/dL - Imaging and Cardiology Chest x-ray: report reviewed Imaging and Cardiology: CXR IMPRESSION: 1. Bibasilar subsegmental atelectasis. Assessment and Plan Advance Directives: Yes (Full code) VTE prophylaxis?: Chemical Plan of care discussed with patient/family: Yes - Patient Problems (1) Ascites due to alcoholic cirrhosis Current Visit: Yes Status: Chronic Plan to address problem: Paracentesis by Radiolgy department --CT guided paracentesis Fluid to be sent for Cell count LDH ,Total prptein and Glucose level/Amylase level (2) HTN (hypertension) Current Visit: Yes Status: Chronic Qualifiers: Hypertension type: essential hypertension Qualified Code(s): I10 - Essential (primary) hypertension Plan to address problem: Cont Nadolol and Aldactone (3) Hepatic failure Current Visit: Yes Status: Chronic Qualifiers: Liver failure chronicity: chronic Plan to address problem: Cont Lasctulose to prevent Hepatic encephalopathy (4) GERD (gastroesophageal reflux disease) Current Visit: Yes Status: Chronic Qualifiers: Esophagitis presence: with esophagitis Qualified Code(s): K21.0 - Gastro- esophageal reflux disease with esophagitis Plan to address problem: COnt PPI's (5) Malnutrition Current Visit: Yes Status: Chronic Qualifiers: Protein-calorie malnutrition severity: moderate Plan to address problem: Dietitian consult (6) Anemia Current Visit: Yes Status: Chronic Qualifiers: Anemia type: unspecified type Qualified Code(s): D64.9 - Anemia, unspecified Plan to address problem: Anemia w/u (7) Hyperglycemia Current Visit: No Status: Chronic Plan to address problem: Insulin coverage for now Check a1c (8) DVT prophylaxis Current Visit: Yes Status: Acute Plan to address problem: On Heparin and GI prophylaxis
[2019-10-31 08:08] LABS: Basophils % (Auto) 1.2 % (0.0-1.8); Eosinophils # (Auto) 0.2 K/mm3 (0.0-0.4); Eosinophils % (Auto) 3.7 % (0.0-4.3); Hematocrit 29.9 % (35.5-45.6); Lymphocytes # (Auto) 1.3 K/mm3 (1.2-5.4); Lymphocytes % (Auto) 31.3 % (13.4-35.0); Mean Corpuscular HGB Conc 34 % (32-34); Mean Corpuscular Volume 87 fl (84-94); Monocytes # (Auto) 0.4 K/mm3 (0.0-0.8); Monocytes % (Auto) 9.6 % (0.0-7.3); Red Blood Count 3.45 M/mm3 (3.65-5.03); Red Cell Distribution Width 19.3 % (13.2-15.2)
[2019-10-31 08:22] LABS: Platelet Count 80 K/mm3 (140-440)
[2019-10-31 08:33] LABS: Alanine Aminotransferase 23 units/L (7-56); BUN/Creatinine Ratio 12; Blood Urea Nitrogen 7 mg/dL (9-20); Calcium 7.9 mg/dL (8.4-10.2); Hemolysis Index 5
[2019-10-31 09:13] LABS: % Iron Saturation 55.78 %
--- NOTE | 2019-10-31 09:35 | Progress Note ---
Assessment and Plan Assessment and plan: 49-year-old male with history of alcoholic liver cirrhosis, gastric varices, esophageal varices status post banding, presents to ED with complaint of worsening abdominal distention x 2 weeks. c/o he has had shortness of breath and worsening of his bilateral lower extremity edema x2 days. Patient states he is unable to afford his water pill and therefore has not been taking it. Patient reports he has had paracentesis before, approximately 3 years ago. Decompensated Liver failure, CLD with fluid overload, ascites, extremity edema GI consult -Cont Nadolol and Aldactone, give judiciously given low BP, His BP runs low at baseline -Cont Lactulose to prevent Hepatic encephalopathy Ascites Diagnostic and therapeutic Paracentesis by Radiolgy department --CT guided paracentesis Fluid to be sent for Cell count LDH ,Total prptein and Glucose level/Amylase level GERD (gastroesophageal reflux disease) COnt PPI's severe Malnutrition Dietitian consult Normocytic anemia of chronic disease TIBC is low, B12 elevated. Patient is neither iron deficient nor B12 deficiency. Hemoglobin stable, no further work-up indicated Dm w Hyperglycemia Insulin coverage for now a1c 9.6 DVT prophylaxis On Heparin and GI prophylaxis Preventative health counseling performed for 17 minutes -Case management offered patient resources to get visits and to afford his medications pt is homeless, CM is helping with snf placement. History Interval history: Review of systems Constitutional: No fevers, no malaise, no joint pains CVS: No chest pain, no orthopnea, complaining of pedal edema GI: Continues to complain of abdominal distention Respiratory: , no wheezing, no coughing, has relative shortness of breath due to his enlarged belly Hospitalist Physical - Physical exam Narrative exam: General.: Mild distress HEENT: Jaundice Neck: supple Cardiac: S1-S2 heard Lungs: clear to auscultation bilaterally Abdomen: soft , distended with shifting dullness Extremities: bipedal pitting edema Skin: no rash or lesions Neurologic: no gross focal deficits Psych: calm, and cooperative - Constitutional Vitals: Temp Pulse Resp BP Pulse Ox 98.1 F 74 17 88/60 95 10/31/19 04:21 10/31/19 04:21 10/31/19 04:21 10/31/19 04:21 10/31/19 04:21 General appearance: Present: mild distress, well-nourished Results - Labs CBC & Chem 7: 10/31/19 07:55 10/31/19 07:55 Labs: Laboratory Last Values WBC 4.2 K/mm3 (4.5-11.0) L 10/31/19 07:55 RBC 3.45 M/mm3 (3.65-5.03) L 10/31/19 07:55 Hgb 10.0 gm/dl (11.8-15.2) L 10/31/19 07:55 Hct 29.9 % (35.5-45.6) L 10/31/19 07:55 MCV 87 fl (84-94) 10/31/19 07:55 MCH 29 pg (28-32) 10/31/19 07:55 MCHC 34 % (32-34) 10/31/19 07:55 RDW 19.3 % (13.2-15.2) H 10/31/19 07:55 Plt Count 80 K/mm3 (140-440) L 10/31/19 07:55 Lymph % (Auto) 31.3 % (13.4-35.0) 10/31/19 07:55 [place] % (Auto) 9.6 % (0.0-7.3) H 10/31/19 07:55 Eos % (Auto) 3.7 % (0.0-4.3) 10/31/19 07:55 Baso % (Auto) 1.2 % (0.0-1.8) 10/31/19 07:55 Lymph # 1.3 K/mm3 (1.2-5.4) 10/31/19 07:55 [place] # 0.4 K/mm3 (0.0-0.8) 10/31/19 07:55 Eos # 0.2 K/mm3 (0.0-0.4) 10/31/19 07:55 Baso # 0.0 K/mm3 (0.0-0.1) 10/31/19 07:55 Seg Neutrophils % 54.2 % (40.0-70.0) 10/31/19 07:55 Seg Neutrophils # 2.3 K/mm3 (1.8-7.7) 10/31/19 07:55 Sodium 139 mmol/L (137-145) 10/31/19 07:55 Potassium 3.8 mmol/L (3.6-5.0) 10/31/19 07:55 Chloride 105.8 mmol/L (98-107) 10/31/19 07:55 Carbon Dioxide 23 mmol/L (22-30) 10/31/19 07:55 Anion Gap 14 mmol/L 10/31/19 07:55 BUN 7 mg/dL (9-20) L 10/31/19 07:55 Creatinine 0.6 mg/dL (0.8-1.5) L 10/31/19 07:55 Estimated GFR > 60 ml/min 10/31/19 07:55 BUN/Creatinine Ratio 12 % 10/31/19 07:55 Glucose 200 mg/dL (75-100) H 10/31/19 07:55 POC Glucose 193 (70-105) H 10/31/19 07:46 Hemoglobin A1c 9.6 % (4-6) H 10/31/19 07:55 Calcium 7.9 mg/dL (8.4-10.2) L 10/31/19 07:55 Phosphorus 2.60 mg/dL (2.5-4.5) 10/30/19 12:49 Magnesium 1.80 mg/dL (1.7-2.3) 10/30/19 12:49 Iron 82 ug/dL (49-181) 10/31/19 08:28 TIBC 147 mcg/dL (250-450) L 10/31/19 08:28 % Saturation 55.78 % 10/31/19 08:28 Transferrin 145 mg/dl (180-329) L 10/31/19 08:28 Total Bilirubin 1.90 mg/dL (0.1-1.2) H 10/31/19 07:55 AST 37 units/L (5-40) 10/31/19 07:55 ALT 23 units/L (7-56) 10/31/19 07:55 Alkaline Phosphatase 180 units/L (35-129) H 10/31/19 07:55 Ammonia 39.0 umol/L (25-60) 10/30/19 12:49 Total Protein 6.2 g/dL (6.3-8.2) L 10/31/19 07:55 Albumin 2.0 g/dL (3.9-5) L 10/31/19 07:55 Albumin/Globulin Ratio 0.5 % 10/31/19 07:55 Vitamin B12 997.6 pg/mL (211-911) H 10/31/19 08:28 Active Medications - Current Medications Current Medications: Generic Name Dose Route Start Last Admin Trade Name Freq PRN Reason Stop Dose Admin Acetaminophen 650 mg 10/30/19 20:24 Tylenol PO Q4H PRN Pain MILD(1-3)/Fever >100.5/JACKSON Hydromorphone HCl 0.5 mg 10/30/19 20:24 Dilaudid IV Q3H PRN Pain , Severe (7-10) Lactulose 20 gm 10/30/19 22:00 10/30/19 21:18 Cephulac PO 20 gm BID HENRY Administration Morphine Sulfate 2 mg 10/30/19 20:24 Morphine IV Q4H PRN Pain, Moderate (4-6) Multivitamins 1 each 10/31/19 10:00 Theragran Tab PO QDAY HENRY Nadolol 20 mg 10/30/19 21:00 10/30/19 23:20 Corgard PO 20 mg QDAY HENRY Administration Ondansetron HCl 4 mg 10/30/19 20:20 Zofran Odt PO Q8HR PRN Vomiting Ondansetron HCl 4 mg 10/30/19 20:24 Zofran IV Q3H PRN Nausea And Vomiting Pantoprazole Sodium 40 mg 10/30/19 22:00 10/30/19 21:18 Protonix PO 40 mg BID HENRY Administration Sodium Chloride 10 ml 10/30/19 22:00 10/30/19 21:19 Sodium Chloride Flush Syringe 10 Ml IV 10 ml BID HENRY Administration Sodium Chloride 10 ml 10/30/19 20:24 Sodium Chloride Flush Syringe 10 Ml IV PRN PRN LINE FLUSH Tramadol HCl 50 mg 10/30/19 20:20 10/30/19 20:39 Ultram PO 50 mg Q6HR PRN Administration PAIN
[2019-10-31] MEDS ORDERED: DEXTROSE 50% IN WATER (25GM) 50 ML SYRINGE IV PRN (09:45)
[2019-10-31] MEDS: LACTULOSE 20 GM/30 ML ORAL LIQD PO SCH ×2 (09:55→21:41)
[2019-10-31] MEDS: PANTOPRAZOLE 40 MG TAB PO SCH ×2 (09:55→21:40)
[2019-10-31] MEDS: NADOLOL 20 MG TAB PO SCH (09:55)
[2019-10-31] MEDS: MULTIVITAMINS ,THERAPEUTIC TAB PO SCH (09:55)
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
[2019-10-31 11:28] LABS: INR 1.4 (0.87-1.13)
[2019-10-31] MEDS: INSULIN LISPRO 100 UNIT/ML SUB-Q SCH ×3 (12:00→22:21)
[2019-10-31] MEDS ORDERED: FUROSEMIDE 40 MG TAB PO SCH (13:00)
[2019-10-31] MEDS: SPIRONOLACTONE 50 MG TAB PO SCH ×2 (14:02→21:41)
--- NOTE | 2019-10-31 14:02 | Procedure Note ---
Date of procedure: 10/31/19 Pre-op diagnosis: ascites Procedure: US paracentesis Findings: moderate to large ascites Anesthesia: local Surgeon: BEN SEAY Estimated blood loss: none Pathology: list (120cc) Specimen disposition: to lab Condition: stable Disposition: floor
[2019-10-31] MEDS: traMADol 50 MG TAB PO PRN (14:03)
--- NOTE | 2019-10-31 14:06 | Ultrasound Report ---
ULTRASOUND-GUIDED PARACENTESIS HISTORY: ascites. PROCEDURE: The risks (including but not limited to bleeding, infection, and bowel injury) and benefi ts were explained to the patient and informed consent was obtained. A time out procedure was perform ed. Ultrasound was used to evaluate the abdomen and locate the largest ascites fluid pocket. Once the sk in was marked, the procedure site was prepped and draped in the usual sterile fashion and lidocaine w as used for local anesthesia. A skin darcy was made and a 5 [place] centesis catheter was placed. The patient was monitored closely throughout the procedure, and a total of 4100 mL of yellow fluid was a spirated. Samples were sent to the lab for further evaluation per the primary clinicians orders. The patient tolerated the procedure well with no complications. IMPRESSION: Successful ultrasound-guided paracentesis as described. Signer Name: Marin Baugh Jr, MD Signed: 10/31/2019 2:02 PM Workstation Name: [id number]
[2019-10-31 14:47] LABS: Total Cells Counted 100 /mm3
[2019-10-31] MEDS: FUROSEMIDE 20 MG/2 ML INJ IV SCH (19:01)
[2019-11-01] MEDS: FUROSEMIDE 20 MG/2 ML INJ IV SCH ×2 (06:33→17:49)
[2019-11-01] MEDS: INSULIN LISPRO 100 UNIT/ML SUB-Q SCH ×4 (08:52→22:34)
[2019-11-01] MEDS: NADOLOL 20 MG TAB PO SCH (09:18)
[2019-11-01] MEDS: SPIRONOLACTONE 50 MG TAB PO SCH ×3 (09:18→22:36)
[2019-11-01] MEDS: PANTOPRAZOLE 40 MG TAB PO SCH ×2 (09:19→22:33)
[2019-11-01] MEDS: MULTIVITAMINS ,THERAPEUTIC TAB PO SCH (09:19)
[2019-11-01] MEDS: LACTULOSE 20 GM/30 ML ORAL LIQD PO SCH ×2 (09:19→22:33)
--- NOTE | 2019-11-01 11:09 | Gastroenterology Progress Note ---
<ARI VILLAR - Last Filed: 11/01/19 11:09> Assessment and Plan 1.ascites 2.H/o cirrhosis/varices -afebrile -WBC 4.2 -H/H 10.0/29.9-no active signs of bleeding -plt 80, INR 1.40 -acute hepatitis panel negative 2018 -ammonia WNL (39) -LFTs- T.stephania 1.90, AST 37, ALT 23, alk phos 180- stable -etiology-patient has a hx of cirrhosis 2/2 remote ETOH abuse (no alcohol in ~2 years) and possibly fatty liver complicated by portal hypertension, esophageal/gastric varices (s/p banding 02/2019), ascites, and hepatic encephalopathy- currently not a candidate for liver transplant evaluation due to lack of insurance -clinically, patient is stable with abd distention now improved. No N/V or signs of bleeding. No encephalopathy noted upon exam. -s/p paracentesis yesterday (10/31/19) with 4100ml fluid removed w/ no evidence of SBP -LVP PRN -continue nadalol as tolerated (chronic hypotension) -continue lactulose (titrate to goal of BMs x 2-3/day) -continue PPI -continue diuretics aldactone (50mg BID) and lasix 40mg daily as tolerated -low sodium diet -continue alcohol cessation -avoid narcotics/sedatives -continue to trend labs and supportive care -patient okay to be d/c per GI standpoint on above medications with f/u in clinic -no further recommendations at this time, will sign off. Please call if needed Subjective Date of service: 11/01/19 Principal diagnosis: ascites, cirrhosis Interval history: Patient resting in bed this am w/o acute distress. Reports feeling better today with abd distention improved s/p paracentesis yesterday. Denies N/V or signs of bleeding. Tolerating diet. Objective - Constitutional Vitals: Temp Pulse Resp BP Pulse Ox 98.0 F 83 18 100/70 96 11/01/19 06:02 11/01/19 09:14 11/01/19 06:02 11/01/19 09:18 11/01/19 09:14 General appearance: no acute distress - EENT Eyes: PERRL, EOM intact ENT: hearing intact - Respiratory Respiratory effort: normal - Cardiovascular Rhythm: regular - Gastrointestinal General gastrointestinal: Present: soft, non-tender, distended (slightly), no rmal bowel sounds - Integumentary Integumentary: Present: warm, dry - Neurologic Neurological: alert and oriented x3 - Labs CBC & Chem 7: 10/31/19 07:55 10/31/19 07:55 Labs: Laboratory Results - last 24 hr 10/31/19 10/31/19 10/31/19 09:57 11:25 12:30 PT 17.4 H INR 1.40 H POC Glucose 179 H Fluid Type Ascitic Fluid Color Yellow Fluid Appearance Cloudy Fluid WBC 208 Fluid RBC 183 Fluid Seg Neutrophils 15.0 Fluid Lymphocytes 53.0 Fluid Reactive Lymphs 0 Fluid Monocytes 32.0 Fluid Eosinophils 0 Fluid Basophils 0 10/31/19 10/31/19 11/01/19 16:30 22:38 07:46 PT INR POC Glucose 279 H 254 H 153 H Fluid Type Fluid Color Fluid Appearance Fluid WBC Fluid RBC Fluid Seg Neutrophils Fluid Lymphocytes Fluid Reactive Lymphs Fluid Monocytes Fluid Eosinophils Fluid Basophils <JESSEE BELLO - Last Filed: 11/01/19 16:28> Assessment and Plan Patient seen and examined; agree with note above. s/p diagnostic/therapeutic paracentesis (no sbp). started on diuretics. monitor labs and cont if renal function/electrolytes stable. low sodium diet and f/u in gi clinic after d/c for continued management of cirrhosis will sign off, please call as needed or with questions. Objective - Constitutional Vitals: Temp Pulse Resp BP Pulse Ox 98.9 F 81 18 93/63 94 11/01/19 11:16 11/01/19 11:16 11/01/19 11:16 11/01/19 11:16 11/01/19 11:16 - Labs CBC & Chem 7: 10/31/19 07:55 10/31/19 07:55 Labs: Laboratory Results - last 24 hr 10/31/19 10/31/19 11/01/19 16:30 22:38 07:46 POC Glucose 279 H 254 H 153 H 11/01/19 11:25 POC Glucose 216 H
[2019-11-01] MEDS: traMADol 50 MG TAB PO PRN (17:51)
--- NOTE | 2019-11-01 18:26 | Progress Note ---
Assessment and Plan Assessment and plan: 49-year-old male with history of alcoholic liver cirrhosis, gastric varices, esophageal varices status post banding, presents to ED with complaint of worsening abdominal distention x 2 weeks. c/o he has had shortness of breath and worsening of his bilateral lower extremity edema x2 days. Patient states he is unable to afford his water pill and therefore has not been taking it. Patient reports he has had paracentesis before, approximately 3 years ago. --Chronic liver failure /cirrhosis of liver: with fluid overload, ascites, extremity edema GI consult -Cont Nadolol and Aldactone, give judiciously given low BP, His BP runs low at baseline -Cont Lactulose to prevent Hepatic encephalopathy --Massive ascites: diagnostic and therapeutic Paracentesis by Radiolgy department CT guided paracentesis mullah 4.1 L peritoneal fluid Fluid to be sent for Cell count LDH ,Total prptein and Glucose level/Amylase level --GERD: cOnt PPI's --Severe malnutrition :dietitian consult Supportive care --Chronic anemia :TIBC is low, B12 elevated. Patient is neither iron deficient nor B12 deficiency. Hemoglobin stable, no further work-up indicated --Type 2 diabetes mellitus : --insulin coverage for now a1c 9.6 --DVT prophylaxis: on Heparin and GI prophylaxis --Preventative health counseling performed for 17 minutes -Case management offered patient resources to get visits and to afford his medications pt is homeless, CM is helping with [facility] placement. Disposition; continue inpatient management Follow peritoneal fluid analysis, follow blood pressures[patient hypotensive] Patient is homeless, CM assisting with discharge planning Possible discharge home tomorrow if stable History Interval history: Patient seen and examined medical records reviewed Patient underwent abdominal paracentesis and removal of 4.1 L of peritoneal fluid Fluid analysis still pending, Patient is hypotensive, Patient denies any dizziness, syncope or chest pain Vital signs noted Hospitalist Physical - Constitutional Vitals: Temp Pulse Resp BP Pulse Ox 97.0 F L 83 20 87/47 95 11/01/19 16:46 11/01/19 16:46 11/01/19 16:46 11/01/19 16:46 11/01/19 16:46 General appearance: Present: mild distress, well-nourished - EENT Eyes: Present: PERRL, EOM intact - Neck Neck: Present: supple, normal ROM - Respiratory Respiratory effort: normal Respiratory: bilateral: diminished, rales, negative: rhonchi, wheezing - Cardiovascular Rhythm: regular Heart Sounds: Present: S1 & S2 - Extremities Extremities: no ischemia Extremity abnormal: edema - Abdominal General gastrointestinal: soft, non-tender, non-distended, normal bowel sounds, other (Ascites) - Integumentary Integumentary: Present: clear, warm - Psychiatric Psychiatric: appropriate mood/affect, cooperative - Neurologic Neurologic: moves all extremities Results - Labs CBC & Chem 7: 10/31/19 07:55 10/31/19 07:55 Labs: Laboratory Last Values WBC 4.2 K/mm3 (4.5-11.0) L 10/31/19 07:55 RBC 3.45 M/mm3 (3.65-5.03) L 10/31/19 07:55 Hgb 10.0 gm/dl (11.8-15.2) L 10/31/19 07:55 Hct 29.9 % (35.5-45.6) L 10/31/19 07:55 MCV 87 fl (84-94) 10/31/19 07:55 MCH 29 pg (28-32) 10/31/19 07:55 MCHC 34 % (32-34) 10/31/19 07:55 RDW 19.3 % (13.2-15.2) H 10/31/19 07:55 Plt Count 80 K/mm3 (140-440) L 10/31/19 07:55 Lymph % (Auto) 31.3 % (13.4-35.0) 10/31/19 07:55 [place] % (Auto) 9.6 % (0.0-7.3) H 10/31/19 07:55 Eos % (Auto) 3.7 % (0.0-4.3) 10/31/19 07:55 Baso % (Auto) 1.2 % (0.0-1.8) 10/31/19 07:55 Lymph # 1.3 K/mm3 (1.2-5.4) 10/31/19 07:55 [place] # 0.4 K/mm3 (0.0-0.8) 10/31/19 07:55 Eos # 0.2 K/mm3 (0.0-0.4) 10/31/19 07:55 Baso # 0.0 K/mm3 (0.0-0.1) 10/31/19 07:55 Seg Neutrophils % 54.2 % (40.0-70.0) 10/31/19 07:55 Seg Neutrophils # 2.3 K/mm3 (1.8-7.7) 10/31/19 07:55 PT 17.4 Sec. (12.2-14.9) H 10/31/19 09:57 INR 1.40 (0.87-1.13) H 10/31/19 09:57 Sodium 139 mmol/L (137-145) 10/31/19 07:55 Potassium 3.8 mmol/L (3.6-5.0) 10/31/19 07:55 Chloride 105.8 mmol/L (98-107) 10/31/19 07:55 Carbon Dioxide 23 mmol/L (22-30) 10/31/19 07:55 Anion Gap 14 mmol/L 10/31/19 07:55 BUN 7 mg/dL (9-20) L 10/31/19 07:55 Creatinine 0.6 mg/dL (0.8-1.5) L 10/31/19 07:55 Estimated GFR > 60 ml/min 10/31/19 07:55 BUN/Creatinine Ratio 12 % 10/31/19 07:55 Glucose 200 mg/dL (75-100) H 10/31/19 07:55 POC Glucose 200 (70-105) H 11/01/19 16:59 Hemoglobin A1c 9.6 % (4-6) H 10/31/19 07:55 Calcium 7.9 mg/dL (8.4-10.2) L 10/31/19 07:55 Phosphorus 2.60 mg/dL (2.5-4.5) 10/30/19 12:49 Magnesium 1.80 mg/dL (1.7-2.3) 10/30/19 12:49 Iron 82 ug/dL (49-181) 10/31/19 08:28 TIBC 147 mcg/dL (250-450) L 10/31/19 08:28 % Saturation 55.78 % 10/31/19 08:28 Transferrin 145 mg/dl (180-329) L 10/31/19 08:28 Total Bilirubin 1.90 mg/dL (0.1-1.2) H 10/31/19 07:55 AST 37 units/L (5-40) 10/31/19 07:55 ALT 23 units/L (7-56) 10/31/19 07:55 Alkaline Phosphatase 180 units/L (35-129) H 10/31/19 07:55 Ammonia 39.0 umol/L (25-60) 10/30/19 12:49 Total Protein 6.2 g/dL (6.3-8.2) L 10/31/19 07:55 Albumin 2.0 g/dL (3.9-5) L 10/31/19 07:55 Albumin/Globulin Ratio 0.5 % 10/31/19 07:55 Vitamin B12 997.6 pg/mL (211-911) H 10/31/19 08:28 Fluid Type Ascitic 10/31/19 12:30 Fluid Color Yellow 10/31/19 12:30 Fluid Appearance Cloudy 10/31/19 12:30 Fluid WBC 208 /mm3 10/31/19 12:30 Fluid RBC 183 /mm3 10/31/19 12:30 Fluid Seg Neutrophils 15.0 % 10/31/19 12:30 Fluid Lymphocytes 53.0 % 10/31/19 12:30 Fluid Reactive Lymphs 0 % 10/31/19 12:30 Fluid Monocytes 32.0 % 10/31/19 12:30 Fluid Eosinophils 0 % 10/31/19 12:30 Fluid Basophils 0 % 10/31/19 12:30 Active Medications - Current Medications Current Medications: Generic Name Dose Route Start Last Admin Trade Name Freq PRN Reason Stop Dose Admin Acetaminophen 650 mg 10/30/19 20:24 Tylenol PO Q4H PRN Pain MILD(1-3)/Fever >100.5/JACKSON Dextrose 50 ml 10/31/19 09:45 D50w (25gm) Syringe IV Q30MIN PRN Hypoglycemia Protocol Furosemide 20 mg 10/31/19 18:00 11/01/19 17:49 Lasix IV Not Given 0600,1800 HENRY Hydromorphone HCl 0.5 mg 10/30/19 20:24 Dilaudid IV Q3H PRN Pain , Severe (7-10) Insulin Human Lispro 0 unit 10/31/19 11:30 11/01/19 17:41 Humalog SUB-Q 3 unit ACHS HENRY Administration Protocol Lactulose 20 gm 10/30/19 22:00 11/01/19 09:19 Cephulac PO 20 gm BID HENRY Administration Morphine Sulfate 2 mg 10/30/19 20:24 10/31/19 23:21 Morphine IV 2 mg Q4H PRN Administration Pain, Moderate (4-6) Multivitamins 1 each 10/31/19 10:00 11/01/19 09:19 Theragran Tab PO 1 each QDAY HENRY Administration Nadolol 20 mg 10/30/19 21:00 11/01/19 09:18 Corgard PO Not Given QDAY HENRY Ondansetron HCl 4 mg 10/30/19 20:20 Zofran Odt PO Q8HR PRN Vomiting Ondansetron HCl 4 mg 10/30/19 20:24 Zofran IV Q3H PRN Nausea And Vomiting Pantoprazole Sodium 40 mg 10/30/19 22:00 11/01/19 09:19 Protonix PO 40 mg BID HENRY Administration Sodium Chloride 10 ml 10/30/19 22:00 11/01/19 09:23 Sodium Chloride Flush Syringe 10 Ml IV 10 ml BID HENRY Administration Sodium Chloride 10 ml 10/30/19 20:24 Sodium Chloride Flush Syringe 10 Ml IV PRN PRN LINE FLUSH Spironolactone 50 mg 10/31/19 13:00 11/01/19 09:18 Aldactone PO Not Given BID HENRY Tramadol HCl 50 mg 10/30/19 20:20 11/01/19 17:51 Ultram PO 50 mg Q6HR PRN Administration PAIN Nutrition/Malnutrition Assess - Dietary Evaluation Nutrition/Malnutrition Findings: Nutrition Notes Start: 10/31/19 16:03 Freq: Status: Active Protocol: Document 10/31/19 16:03 IKER (Rec: 10/31/19 16:14 [id number]) Nutrition Notes Need for Assessment generated from: MD Order Initial or Follow up Assessment Other Pertinent Diagnosis Abdominal distension, Bilat LE edema, Ascites Current Diet Cardiac Labs/Tests A1C 9.6 tBili 1.9 TIBC 147 Pertinent Medications Lactulose, MVI, Protonix Height 5 ft 8 in Weight 99 kg Usual Body Weight 86.4 kg [place] Body Weight (kg) 70.00 BMI 33.2 Weight change and time frame Pt with a lot of edema. Reports unintentional wt loss. Subjective/Other Information RD consulted for malnutrition. Pt with hx of alcoholic liver disease. s/p paracentesis today. Reports good appetite. Burn Absent Trauma Absent GI Symptoms Constipation Interpretation of Weight Loss (non- 10% in 6 months severe) Muscle Mass Mild Depletion (non-severe) Fluid Accumulation Moderate to Severe (severe) Protein-Calorie Malnutrition Non-Severe #1 Nutrition Diagnosis Malnutrition Etiology hx of alcoholic liver cirrhosis As Evidenced by Signs and Symptoms pt reports unintentional wt loss, fluid retention Is patient on ventilator? No Is Patient Ambulatory and/or Out of Bed Yes REE[facility]OOB) [ 1091.350 NUTR.[id number]] Kcal/Kg value to use for calculation 20 Approximate Energy Requirements Using 1980 kcal/Kg Calculation Used for Recommendations Kcal/kg Additional Notes Pro needs 1-1.2g/k-101g/ day Fluid needs per MD Nutrition Intervention Change Diet Order: Continue current diet; add Consistent CHO restriction Goal #1 PO intakes to meet at least 75 % energy and pro needs Goal #2 Wt maintenance Anticipated Discharge Needs: Adhere to CHO-controlled, low sodium diet Follow-Up By: 11/02/19 Additional Comments F/U: intakes, need for diet education
[2019-11-02] MEDS: FUROSEMIDE 20 MG/2 ML INJ IV SCH (05:14)
[2019-11-02] MEDS: INSULIN LISPRO 100 UNIT/ML SUB-Q SCH ×2 (09:00→12:30)
[2019-11-02] MEDS: PANTOPRAZOLE 40 MG TAB PO SCH (09:33)
[2019-11-02] MEDS: MULTIVITAMINS ,THERAPEUTIC TAB PO SCH (09:33)
[2019-11-02] MEDS: LACTULOSE 20 GM/30 ML ORAL LIQD PO SCH (09:41)
[2019-11-02] MEDS: SPIRONOLACTONE 50 MG TAB PO SCH (10:20)
[2019-11-02] MEDS: NADOLOL 20 MG TAB PO SCH (11:00)
[2019-11-02 12:35] VITALS: BP 96/65
--- NOTE | 2019-11-02 13:44 | Discharge Summary ---
Providers - Providers Date of Admission: 11/01/19 09:36 Date of discharge: 11/02/19 Attending physician: MARGARITO PALACIO 10/30/19 20:24 Consult to Physician [CONS] Routine Comment: Consulting Provider: JESSEE BELLO Physician Instructions: Reason For Exam: Ascites 10/31/19 09:45 Consult to Dietitian/Nutrition [CONS] Routine Physician Instructions: Reason For Exam: Reason for Consult: Malnutrition Physical Therapy Evaluation and Treat [CONS] Routine Comment: Reason For Exam: debility [facility] Condition: Stable Exam - Constitutional Vitals: Temp Pulse Resp BP Pulse Ox 98.7 F 83 20 96/65 95 11/02/19 12:15 11/02/19 12:15 11/02/19 12:15 11/02/19 12:15 11/02/19 12:15 Plan Follow up with: GIOVANNA GONZALESBRUSLY MD JAVED [Primary Care Provider] - 7 Days JESSEE BELLO MD [Staff Physician] - 7 Days Prescriptions: Spironolactone [Aldactone] 50 mg PO BID #60 tablet Furosemide [Lasix] 20 mg PO QDAY #30 tablet
[2019-11-03 09:32] LABS: Amylase,Body Fluid 15; LDH,Body Fluid 20; Total Protein,Body Fluid < 3.0 (15.0-45.0)
== END 2019-11-02 14:00 | disposition home or self-care (01) | DRG 432 ==
LOC: ED 11:42 → 3A 14:32 → OBSVTOIN 11-01 09:36
PROVIDERS: ADMIT Internal Medicine; ATTEND Internal Medicine
PROC: 0W9G3ZZ Drainage of Peritoneal Cavity, Percutaneous Approach (ICD-10-PCS; principal; 2019-10-31)
DX: K70.31 Alcoholic cirrhosis of liver with ascites (principal); E43 Unspecified severe protein-calorie malnutrition; K76.6 Portal hypertension; E11.65 Type 2 diabetes mellitus with hyperglycemia; K72.90 Hepatic failure, unspecified without coma; K21.0 Gastro-esophageal reflux disease with esophagitis; R14.0 Abdominal distension (gaseous); D64.9 Anemia, unspecified; I10 Essential (primary) hypertension; E87.70 Fluid overload, unspecified; Z82.49 Family history of ischemic heart disease and other diseases of the circulatory system; Z79.899 Other long term (current) drug therapy; Z71.3 Dietary counseling and surveillance; Z68.31 Body mass index [BMI] 31.0-31.9, adult; Z87.891 Personal history of nicotine dependence
CPT/HCPCS: 36415; 49083; 71046; 80053; 82140; 82150; 82607; 82747; 82947; 82962; 83036; 83550; 83605; 83735; 84100; 84160; 85025; 85610; 87116; 88112; 88305; 88341; 88342; 89051; G0378; C9113; J1815; J1940; J2270

== ENCOUNTER 2020-01-26 10:35 | Outpatient (CLI) | payer MEDICAID ==
[2020-01-26 11:10] LABS: Eosinophils # (Auto) 0.2 K/mm3 (0.0-0.4); Eosinophils % (Auto) 3.3 % (0.0-4.3); Monocytes # (Auto) 0.5 K/mm3 (0.0-0.8); Monocytes % (Auto) 9.9 % (0.0-7.3)
[2020-01-26 11:21] LABS: Basophils % (Auto) 0.8 % (0.0-1.8); Hematocrit 35.4 % (35.5-45.6); Hemoglobin 11.8 gm/dl (11.8-15.2); Lymphocytes # (Auto) 1.3 K/mm3 (1.2-5.4); Mean Corpuscular Volume 85 fl (84-94); Red Blood Count 4.19 M/mm3 (3.65-5.03)
[2020-01-26 11:22] LABS: Mean Corpuscular HGB Conc 33 % (32-34); Platelet Count 86 K/mm3 (140-440); Red Cell Distribution Width 14.9 % (13.2-15.2)
[2020-01-26 11:25] LABS: Alanine Aminotransferase 28 units/L (7-56); Albumin 3.5 g/dL (3.9-5); BUN/Creatinine Ratio 13; Blood Urea Nitrogen 8 mg/dL (9-20); Calcium 8.9 mg/dL (8.4-10.2); Hemolysis Index 6; LDL Cholesterol,Direct 92 mg/dL (50-130)
[2020-01-26 11:43] LABS: Chol/HDL Ratio 3.65 %; HDL Cholesterol 41 mg/dL (40-59)
== END 2020-01-26 10:36 | disposition home or self-care (01) ==
LOC: LAB 10:35
PROVIDERS: ATTEND Internal Medicine
DX: Z13.21 Encounter for screening for nutritional disorder (principal); E56.9 Vitamin deficiency, unspecified
CPT/HCPCS: 36415; 80053; 80061; 82306; 82607; 83036; 85025

== ENCOUNTER 2020-05-14 11:57 | Outpatient (CLI) | payer MEDICAID | END 2020-05-14 11:58 | disposition home or self-care (01) | LOC: LAB 11:57 | PROVIDERS: ATTEND Internal Medicine | DX: E11.65 Type 2 diabetes mellitus with hyperglycemia (principal) | CPT/HCPCS: 36415; 83036 ==